=== PATIENT | female | born 1950 | race Caucasian/White ===

== ENCOUNTER 2021-11-21 11:27 | Outpatient (REF) | payer MEDICAID, SELFPAY ==
--- NOTE | ~2021-11-21 | MM_ITS ---
EXAMINATION: MM SCREENING DIGITAL BREAST TOMOSYNTHESIS, BILATERAL CLINICAL INFORMATION: Screening. Asymptomatic. Prior mammography from [place] currently unavailable. Age 71. The lifetime risk of breast cancer based on the Tyrer-Cuzick Model is 2%. COMPARISON: None. TECHNIQUE: Digital breast tomosynthesis is performed in both the craniocaudal and mediolateral oblique views along with computer-aided detection (CAD). Synthesized 2D images are generated from the tomosynthesis. FINDINGS: There are scattered areas of fibroglandular density (ACR BI-RADS breast composition Category b). There is no significant mass or architectural abnormality or abnormal calcifications. There are some scattered coarse predominantly vascular calcifications. The axilla and skin contours are unremarkable. If prior outside mammography is able to be retrieved, comparison will be made in an addendum report. MM/MM tomosynthesis screening BI IMPRESSION: No mammographic evidence of malignancy. ASSESSMENT: BI-RADS 1: Negative RECOMMENDATION: Routine annual mammography screening. This patient's information was entered into a reminder system with a target due date for their next mammogram.
== END 2021-11-21 11:28 | disposition home or self-care (01) ==
LOC: HO.MAMMO 11:27
PROVIDERS: PCP Family Medicine; Visit Provider Family Medicine
DX: Z12.31 Encounter for screening mammogram for malignant neoplasm of breast (principal)
CPT/HCPCS: 77063; 77067

== ENCOUNTER 2021-12-04 09:34 | Outpatient (REF) | payer MEDICAID, SELFPAY ==
[2021-12-04 10:53] LABS: MANUAL DIFF FLAG NO
[2021-12-04 11:10] LABS: Basophils Percent Auto 0.5 % (0-2); Eosinophils Absolute Auto 0.1 X10*3/uL (0.0-0.4); Eosinophils Percent Auto 1.1 % (0-4); Hematocrit 38.9 % (37.0-47.0); Hemoglobin 13.3 g/dl (12.0-16.0); Imm Gran Abs Auto 0.02 X10*3/uL (0.00-0.03); Imm Gran Pct Auto 0.3 % (0.0-0.4); Lymphocytes Absolute Auto 2.1 X10*3/uL (1.2-4.9); Lymphocytes Percent Auto 33.2 % (20-40); Mean Corpuscular HGB Conc 34.2 g/dl (31.0-35.0); Mean Corpuscular Hemoglobin 30.3 pg (27.0-33.0); Mean Corpuscular Volume 88.6 fL (80.0-98.0); Mean Platelet Volume 8.6 fL (9.4-12.3); Monocytes Absolute Auto 0.4 X10*3/uL (0.1-1.2); Monocytes Percent Auto 5.8 % (2-11); Neutrophils Absolute Auto 3.7 x10*3/uL (2.0-8.3); Neutrophils Percent Auto 59.1 % (45-73); Platelet Count 219 X10*3/uL (160-400); Red Blood Count 4.39 X10*6/uL (4.20-5.50); Red Cell Distribution Width 12.4 % (11.0-16.0); White Blood Count 6.2 X10*3/uL (4.8-10.8)
[2021-12-04 11:48] LABS: Erythrocyte Sedimentation Rate 7 MM/HR (0-20)
[2021-12-05 13:42] LABS: IgA 256 mg/dL (70-320); IgG 1296 mg/dL (600-1540); IgM 92 mg/dL (50-300)
== END 2021-12-04 09:35 | disposition home or self-care (01) ==
LOC: HO.LAB 09:34
PROVIDERS: PCP Family Medicine; Visit Provider Hospitalist
DX: Z23 Encounter for immunization (principal); R05.3 Chronic cough; J45.909 Unspecified asthma, uncomplicated
CPT/HCPCS: 36415; 82784; 82785; 85025; 85652; 86003; 90670; 99202

== ENCOUNTER 2022-01-03 08:23 | Outpatient (REF) | payer MEDICAID, SELFPAY ==
[2022-01-03 10:50] LABS: Alanine Aminotransferase 33 U/L (0-31); Albumin Level 4.3 g/dL (3.5-5.0); Alkaline Phosphatase 86 U/L (39-117); Anion Gap 10 (12-20); Aspartate Amino Transferase 32 U/L (5-31); Bilirubin Total 0.5 mg/dL (0.0-1.0); Blood Urea Nitrogen 13 mg/dL (9-16); Calcium 9.8 mg/dL (8.4-10.2); Carbon Dioxide 29 mmol/L (22-29); Chloride 101 mmol/L (96-108); Estimated Glomerular Filt Rate > 60; Glucose Random 86 mg/dL (60-115); Potassium 4.3 mmol/L (3.3-5.1); Sodium 136 mmol/L (135-145); Total Protein 7.4 g/dL (6.5-8.0)
== END 2022-01-03 08:24 | disposition home or self-care (01) ==
LOC: HO.LAB 08:23
PROVIDERS: PCP Family Medicine; Referring Provider Family Medicine; Visit Provider Nurse Practitioner Family
DX: Z12.11 Encounter for screening for malignant neoplasm of colon (principal)
CPT/HCPCS: 36415; 80053; 99202

== ENCOUNTER 2022-02-15 08:55 | Outpatient (REF) | payer MEDICAID, SELFPAY ==
--- NOTE | 2022-02-15 | PFT_ITS ---
INDICATION: COPD. SPIROMETRY: FEV1 to FVC of 66% with an FEV1 of 1.21 L, which is 70% predicted, FVC of 1.83 L, which is 80% predicted. No significant response to bronchodilators noted. [id number] 39% predicted. Maximum voluntary ventilation 67% predicted. LUNG VOLUMES: Total lung capacity 72% predicted with residual volume of 70% predicted. DIFFUSION CAPACITY: DLCO 89% predicted. COMPARISONS: None. INTERPRETATION: This is an obstructive ventilatory defect consistent with moderate COPD. Also has significant small airways disease, likely diagnosed with asthma, COPD overlap syndrome. Mild decrease in maximum voluntary ventilation secondary to likely deconditioning. In addition to that, there is a restrictive ventilatory defect consistent with mild restrictive lung disease of unclear etiology. The diffusion capacity is within normal limits. Clinical correlation warranted. Jose Lovelace MD MR/MODL / [id number]
== END 2022-02-15 08:56 | disposition home or self-care (01) ==
LOC: HO.RESP 08:55
PROVIDERS: PCP Family Medicine; Visit Provider Hospitalist
DX: J44.9 Chronic obstructive pulmonary disease, unspecified (principal); R05.3 Chronic cough; T78.40XA Allergy, unspecified, initial encounter
CPT/HCPCS: 94060; 94727; 94729; 99212

== ENCOUNTER 2022-04-20 08:20 | Day surgery (SDC) | payer MEDICAID, SELFPAY ==
[2022-04-16 10:20] VITALS: BMI 23.4
--- NOTE | 2022-04-19 11:43 | P.CONAN_ITS ---
Documented by User: Vicky Esparza NP 04/19/22 11:44 HPI - Anesthesia Eval Consult details Narrative: 71yo F for Colonoscopy PMFSH Active Problems Active Problems: All Active Problems (Updated 02/15/22 @ 19:46 by Jose Lovelace MD) Allergies (Acute) Asthma-COPD overlap syndrome (Acute) Chronic cough (Acute) Asthma (Acute) Past Medical History Medical History (Updated 02/15/22 @ 19:46 by Jose Lovelace MD) Allergies Asthma Asthma-COPD overlap syndrome Chronic cough Family History Family History (Updated 01/03/22 @ 08:36 by ZACHARY Shine) Daughter Stomach cancer Daughter HTN (hypertension) Daughter HTN (hypertension) Surgical History Surgical History (Updated 01/03/22 @ 08:35 by ZACHARY Shine) History of surgery on lower extremity Social History Social History Patient Tobacco Use Status: Never used Tobacco Second Hand Smoke Exposure: No Use of substances other than those prescribed or required for medical reasons: No Are you DNR?: No Advance Directives: No Advance Directives Information Provided: Yes Advance Directives on File: No Meds Allergies Allergy/AdvReac Type Severity Reaction Status Date / Time No Known Allergies Allergy Verified 02/15/22 10:28 Home Medications Medication Instructions Recorded Confirmed Last Taken Type beclomethasone dipropionate 40 2 inh inhalation Q12H 12/04/21 Unknown History mcg/actuation HFA breath activated aerosol rosuvastatin 20 mg tablet 20 mg PO DAILY 12/04/21 Unknown History atorvastatin 20 mg tablet 20 mg PO DAILY 01/03/22 Unknown History Exam Exam Date and Time: April 19, 2022 1143 Height,Weight and Vital Signs: Height 4 ft 11 in Weight 52.617 kg Pertinent Lab Results Pertinent Lab Results: Laboratory Tests 12/04/21 01/03/22 10:52 09:48 WBC 6.2 Hgb 13.3 Hct 38.9 Plt Count 219 Sodium 136 Potassium 4.3 Chloride 101 Carbon Dioxide 29 BUN 13 Creatinine 0.73 Narrative Narrative: PFT 01/2022 INTERPRETATION:? This is an obstructive ventilatory defect consistent with moderate COPD.? Also has significant small airways disease, likely diagnosed with asthma, COPD overlap syndrome.? Mild decrease in maximum voluntary ventilation secondary to likely deconditioning.? In addition to that, there is a restrictive ventilatory defect consistent with mild restrictive lung disease of unclear etiology.? The diffusion capacity is within normal limits.? Clinical correlation warranted. Assessment and Plan Assessment Anesthesia Assessment: Chart Reviewed Documented by User: Lady Kat MD 04/20/22 09:23 [facility] Past Medical History Medical History (Updated 02/15/22 @ 19:46 by Jose Lovelace MD) Allergies Asthma Asthma-COPD overlap syndrome Chronic cough Family History Family History (Updated 01/03/22 @ 08:36 by ZACHARY Shine) Daughter Stomach cancer Daughter HTN (hypertension) Daughter HTN (hypertension) Family history of problems with anesthesia: No Surgical History Surgical History (Updated 01/03/22 @ 08:35 by ZACHARY Shine) History of surgery on lower extremity History of Problems with Anesthesia: No Social History Social History Patient Tobacco Use Status: Never used Tobacco Second Hand Smoke Exposure: No Use of substances other than those prescribed or required for medical reasons: No Are you DNR?: No Advance Directives: No Advance Directives Information Provided: Yes Advance Directives on File: No Meds Allergies Allergy/AdvReac Type Severity Reaction Status Date / Time No Known Allergies Allergy Verified 02/15/22 10:28 Home Medications Medication Instructions Recorded Confirmed Last Taken Type beclomethasone dipropionate 40 2 inh inhalation Q12H 12/04/21 Unknown History mcg/actuation HFA breath activated aerosol rosuvastatin 20 mg tablet 20 mg PO DAILY 12/04/21 Unknown History atorvastatin 20 mg tablet 20 mg PO DAILY 01/03/22 Unknown History Exam Airway Mallampati Class: III TM Dist: >3cm Neck ROM: Full Denture: Lower Partial: Upper Loose/Missing/Broken Teeth: Yes, Upper and Lower Assessment and Plan Assessment Anesthesia Assessment: Anesthesia Plan Discussed Final Anesthetic Review Family History of Problems with Anesthesia: No History of Problems with Anesthesia: No NPO: Yes ASA Class: II Final Preanesthetic Review: No Changes in Pt Med Stat, Meds/Allgs Chart Reviewed, Consent Obtained/Reviewed and Anes Risks/Benef Reviewed Patient Risk: Low Procedure Risk: Low Anesthetic Plan Anesthetic Plan: MAC: Disposition: Standard PACU
[2022-04-20 08:40] VITALS: BP 140/68; PULSE 70; RESP 16; TEMP 36.2; O2SAT 97
[2022-04-20] MEDS: Lactated Ringers 1,000 ML 100 ML IVCONT (09:05)
--- NOTE | 2022-04-20 09:20 | MHC.SHP ---
Pre-Procedural Eval Section A Date of Service: 04/20/22 The patient is an INPATIENT: No The History & Physical has been completed within 30 days and I have reviewed it.: No Section B Chief Complaint: screening Details of Present Illness: Colon cancer screening Relevant Family History (Specify if Yes): Yes Relevant Social History: None Present Medications: see Short Stay Collaborative assessment Medical History: Significant History (Asthma, Chronic cough) History of Previous Operations: Relevant previous surgery/procedure and date(s) (History of surgery on lower extremity) Allergies: Allergies Allergy/AdvReac Type Severity Reaction Status Date / Time No Known Allergies Allergy Verified 02/15/22 10:28 Review of Systems Sugical H&P ROS: Negative: Constitution, Cardiovascular, Respiratory and Gastrointestinal Exam Surgical H&P Exam: Normal: Heart, Normal: Lungs, Normal: Extremities and Normal: Abdomen Plan Diagnosis/Plan: Unchanged I have reviewed the history and physical and performed a pertinent physical examination on my patient. No changes have occurred unless specified.
--- NOTE | 2022-04-20 09:24 | P.BOP_ITS ---
Brief Operative Note Date of Service: 04/20/22 Pre-op diagnosis: Colon cancer screening Post-op diagnosis: other (Colon polyp, diverticulosis, hemorrhoids) Procedure: COLONOSCOPY TILL CECUM WITH SNARE POLYPECTOMY AND SUBMUCOSAL INJECTION Consent: Indications for the procedure and potential complications of bleeding, perforation, reaction to medications and missed diagnosis were discussed with the patient and informed consent was obtained. Instrument: Olympus PCF H 190 L variable stiffness pediatric colonoscope Monitoring: Vital signs and clinical assessment, intermittent blood pressure monitoring, continuous EKG monitoring, Pulse oximetry and Carbon Dioxide monitoring were done throughout the procedure. Colon withdrawl time was 16 minutes. Procedure: The patient was placed in the left lateral decubitis position and pre-procedure medications were administered. After a digital rectal examination of the ano-rectum, the video colonoscope was inserted into the rectum and advanced through the colon to the cecum. The colonoscope was slowly withdrawn in a retrograde panoramic fashion and the colon mucosa was carefully examined including a retroflexed view of the rectum. Findings and interventions are described below. Procedure Difficulty: Without difficulty Findings: Terminal Ileum: Not evaluated Cecum: Normal Ascending Colon: A 1.5 to 2 cms flat polyp in the proximal ascending colon. Polyp was raised with 5 cc of Orise solution and removed with a hot snare. Transverse Colon: Normal Descending Colon: Moderate diverticulosis Sigmoid Colon: Moderate diverticulosis Rectum: Normal Ano-rectum: Moderate internal hemorrhoids Colon preparation: Excellent Impression and Post Procedure Diagnosis: Colonoscopy Findings: One medium sized polyp removed Moderate diverticulosis seen in the left colon Moderate hemorrhoids on retroflexed exam. Plan: Await pathology results Patient has an appointment on 05/04/22 in the GI Clinic with Doris Otoole FNP-BC . Repeat Colonoscopy interval based on path results - in 3 years if polyp is adenomatous and 10 years if polyps are hyperplastic. Above findings were reviewed with the patient and colon polyps and diverticulosis handouts were given in the discharge area Surgeon: Rose Wooten MD Anesthesia: MAC (Dr Kat) Was an Automatic Drill Operator used for this Procedure?: Yes Automatic Drill Operator: Landen Reed Estimated blood loss (mL): 0 Pathology: other (A:ASCENDING COLON POLYP-ORISE USED) Condition: stable Disposition: PACU
[2022-04-20 10:09] VITALS: BP 124/71; PULSE 61; RESP 16; TEMP 36.2; O2SAT 99
[2022-04-20 10:24] VITALS: BP 133/64; PULSE 66; RESP 16; TEMP 36.2; O2SAT 99
--- NOTE | 2022-04-20 14:58 | W.PM.OPN ---
Operative Note Operative Note Date of Service: 04/21/22 Narrative: Pre-op diagnosis: Colon cancer screening Post-op diagnosis:?other (Colon polyp, diverticulosis, hemorrhoids) Procedure: COLONOSCOPY TILL CECUM WITH SNARE POLYPECTOMY AND SUBMUCOSAL INJECTION Consent: Indications for the procedure and potential complications of bleeding, perforation, reaction to medications and missed diagnosis were discussed with the patient and informed consent was obtained. Instrument: Olympus PCF H 190 L variable stiffness pediatric colonoscope Monitoring: Vital signs and clinical assessment, intermittent blood pressure monitoring, continuous EKG monitoring, Pulse oximetry and Carbon Dioxide monitoring were done throughout the procedure. Colon withdrawl time was 16 minutes. Procedure: The patient was placed in the left lateral decubitis position and pre-procedure medications were administered. After a digital rectal examination of the ano-rectum, the video colonoscope was inserted into the rectum and advanced through the colon to the cecum. The colonoscope was slowly withdrawn in a retrograde panoramic fashion and the colon mucosa was carefully examined including a retroflexed view of the rectum. Findings and interventions are described below. Procedure Difficulty: Without difficulty Findings: Terminal Ileum: Not evaluated Cecum:? Normal Ascending Colon:? A 1.5 to 2 cms flat polyp in the proximal ascending colon.? Polyp was raised with 5 cc of Orise solution and removed with a hot snare. Transverse Colon:? Normal Descending Colon:? Moderate diverticulosis Sigmoid Colon:? Moderate diverticulosis Rectum:? Normal Ano-rectum:? Moderate internal hemorrhoids Colon preparation: Excellent ? Impression and Post Procedure Diagnosis: Colonoscopy Findings: One medium sized polyp removed Moderate diverticulosis seen in the left colon Moderate hemorrhoids on retroflexed exam. Plan: Await pathology results Patient has an appointment on 05/04/22 in the GI Clinic with ? Doris Otoole FNP-MICHAEL . Repeat Colonoscopy interval based on path results - in 3 years if polyp is adenomatous and 10 years if polyps are hyperplastic. Above findings were reviewed with the patient and colon polyps and diverticulosis handouts were given in the discharge area Surgeon: Rose Wooten MD Anesthesia:?MAC (Dr Kat) Was an Hydraulic Modeling Engineer used for this Procedure?:?Yes Hydraulic Modeling Engineer:?Landen Reed Estimated blood loss (mL):?0 Pathology:?other (A:ASCENDING COLON POLYP-ORISE USED) Condition:?stable Disposition:?PACU
== END 2022-04-20 11:05 | disposition home or self-care (01) ==
PROVIDERS: PCP Family Medicine; Visit Provider Internal Medicine Gastroenterology
PROC: 0DJD8ZZ Inspection of Lower Intestinal Tract, Via Natural or Artificial Opening Endoscopic (ICD-10-PCS; CPT 45378; principal; 2022-04-20 09:30)
DX: Z12.11 Encounter for screening for malignant neoplasm of colon (principal); D12.2 Benign neoplasm of ascending colon; K57.30 Diverticulosis of large intestine without perforation or abscess without bleeding; K64.8 Other hemorrhoids; Z80.0 Family history of malignant neoplasm of digestive organs; J45.909 Unspecified asthma, uncomplicated; R05.3 Chronic cough
CPT/HCPCS: 45385; 45381; 88305

== ENCOUNTER → 2022-05-04 08:21 | Outpatient (BNVA) | payer MEDICAID, SELFPAY | PROVIDERS: PCP Family Medicine; Visit Provider Nurse Practitioner Family | DX: D36.9 Benign neoplasm, unspecified site (principal); Z98.890 Other specified postprocedural states | CPT/HCPCS: 99212 ==

== ENCOUNTER 2022-06-25 07:16 | Outpatient (REF) | payer MEDICAID, SELFPAY ==
[2022-06-25 09:09] LABS: Alanine Aminotransferase 36 U/L (0-31); Albumin Level 4.5 g/dL (3.5-5.0); Alkaline Phosphatase 93 U/L (39-117); Aspartate Amino Transferase 33 U/L (5-31); Bilirubin Direct 0.2 mg/dL (0.0-0.5); Bilirubin Total 0.4 mg/dL (0.0-1.0); Cholesterol 270 mg/dL; HDL Cholesterol 54 mg/dL; LDL Cholesterol Calculated 192 mg/dl; Total Protein 7.5 g/dL (6.5-8.0); Triglycerides 124 mg/dL
== END 2022-06-25 07:17 | disposition home or self-care (01) ==
LOC: HO.LAB 07:16
PROVIDERS: PCP Family Medicine; Visit Provider Family Medicine
DX: E78.5 Hyperlipidemia, unspecified (principal)
CPT/HCPCS: 36415; 80061; 80076

== ENCOUNTER 2022-06-27 07:10 | Outpatient (REF) | payer MEDICAID, SELFPAY ==
[2022-06-27 07:29] LABS: MANUAL DIFF FLAG NO
[2022-06-27 08:03] LABS: Appearance Urine Clear; Color Urine Yellow; Glucose Urine UA Negative (Negative); Leukocyte Esterase Urine Trace (Negative); Nitrite Urine Negative (Negative); PH 7.5 (5.0-9.0); Specific Gravity - Urine 1.015 (1.005-1.025); UMIC TRIGGER UA YES; Urine Blood Negative (Negative); Urine Ketones Negative (Negative); Urine Protein Negative (Neg-Trace)
[2022-06-27 08:04] LABS: Basophils Percent Auto 0.6 % (0-2); Eosinophils Absolute Auto 0.1 X10*3/uL (0.0-0.4); Eosinophils Percent Auto 2.7 % (0-4); Hematocrit 41.3 % (37.0-47.0); Imm Gran Abs Auto 0.02 X10*3/uL (0.00-0.03); Imm Gran Pct Auto 0.4 % (0.0-0.4); Lymphocytes Percent Auto 38.8 % (20-40); Mean Corpuscular HGB Conc 33.9 g/dl (31.0-35.0); Mean Corpuscular Hemoglobin 29.5 pg (27.0-33.0); Mean Corpuscular Volume 87.1 fL (80.0-98.0); Mean Platelet Volume 8.9 fL (9.4-12.3); Monocytes Absolute Auto 0.4 X10*3/uL (0.1-1.2); Monocytes Percent Auto 7.3 % (2-11); Neutrophils Absolute Auto 2.6 x10*3/uL (2.0-8.3); Neutrophils Percent Auto 50.2 % (45-73); Platelet Count 230 X10*3/uL (160-400); Red Blood Count 4.74 X10*6/uL (4.20-5.50); Red Cell Distribution Width 12.6 % (11.0-16.0); White Blood Count 5.2 X10*3/uL (4.8-10.8)
[2022-06-27 08:08] LABS: Bacteria Urine None Seen (None Seen); Hyaline Casts Urine 0-2 /LPF (0-2); RBC Urine 0-2 /HPF (0-2); Squamous Epithelial Cell Urine 0-2 /HPF (0-2); WBC Urine 0-5 /HPF (0-5)
[2022-06-27 08:27] LABS: Alanine Aminotransferase 33 U/L (0-31); Albumin Level 4.5 g/dL (3.5-5.0); Alkaline Phosphatase 90 U/L (39-117); Anion Gap 14 (12-20); Aspartate Amino Transferase 31 U/L (5-31); Bilirubin Direct 0.2 mg/dL (0.0-0.5); Bilirubin Total 0.6 mg/dL (0.0-1.0); Blood Urea Nitrogen 12 mg/dL (9-16); C Reactive Protein 0.39 mg/dL (< or = 0.50); Calcium 9.7 mg/dL (8.4-10.2); Carbon Dioxide 28 mmol/L (22-29); Chloride 101 mmol/L (96-108); Cholesterol 268 mg/dL; Estimated Glomerular Filt Rate > 60; Glucose Random 79 mg/dL (60-115); HDL Cholesterol 53 mg/dL; LDL Cholesterol Calculated 188 mg/dl; Potassium 4.3 mmol/L (3.3-5.1); Sodium 139 mmol/L (135-145); Total Protein 7.5 g/dL (6.5-8.0); Triglycerides 138 mg/dL
[2022-06-27 10:02] LABS: Erythrocyte Sedimentation Rate 9 MM/HR (0-20)
[2022-06-29 08:47] LABS: Rubella IgG Antibody 1.39 Index
== END 2022-06-27 07:11 | disposition home or self-care (01) ==
LOC: HO.LAB 07:10
PROVIDERS: Absent Provider Family Medicine; PCP Family Medicine; Visit Provider Internal Medicine
DX: R21 Rash and other nonspecific skin eruption (principal); E78.5 Hyperlipidemia, unspecified; Z01.84 Encounter for antibody response examination
CPT/HCPCS: 36415; 80053; 80061; 81001; 81003; 82248; 85025; 85652; 86140; 86735; 86762; 86765

== ENCOUNTER 2022-07-18 05:05 | Outpatient (REF) | payer MEDICAID, SELFPAY ==
--- NOTE | ~2022-07-18 | XR_ITS ---
EXAMINATION: KNEE X-RAY CLINICAL INFORMATION: Pain COMPARISON: None TECHNIQUE: AP standing view of both knees and lateral and sunrise view of the right knee FINDINGS: Right: Bone alignment is normal. No fracture or dislocation. Arthritis at the medial femoral tibial and patellofemoral joints. Small joint effusion. Standing AP view of the left knee demonstrates medial femoral tibial joint space narrowing. XR/XR knee RT 2V IMPRESSION: Degenerative changes.
--- NOTE | ~2022-07-18 | XR_ITS ---
EXAMINATION: KNEE X-RAY CLINICAL INFORMATION: Pain COMPARISON: None TECHNIQUE: AP standing view of both knees and lateral and sunrise view of the right knee FINDINGS: Right: Bone alignment is normal. No fracture or dislocation. Arthritis at the medial femoral tibial and patellofemoral joints. Small joint effusion. Standing AP view of the left knee demonstrates medial femoral tibial joint space narrowing. XR/XR knee standing BI IMPRESSION: Degenerative changes.
== END 2022-07-18 05:06 | disposition home or self-care (01) ==
LOC: HO.HOSX 05:05
PROVIDERS: Visit Provider Physician Assistant
DX: M25.561 Pain in right knee (principal); M25.562 Pain in left knee; M17.0 Bilateral primary osteoarthritis of knee
CPT/HCPCS: 20610; 73560; 73565; 99202; J1040

== ENCOUNTER 2022-07-30 08:51 | Outpatient (REF) | payer MEDICAID, SELFPAY ==
--- NOTE | ~2022-07-30 | US_ITS ---
EXAMINATION: US ABDOMEN COMPLETE CLINICAL INFORMATION: Elevated liver enzymes. COMPARISON: None TECHNIQUE: Real-time imaging of the abdominal viscera. FINDINGS: PANCREAS: Not well visualized due to bowel gas ABDOMINAL AORTA: The proximal, mid, and distal segments are normal in caliber. INFERIOR VENA CAVA: Visualized portions are normal. LIVER: The liver is normal in size. The liver contour is normal. Liver echotexture is increased. No focal hepatic lesion. There is no intrahepatic biliary duct dilatation seen. GALLBLADDER: The gallbladder is physiologically distended. Multiple mobile gallstones are present. No evidence of gallbladder wall thickening or pericholecystic fluid. COMMON BILE DUCT: Normal in caliber measuring 0.6 cm in diameter. RIGHT KIDNEY: Normal. No hydronephrosis. No renal calculi or focal parenchymal lesions. The kidney measures 10.2 cm in maximum dimension. LEFT KIDNEY: Normal. No hydronephrosis. No renal calculi or focal parenchymal lesions. The kidney measures 10.5 cm in maximum dimension. SPLEEN: Normal. The spleen measures 9.1 cm in maximum dimension. FREE FLUID: None. US/US abdomen complete IMPRESSION: Echogenic liver probably representing fatty infiltration. Gallstones.
== END 2022-07-30 08:52 | disposition home or self-care (01) ==
LOC: HO.HMGCX 08:51
PROVIDERS: Visit Provider Family Medicine
DX: R74.01 Elevation of levels of liver transaminase levels (principal)
CPT/HCPCS: 76700

== ENCOUNTER 2022-08-17 | Outpatient (REF) | payer MEDICAID, SELFPAY | END 2022-08-17 00:01 | disposition home or self-care (01) | LOC: CF | PROVIDERS: Visit Provider Hospitalist | DX: J44.9 Chronic obstructive pulmonary disease, unspecified (principal); R05.3 Chronic cough; R06.00 Dyspnea, unspecified | CPT/HCPCS: 99212 ==

== ENCOUNTER 2022-12-18 07:52 | Outpatient (REF) | payer MEDICAID, SELFPAY ==
--- NOTE | ~2022-12-18 | MM_ITS ---
EXAMINATION: MM SCREENING DIGITAL BREAST TOMOSYNTHESIS, BILATERAL CLINICAL INFORMATION: Screening. Asymptomatic. The lifetime risk of breast cancer based on the Tyrer-Cuzick Model is 2%. COMPARISON: Mammography: 07/21/2022 (new baseline) TECHNIQUE: Digital breast tomosynthesis is performed in both the craniocaudal and mediolateral oblique views along with computer-aided detection (CAD). Synthesized 2D images are generated from the tomosynthesis. FINDINGS: There are scattered areas of fibroglandular density (ACR BI-RADS breast composition Category b). There are no significant masses, abnormal calcifications, or other abnormalities. No architectural abnormality or developing density or significant changes from prior new baseline exam. The axilla and skin contours are unremarkable. MM/MM tomosynthesis screening BI IMPRESSION: No mammographic evidence of malignancy. ASSESSMENT: BI-RADS 1: Negative RECOMMENDATION: Routine annual mammography screening. This patient's information was entered into a reminder system with a target due date for their next mammogram.
--- NOTE | ~2022-12-18 | MM_ITS ---
EXAMINATION: BONE DENSITOMETRY CLINICAL INDICATION: Menopause. COMPARISON: None (current study represents initial baseline exam). TECHNIQUE: Using a [employer] DXA System (software version: 13.1) manufactured by [employer], dual-energy x-ray absorptiometry was performed of the lumbar spine and left hip. The images are of good technical quality. Summary results are attached. FINDINGS: AP SPINE L1-L3 (excluding L4): The data of L1-L4 has been changed to exclude the L4 vertebral body, because degenerative changes at this level may cause overestimation of lumbar spine density. BMD 0.753 g/cm2, Z-score -1.4, T-score -3.5, osteoporosis. LEFT FEMUR, NECK: BMD 0.773 g/cm2, Z-score 0.1, T-score -1.9, osteopenia. LEFT FEMUR, TOTAL: BMD 0.792 g/cm2, Z-score 0.1, T-score -1.7, osteopenia. IDENTIFIED RISK FACTORS: Early menopause, glucocorticoids (chronic), secondary osteoporosis. HISTORY OF FRACTURE: None listed. MEDICATIONS: None listed. MM/XR DEXA axial skeleton IMPRESSION: 1. DIAGNOSIS: Osteoporosis based on the lowest T-score value of -3.5 in the lumbar spine applying World Health Organization criteria. 2. 10-YEAR FRACTURE RISK PREDICTION, FRAX: According to the guidelines, FRAX calculation should only be performed on patients in the osteopenia bone density category. Therefore, FRAX was not performed on this patient. 3. Treatment Recommendations: NOF guidelines recommend consideration for treatment in postmenopausal women and men age 50 and older presenting with the following: -A hip or vertebral (clinical or morphometric) fracture. -T-score less than or equal to -2.5 at the femoral neck or spine after appropriate evaluation to exclude secondary causes. -Low bone mass at the hip or spine and a 10-year fracture probability by FRAX of greater than or equal to 3% for hip fracture or greater than or equal to 20% for major osteoporotic fracture based on the [place] adapted WHO algorithm. 4. Other Recommendations: All treatment decisions require clinical judgment and consideration of individual patient factors, including patient preferences, comorbidities, previous drug use, risk factors not captured in the FRAX model (e.g. frailty, falls, vitamin D deficiency, increased bone turnover, interval significant decline in bone density) and possible under or overestimation of fracture risk by FRAX. Additional medical evaluation for secondary cause of low bone mineral density may be appropriate. FUTURE SCAN RECOMMENDATION: People with diagnosed cases of osteoporosis or at high risk for fracture should have regular bone mineral density tests. For patients eligible for Medicare, routine testing is allowed once every 2 years. The testing frequency can be increased to one year for patients who have rapidly progressing disease, those who are receiving or discontinuing medical therapy to restore bone mass, or have additional risk factors.
== END 2022-12-18 07:53 | disposition home or self-care (01) ==
LOC: HO.MAMMO 07:52
PROVIDERS: Visit Provider Family Medicine
DX: Z12.31 Encounter for screening mammogram for malignant neoplasm of breast (principal); Z13.820 Encounter for screening for osteoporosis; Z78.0 Asymptomatic menopausal state
CPT/HCPCS: 77063; 77067; 77080

== ENCOUNTER → 2023-01-29 14:11 | Outpatient (BNVA) | payer MEDICAID, SELFPAY | PROVIDERS: PCP Family Medicine; Visit Provider Nurse Practitioner Family | DX: M25.551 Pain in right hip (principal); M47.816 Spondylosis without myelopathy or radiculopathy, lumbar region; M25.561 Pain in right knee; M25.562 Pain in left knee | CPT/HCPCS: 99202 ==

== ENCOUNTER → 2023-02-21 09:16 | Outpatient (BNVA) | payer MEDICAID, SELFPAY | PROVIDERS: PCP Family Medicine; Visit Provider Surgery Vascular Surgery | DX: I83.11 Varicose veins of right lower extremity with inflammation (principal); M25.561 Pain in right knee; M25.562 Pain in left knee | CPT/HCPCS: 99202 ==

== ENCOUNTER 2023-03-06 08:22 | Outpatient (REF) | payer MEDICAID, SELFPAY ==
--- NOTE | ~2023-03-06 | XR_ITS ---
EXAMINATION: XR LUMBOSACRAL SPINE CLINICAL INFORMATION: Spondylosis without myelopathy or radiculopathy, lumbar region COMPARISON: None available. TECHNIQUE: Three views of the lumbosacral spine. FINDINGS: The bones are mildly demineralized. There are 4 nonrib-bearing lumbar-type vertebral bodies and a transitional lumbosacral vertebral body with large transverse processes which for the purposes study will be called L5. The height of the vertebral bodies is well-maintained. There is mild disc space narrowing at L3-L4 and L4-L5. There is marked degenerative facet joint disease at L4-L5 and L5-S1. There is mild retrolisthesis of L2 with respect to L3 and mild anterolisthesis of L4 with respect to L5. There is a grade 1 anterolisthesis of L5 with respect to S1. XR/XR lumbar spine 2-3V IMPRESSION: 1. Degenerative disc disease at L3-L4 and L4-L5. 2. Marked degenerative facet joint disease at L4-L5 and L5-S1. 3. Multilevel spondylolisthesis.
--- NOTE | ~2023-03-06 | US_ITS ---
EXAMINATION: US LOWER EXTREMITY VENOUS (REFLUX EXAM), BILATERAL CLINICAL INDICATION: Chronic venous insufficiency with lower extremity varicose veins with pain and inflammation. History of prior right lower extremity vein stripping/phlebectomy COMPARISON: None. TECHNIQUE: Color flow triplex imaging and compression Doppler was performed to evaluate both the deep and the superficial systems bilaterally. To evaluate the superficial system, the examination was performed in the upright position. Color-flow Doppler ultrasound and compression ultrasound were utilized. In addition, maneuvers were utilized to demonstrate reflux. FINDINGS: 1. DEEP VENOUS ULTRASOUND OF THE RIGHT LOWER EXTREMITY: Common Femoral Vein: Compressible, normal respiratory variation and augmented flow. Femoral Vein: Compressible, normal color flow and augmentation. Popliteal Vein: Compressible, normal augmentation. Deep Reflux: There is reflux in the superficial femoral vein and popliteal vein measuring greater than 2 seconds There is no evidence of a Leo's cyst. 2. SUPERFICIAL ULTRASOUND WITH DOPPLER OF RIGHT LOWER EXTREMITY: GREAT SAPHENOUS VEIN: Saphenofemoral Junction: 0.4 cm; Reflux: 0 ms Proximal Thigh: Not visualized Mid Thigh: 0.2 cm; Reflux: 0 ms Above Knee: 0.1 cm; Reflux: 0 ms At Knee: 0.2 cm; Reflux: 0 ms Below Knee: Not visualized Mid Calf: Not visualized Ankle: Not visualized DUPLICATED MEDIAL GREAT SAPHENOUS VEIN: Diameter: None imaged Reflux: NA DUPLICATED LATERAL GREAT SAPHENOUS VEIN: Diameter: None imaged Reflux: NA SMALL SAPHENOUS VEIN: Proximal: 0.2 cm; Reflux: 0 ms Mid: 0.3 cm; reflux: 2136 ms Distal: 0.1 cm; Reflux: 0 ms VEIN OF GIACOMINI: Size: NA Reflux: NA PERFORATORS: Location: None significant Size: NA Reflux: NA VARICOSITIES: Location: Proximal and mid calf off the small saphenous vein Size: 0.3 to 0.4 cm Reflux: Ranging from 2644 ms to 2700 ms VARICOSITIES: Location: Proximal calf arising from commercial insulator vein Size: 0.4 cm Reflux: 704 ms 3. DEEP VENOUS ULTRASOUND OF THE LEFT LOWER EXTREMITY: Common Femoral Vein: Compressible, normal respiratory variation and augmented flow. Femoral Vein: Compressible, normal color flow and augmentation. Popliteal Vein: Compressible, normal augmentation. Deep Reflux: There is reflux in the popliteal vein measuring 2004 ms There is no evidence of a Leo's cyst. 4. SUPERFICIAL ULTRASOUND WITH DOPPLER OF LEFT LOWER EXTREMITY: GREAT SAPHENOUS VEIN: Saphenofemoral Junction: 0.7 cm; Reflux: 2528 ms Proximal Thigh: 0.3 cm; Reflux: 0 ms Mid Thigh: 0.2 cm; Reflux: 2456 ms Above Knee: 0.2 cm; Reflux: 0 ms At Knee: 0.4 cm; Reflux: 0 ms Below Knee: 0.2 cm; Reflux: 1820 ms Mid Calf: 0.2 cm; Reflux: 2020 ms Ankle: 0.2 cm; Reflux: 0 ms DUPLICATED MEDIAL GREAT SAPHENOUS VEIN: Diameter: 0.2 cm Reflux: None DUPLICATED LATERAL GREAT SAPHENOUS VEIN: Diameter: None imaged Reflux: NA SMALL SAPHENOUS VEIN: Proximal: 0.3 cm; Reflux: 0 ms Distal: 0.2 cm; Reflux: 0 ms VEIN OF GIACOMINI: Size: NA Reflux: NA PERFORATORS: Location: None significant Size: NA Reflux: NA VARICOSITIES: Location: None Imaged Size: NA Reflux: NA US/US venous duplex LE BI IMPRESSION: Right: Severe reflux in the right small saphenous vein with branching varicosities as described above. Additional varicosities seen in the medial calf arising from a commercial insulator vein. Segmental areas of the right great saphenous vein not visualized consistent with prior vein stripping. Deep venous reflux as described above Left: Severe reflux in the left great saphenous vein as described above. Deep venous reflux as described above
--- NOTE | ~2023-03-06 | XR_ITS ---
EXAMINATION: XR BILATERAL HIPS WITH AP PELVIS CLINICAL INFORMATION: Pain in right hip Pain COMPARISON: None available. TECHNIQUE: AP view of the pelvis and single views of each hip were obtained. FINDINGS: The bones are intact. No fracture. Sacroiliac and hip joints are normal. Moderate degenerative change of the pubic symphysis. Degenerative changes are seen in the lower lumbar spine. Small calcifications in the left side of the pelvis likely represents phleboliths XR/XR hip BI w PEL1V IMPRESSION: 1. No significant abnormality of the hips. 2. Degenerative changes of the pubic symphysis.
== END 2023-03-06 08:23 | disposition home or self-care (01) ==
LOC: HO.US 08:22
PROVIDERS: Absent Provider Nurse Practitioner Family; PCP Family Medicine; Visit Provider Surgery Vascular Surgery
DX: I83.11 Varicose veins of right lower extremity with inflammation (principal); M25.551 Pain in right hip; M47.816 Spondylosis without myelopathy or radiculopathy, lumbar region
CPT/HCPCS: 72100; 73521; 93970

== ENCOUNTER → 2023-03-08 08:57 | Outpatient (BNVA) | payer MEDICAID, SELFPAY | PROVIDERS: PCP Family Medicine; Visit Provider Hospitalist | DX: J44.9 Chronic obstructive pulmonary disease, unspecified (principal) | CPT/HCPCS: 99212 ==

== ENCOUNTER → 2023-03-26 14:44 | Outpatient (BNVA) | payer MEDICAID, SELFPAY | PROVIDERS: PCP Family Medicine; Visit Provider Surgery Vascular Surgery | DX: I83.11 Varicose veins of right lower extremity with inflammation (principal) | CPT/HCPCS: 99212 ==

== ENCOUNTER 2023-04-08 06:06 | Day surgery (SDC) | payer MEDICAID, SELFPAY ==
[2023-04-04 10:05] VITALS: BMI 23.2
--- NOTE | 2023-04-04 11:55 | HO.ANESPROP2 ---
Documented by User: Vicky Esparza NP 04/04/23 11:55 HPI - Anesthesia Eval Consult details Narrative: 72yo F for Right Micro Phlebectomy Leg 02/2023 Pulmo visit - stable moderate COPD with current tx PMFSH Active Problems Active Problems: All Active Problems (Updated 02/21/23 @ 10:38 by Jose Ortiz MD) Osteoarthritis of left knee (Acute) Right hip pain (Acute) Lumbar spondylosis (Acute) Lumbar radiculopathy, right (Acute) Bilateral knee pain (Acute) Varicose veins of right lower extremity with inflammation (Acute) Asthma (Acute) Chronic cough (Acute) Asthma-COPD overlap syndrome (Acute) Allergies (Acute) Tubular adenoma (Acute) Past Medical History Medical History Allergies Asthma Asthma-COPD overlap syndrome Chronic cough Tubular adenoma Family History Family History Daughter Stomach cancer Daughter HTN (hypertension) Daughter HTN (hypertension) Family history of problems with anesthesia: No Surgical History Surgical History (Updated 04/04/23 @ 10:01 by Doris Rogers RN) History of surgery on lower extremity Hx of colonoscopy History of Problems with Anesthesia: No Social History Social History Patient Tobacco Use Status: Never used Tobacco Second Hand Smoke Exposure: No Use of substances other than those prescribed or required for medical reasons: No Are you DNR?: No Advance Directives: No Advance Directives Information Provided: Yes Current occupational status: retired and disabled Current occupation: rt hand Meds Allergies Allergy/AdvReac Type Severity Reaction Status Date / Time No Known Allergies Allergy Unknown UNKNOWN Verified 03/26/23 14:51 [NO KNOWN ALLERGIES] Home Medications Medication Instructions Recorded Confirmed Last Taken Type cetirizine 10 mg tablet 10 mg PO DAILY 07/18/22 04/04/23 Unknown History alendronate 70 mg tablet 70 mg PO QWEEK 01/29/23 04/04/23 Unknown History amlodipine 10 mg tablet 10 mg PO QAM 01/29/23 04/04/23 04/08/23 History calcium carbonate 500 mg-vitamin 1 tab PO BID 01/29/23 04/04/23 Unknown History D3 10 mcg (400 unit) tablet (Oyster Shell Calcium-Vitamin D3) meloxicam 15 mg tablet 15 mg PO QAM 01/29/23 04/04/23 Unknown History atorvastatin 80 mg tablet 80 mg PO BEDTIME 04/04/23 04/04/23 Unknown History Exam Exam Date and Time: April 04, 2023 1155 Height,Weight and Vital Signs: Height 4 ft 11 in Weight 52.163 kg Assessment and Plan Assessment Anesthesia Assessment: Chart Reviewed Final Anesthetic Review Family History of Problems with Anesthesia: No History of Problems with Anesthesia: No Documented by User: Clotilde Mari MD 04/08/23 07:28 [facility] Past Medical History Medical History Allergies Asthma Asthma-COPD overlap syndrome Chronic cough Tubular adenoma Family History Family History Daughter Stomach cancer Daughter HTN (hypertension) Daughter HTN (hypertension) Surgical History Surgical History (Updated 04/04/23 @ 10:01 by Doris Rogers RN) History of surgery on lower extremity Hx of colonoscopy Social History Social History Patient Tobacco Use Status: Never used Tobacco Second Hand Smoke Exposure: No Use of substances other than those prescribed or required for medical reasons: No Are you DNR?: No Advance Directives: No Advance Directives Information Provided: Yes Current occupational status: retired and disabled Current occupation: rt hand Meds Allergies Allergy/AdvReac Type Severity Reaction Status Date / Time No Known Allergies Allergy Unknown UNKNOWN Verified 03/26/23 14:51 [NO KNOWN ALLERGIES] Home Medications Medication Instructions Recorded Confirmed Last Taken Type cetirizine 10 mg tablet 10 mg PO DAILY 07/18/22 04/04/23 Unknown History alendronate 70 mg tablet 70 mg PO QWEEK 01/29/2304/04/23 Unknown History amlodipine 10 mg tablet 10 mg PO QAM 01/29/23 04/04/23 04/08/23 History calcium carbonate 500 mg-vitamin 1 tab PO BID 01/29/23 04/04/23 Unknown History D3 10 mcg (400 unit) tablet (Oyster Shell Calcium-Vitamin D3) meloxicam 15 mg tablet 15 mg PO QAM 01/29/23 04/04/23 Unknown History atorvastatin 80 mg tablet 80 mg PO BEDTIME 04/04/23 04/04/23 Unknown History Exam Airway Mallampati Class: II TM Dist: >3cm Neck ROM: Full Heart: rrr Lungs: cta Other: marihuana user thrice atleast daily did not use inhaler today Assessment and Plan Assessment Anesthesia Assessment: Anesthesia Plan Discussed and Smoking Cess. Discussed Final Anesthetic Review NPO: Yes ASA Class: III Final Preanesthetic Review: No Changes in Pt Med Stat, Meds/Allgs Chart Reviewed, Consent Obtained/Reviewed and Anes Risks/Benef Reviewed Patient Risk: Intermediate Procedure Risk: Intermediate Anesthetic Plan Anesthetic Plan: GA Disposition: Standard PACU
[2023-04-08 06:28] VITALS: BMI 23.2
[2023-04-08] MEDS: Lactated Ringers 1,000 ML 100 ML IVCONT (06:39)
[2023-04-08 06:42] VITALS: BP 132/63; PULSE 73; RESP 18; TEMP 36.4; O2SAT 96
[2023-04-08 06:44] LABS: Anion Gap 13 (12-20); Blood Urea Nitrogen 12 mg/dL (9-16); Calcium 9.7 mg/dL (8.4-10.2); Carbon Dioxide 27 mmol/L (22-29); Chloride 103 mmol/L (96-108); Creatinine Clr Calc Pharmacy 58.6; Estimated Glomerular Filt Rate > 60; Glucose Random 88 mg/dL (60-115); Potassium 4.1 mmol/L (3.3-5.1); Sodium 139 mmol/L (135-145)
--- NOTE | 2023-04-08 08:49 | MHC.SHP ---
Pre-Procedural Eval Section A Date of Service: 04/08/23 The patient is an INPATIENT: No Changes since office visit: Yes Patient answered all questions The History & Physical has been completed within 30 days and I have reviewed it.: Yes Section B Chief Complaint: Varicose veins of right lower extremity with infla Allergies: Allergies Allergy/AdvReac Type Severity Reaction Status Date / Time No Known Allergies Allergy Unknown UNKNOWN Verified 03/26/23 14:51 [NO KNOWN ALLERGIES] Plan I have reviewed the history and physical and performed a pertinent physical examination on my patient. No changes have occurred unless specified. Time Spent With Patient Time: Total time managing care of this patient today ____ minutes.
--- NOTE | 2023-04-08 08:49 | W.PM.OPN ---
Operative Note Operative Note Date of Service: 04/08/23 Narrative: Operative note by [facility] Preoperative diagnosis: right leg varicose veins with inflammation Postoperative diagnosis: same Procedure: right leg microphlebectomy Surgeon:Jose Ortiz M.D. Banking Center Manager: none Anesthesia: general Specimens: 1 Drains: non Estimated blood loss: minimal Indications: very pleasant 72-year-old female presents for right leg venous treatment. She has large varicosities which have been a source of pain and discomfort. She now presents for microphlebectomy. The patient has signed the informed consent after reviewing risks, complications, benefits, and alternatives previously discussed with the patient. The patient was given the opportunity to ask any additional questions or voice any concerns. All questions were answered to the patient's satisfaction. Procedure in detail: Varicose veins were marked in the standing position on the Right leg and the patient was then placed in the supine position. The right lower extremity was prepared and draped to allow knee flexion in the sterile field. The patient had large superficial varicose veins with significant symptoms of pain. It was therefore determined to perform microphlebectomies of the clusters of varicose veins. The patient had bulging varicose veins which were previously marked in the standing position. A small stab incision was made longitudinally directly overlying the varicose vein in the calf and the varicose vein was grasped with a hemostat aided by a vein hook. It was then dissected as far proximally and distally as possible and avulsed. A total of 25 stab incisions were made and the procedure of stab phlebectomies was repeated 25 times. Hemostasis was checked and stab incision sites were closed with steri-strips and sterile dressing was given with gauze and krilex wrap followed by an maycol bandage. There were no complications and blood loss was minimal. Post-Op instructions were given and a follow-up appointment was recommended. This note is constructed using voice recognition software. While every effort has been made to ensure accuracy, gaming cage cashier errors may have been included. Thank you for allowing me to participate in the care of your patient. Yours sincerely, Jose Ortiz MD, FACS, R.P.V.I.
[2023-04-08 08:55] VITALS: BP 114/55; PULSE 97; RESP 16; TEMP 36.5; O2SAT 94
[2023-04-08 09:00] VITALS: BP 119/64; PULSE 88; RESP 17; O2SAT 94
[2023-04-08 09:05] VITALS: BP 114/62; PULSE 81; RESP 18; O2SAT 97
[2023-04-08 09:10] VITALS: BP 112/64; PULSE 80; RESP 17; O2SAT 95
== END 2023-04-08 10:40 | disposition home or self-care (01) ==
PROVIDERS: PCP Family Medicine; Visit Provider Surgery Vascular Surgery
PROC: (CPT 37766; principal; 2023-04-08 07:30)
DX: I83.11 Varicose veins of right lower extremity with inflammation (principal); J44.9 Chronic obstructive pulmonary disease, unspecified; R05.3 Chronic cough
CPT/HCPCS: 37766; 36415; 80048; 85027; 88304; J0131; J0690; J1100; J2370; J2371; J2405; J2795; J3010

== ENCOUNTER 2023-04-23 14:56 | Outpatient (AMB) | payer MEDICAID, SELFPAY ==
--- NOTE | 2023-04-23 15:00 | MHC.OFFVIS ---
Intake Intake Visit Reasons: 2wk post Right leg micro 04/08/23 Intake Note: Patient is here for a 2 week post right leg micro 04/08/23, patient has no complaints about incisions, she still has the steri strip on Cigarette And Filter Chief Inspector Required: Yes Cigarette And Filter Chief Inspector Name: Elvia CORADO Allergies No Known Allergies [NO KNOWN ALLERGIES] Allergy (Unknown, Verified 04/23/23 15:07) UNKNOWN HPI 2wk post Right leg micro 04/08/23 HPI Details Very pleasant 72-year-old female presents for follow-up status post operative right leg microphlebectomy. She reports an excellent result after that. No significant issues postop. She does have some mild bruising. Overall pain and discomfort have decreased from the varicosities. She is now for routine postprocedure follow-up. [facility] Medical History Allergies Asthma Asthma-COPD overlap syndrome Chronic cough Tubular adenoma Surgical History History of surgery on lower extremity Hx of colonoscopy Family History Daughter Stomach cancer Daughter HTN (hypertension) Daughter HTN (hypertension) Social History Patient Tobacco Use Status: Never used Tobacco Second Hand Smoke Exposure: No Current occupational status: retired and disabled Current occupation: rt hand Review of Systems Const Reports as per HPI ENT Reports no additional complaints Card Denies chest pain, Denies chest pain at rest and Denies chest pain with activity Resp Denies chest congestion and Denies cough GI Reports no additional complaints Musc Details: pain over varicosities, aching of lower extremities, swelling, cramping, heaviness and tiredness, itching Denies abnormal gait Skin/Breast Reports pruritus and Denies wounds Neuro Reports no additional complaints and Denies abnormal gait Psych Denies no additional complaints Physical Exam Const General: cooperative, healthy appearing and comfortable Orientation/consciousness: oriented to person, oriented to place and oriented to time Neck Carotids: no bruits Chest Chest palpation & inspection: normal inspection of the chest and normal palpation of entire chest wall Resp Effort & Inspection: normal respiratory effort and able to speak in complete sentences Cardio Rate: regular rate Heart sounds: S1 normal heart sound present and S2 normal heart sound present Peripheral pulses: Peripheral pulses 2+ throughout GI Inspection: Yes normal to inspection Skin Other: +2 edema, Microphlebectomy incisions healing well. Mild bruising. General skin exam: dry skin Neuro General: oriented to person, oriented to place and oriented to time Extrem Right lower extremity: full ROM, normal capillary refill and edema Left lower extremity: full ROM, normal capillary refill and edema Psych Mental Status: mental status grossly normal Assessment & Plan Assessment & Plan (1) Varicose veins of right lower extremity with inflammation: Comment: 04/08/2023 - operative right leg microphlebectomy Code(s): I83.11 - Varicose veins of right lower extremity with inflammation Plan: In short patient is doing well status post microphlebectomy. She has done well with all venous procedures. We did discuss risk some routine conservative measures including warm compresses and use of nonsteroidal anti-inflammatories should bruising or phlebitis persist. In addition we did discuss routine conservative measures regarding venous disease inclusive of compression elevation and exercise. The patient will follow up with us on an as needed basis. Thank you for allowing us to assist in this patient's care. If there are any questions or concerns please do not hesitate to contact us. Coding Level of Care Code Est Pt Level 3 (44852) Diagnoses Varicose veins of right lower extremity with inflammation I83.11
== END 2023-04-23 15:29 | disposition home or self-care (01) ==
PROVIDERS: PCP Family Medicine; Visit Provider Surgery Vascular Surgery
DX: I83.11 Varicose veins of right lower extremity with inflammation (principal)
CPT/HCPCS: 99024; 99213

== ENCOUNTER → 2023-04-23 14:56 | Outpatient (BNVA) | payer MEDICAID, SELFPAY | PROVIDERS: PCP Family Medicine; Visit Provider Surgery Vascular Surgery | DX: I83.11 Varicose veins of right lower extremity with inflammation (principal) | CPT/HCPCS: 99212 ==

== ENCOUNTER 2023-05-17 08:19 | Outpatient (REF) | payer MEDICAID, SELFPAY ==
--- NOTE | ~2023-05-17 | US_ITS ---
EXAMINATION: US ABDOMEN LIMITED CLINICAL INFORMATION: Elevation of levels of liver transaminase levels. Mild persistent transaminitis. COMPARISON: Ultrasound abdomen 07/30/2022. TECHNIQUE: Real-time imaging of the right upper quadrant abdominal viscera. FINDINGS: PANCREAS: Pancreatic tail not well visualized due to shadowing from overlying bowel gas. The well-visualized portions of the proximal pancreas are within normal limits. LIVER: The liver is normal in size. The liver contour is normal. Increased parenchymal echogenicity sparing regions adjacent to the gallbladder fossa. No focal hepatic lesion. There is no intrahepatic biliary duct dilatation seen. GALLBLADDER: The gallbladder is physiologically distended. Multiple mobile gallstones are present. No evidence of gallbladder wall thickening or pericholecystic fluid. Negative Yip's sign. COMMON BILE DUCT: Normal in caliber measuring 0.6 cm in diameter. RIGHT KIDNEY: Normal. No hydronephrosis. No renal calculi or focal parenchymal lesions. The kidney measures 10.2 cm in maximum dimension. FREE FLUID: None. US/US abdomen limited IMPRESSION: 1. Cholelithiasis but no sonographic evidence of acute cholecystitis. 2. Increased parenchymal echogenicity of the liver suggestive of hepatic steatosis or hepatocellular disease.
== END 2023-05-17 08:20 | disposition home or self-care (01) ==
LOC: HO.US 08:19
PROVIDERS: PCP Family Medicine; Visit Provider Family Medicine
DX: R74.01 Elevation of levels of liver transaminase levels (principal)
CPT/HCPCS: 76705

== ENCOUNTER 2023-06-18 07:00 | Outpatient (RCR) | payer MEDICAID, SELFPAY | END 2023-07-22 14:31 | disposition home or self-care (01) | LOC: HO.PT 07:00 | PROVIDERS: PCP Family Medicine; Visit Provider Family Medicine | DX: M54.16 Radiculopathy, lumbar region (principal) | CPT/HCPCS: 97110; 97161 ==

== ENCOUNTER 2023-08-29 15:15 | Outpatient (REF) | payer MEDICAID, SELFPAY ==
--- NOTE | ~2023-08-29 | XR_ITS ---
EXAMINATION: XR CHEST 2 VIEWS CLINICAL INFORMATION: COPD; remote history of tuberculosis. COMPARISON: Prior chest radiographs as remote as 10/26/2018. TECHNIQUE: Frontal and lateral views of the chest were obtained. FINDINGS: The heart, great vessels, pulmonary vasculature and mediastinum are normal. The lungs show no focal infiltrate, effusion or pneumothorax. Multiple benign, calcified granulomas are again seen distributed throughout the bilateral lung waldron. There is no acute osseous abnormality. There is a mild thoracolumbar dextroscoliosis. XR/XR chest 2V IMPRESSION: No active cardiopulmonary disease. Benign, calcified granulomas are redemonstrated within the lungs, consistent with the history of prior tuberculosis.
== END 2023-08-29 15:16 | disposition home or self-care (01) ==
LOC: HO.XRAY 15:15
PROVIDERS: Visit Provider Family Medicine
DX: J44.9 Chronic obstructive pulmonary disease, unspecified (principal)
CPT/HCPCS: 71046

== ENCOUNTER 2023-10-18 18:36 | Outpatient (REF) | payer MEDICAID, SELFPAY | END 2023-10-18 18:37 | disposition home or self-care (01) | LOC: HO.HHCLNP 18:36 | PROVIDERS: Visit Provider Registered Nurse | DX: R29.898 Other symptoms and signs involving the musculoskeletal system (principal) | CPT/HCPCS: 87086 ==

== ENCOUNTER 2023-10-21 05:58 | Emergency (ER) | payer MEDICAID, SELFPAY ==
--- NOTE | ~2023-10-21 | XR_ITS ---
EXAMINATION: XR LUMBOSACRAL SPINE CLINICAL INFORMATION: Low back pain COMPARISON: Lumbar spine radiographs 03/06/2023 TECHNIQUE: Three views of the lumbosacral spine. FINDINGS: Again seen is a mild scoliosis convex to the right. Mild degenerative changes are present from L2 through S1 with disc space narrowing and some endplate changes. No fractures or bony destructive lesions. Compared to the prior study from 03/06/2023, there's been no interval change. XR/XR lumbar spine 2-3V IMPRESSION: Mild degenerative changes in the lumbar spine without interval change.
[2023-10-21 06:08] VITALS: BP 146/62; PULSE 86; RESP 18; TEMP 36.6; O2SAT 98; BMI 26.1
--- NOTE | 2023-10-21 07:06 | ED.BACK ---
HPI - Back Pain/Injury General Chief Complaint: Back Pain/Injury Stated Complaint: L sided pain Time Seen by Provider: 10/21/23 06:32 Source: patient, RN notes reviewed and old records reviewed Mode of arrival: ambulatory History of Present Illness HPI Narrative: 73-year-old female with a past medical history of asthma/COPD overlap syndrome, sciatica, presenting to the ED complaining of acute on chronic left-sided low back pain radiating down left lower extremity x last night. Admits pain is similar to prior sciatica however worse preventing her from sleeping. Admits to taking anti-inflammatories and lidocaine patches without relief. Denies known fever, chills, numbness/tingling, incontinence/retention, abdominal pain, vomiting, hematuria/dysuria. MD elicited complaint: back pain Related Data Home Medications Medication Instructions Recorded Confirmed cetirizine 10 mg tablet 10 mg PO DAILY 07/18/22 10/21/23 alendronate 70 mg tablet 70 mg PO QWEEK 01/29/23 10/21/23 calcium carbonate 500 mg-vitamin 1 tab PO BID 01/29/23 10/21/23 D3 10 mcg (400 unit) tablet (Oyster Shell Calcium-Vitamin D3) meloxicam 15 mg tablet 15 mg PO QAM 01/29/23 10/21/23 atorvastatin 80 mg tablet 80 mg PO BEDTIME 04/04/23 10/21/23 fluticasone propionate 110 2 puff inhalation BID 10/21/23 10/21/23 mcg/actuation HFA aerosol inhaler (Flovent HFA) ketotifen fumarate 0.025 % (0.035 1 drp ophthalmic (eye) BID 10/21/23 10/21/23 %) eye drops (Eye Itch Relief) lidocaine 5 % topical ointment 1 appl topical DIRECTED mild 10/21/23 10/21/23 pain losartan 50 mg tablet 50 mg PO QAM 10/21/23 10/21/23 peg 350-[id number]-ldohvrmi 1 1 drp ophthalmic (eye) Q4-6H PRN 10/21/23 10/21/23 %-0.2 %-0.2 % eye drops dry eyes (Artificial Tears ([id number])) terbinafine HCl 250 mg tablet 250 mg PO QAM 10/21/23 10/21/23 Previous Rx's Medication Instructions Recorded polyethylene glycol 3350 17 17 g PO DAILY #510 grams 05/04/22 gram/dose oral powder (Miralax) albuterol sulfate 90 mcg/actuation 2 inh inhalation Q6H PRN shortness 03/08/23 aerosol inhaler of breath or wheezing 30 days #18 grams umeclidinium 62.5 mcg/actuation 1 inh inhalation DAILY 30 days #30 03/08/23 blister powder for inhalation ea (Incruse Ellipta) Allergies Allergy/AdvReac Type Severity Reaction Status Date / Time No Known Allergies Allergy Unknown UNKNOWN Verified 10/21/23 06:19 [NO KNOWN ALLERGIES] Review of Systems Review of Systems: Constitutional: No Fever, No Chills ENT/Mouth: No Ear Pain, No Nasal Congestion, No sore throat Cardiovascular: No Chest Pain, No SOB Respiratory: No Cough Gastrointestinal: No Nausea, No Vomiting, No Diarrhea, No Constipation, No Abdominal pain Genitourinary: No Dysuria, No Urinary Frequency, No Hematuria, No Urinary Incontinence/retention, No Flank Pain Musculoskeletal: + joint pain, No Myalgias, No Joint Swelling Skin: No Skin Lesions, No rash Neuro: No Weakness, No Numbness, No Paresthesias Yes all other systems are reviewed and are negative Constitutional: Constitutional: Reports as per [facility] Past Medical History Attestation statement: The following information was validated with the patient. Source: old records reviewed Onset Date is defined in the Problem List Problems that require an onset date and time if occurred within 24 hrs of arrival to the ED Aortic Dissection and Rupture; Neurologic impairment; Cardiopulmonary Arrest; Endotracheal Intubation; Insertion or Replacement of Mechanical Circulatory Assist Device Medical History Tubular adenoma Allergies Asthma-COPD overlap syndrome Chronic cough Asthma Surgical History Hx of colonoscopy History of surgery on lower extremity Family History Family History Daughter Stomach cancer Daughter HTN (hypertension) Daughter HTN (hypertension) Social History Social History Patient Tobacco Use Status: Never used Tobacco Smoked in Last 30 Days: No Second Hand Smoke Exposure: No Use of substances other than those prescribed or required for medical reasons: No Advance Directives: Yes Advance Directives Information Provided: Yes Advance Directives on File: No Current occupational status: retired and disabled Current occupation: rt hand Physical Exam Vital Signs: Vital Signs: Last Vital Signs Temp 98.5 F 10/21/23 15:00 Pulse 67 10/21/23 15:00 Resp 18 10/21/23 15:00 BP 117/49 L 10/21/23 15:00 Pulse Ox 96 10/21/23 15:00 O2 Del Method Room Air 10/21/23 15:00 BMI result Body Mass Index 26.1 Const: General: cooperative, healthy appearing and no acute distress Orientation/consciousness: patient oriented x3 Limitations: no limitations HEENT: Head: Yes normal to inspection and Yes atraumatic Ears: hearing grossly normal bilaterally General nose exam: Normal external nose present Face and sinus: Yes normal facial exam Eyes: General: appearance normal, both eyes and all related structures EOM: EOMs intact bilaterally Neck: Neck: Yes normal visual inspection and Yes no meningeal signs Resp: Effort & Inspection: normal respiratory effort and no respiratory distress Auscultation: clear to auscultation bilaterally Cardio: Rate: regular rate Heart sounds: S1 normal heart sound present and S2 normal heart sound present GI: Inspection: Yes normal to inspection Palpation (GI): Soft to palpation, nontender, no guarding and not rigid : General: Yes no CVA tenderness Back/Spine/Pelvis: Other: No midline cervical/thoracic/lumbar spinous tenderness/step-off or deformity. + left-sided lower lumbar MSK reproducible tenderness palpation, no rash/erythema or ecchymosis. Back: no CVA tenderness Skin: Rashes: no rashes Wounds: no wounds Neuro: Other: Strength intact throughout. No saddle anesthesia. Sensation intact to light touch. Neurovascular intact distally General: patient oriented x3, tone normal, moves all extremities and no meningeal signs Cranial nerves: Yes CN's II-XII intact bilaterally Gait exam (Neuro): Antalgic gait present Motor exam (neuro): 5/5 motor strength present throughout Extrem: General: Yes normal to inspection Course Course Course Narrative: -patient with minimal symptomatic improvement after Toradol, cyclobenzaprine, and Lidoderm patch > although patient was able to ambulate/transfer from commode to bed without assistance -will try p.o. tramadol and obtain x-ray. Plan will likely be PT/case management. Patient lives with daughter however daughter works all day, is mostly home alone XR lumbar spine 2-3V IMPRESSION: Mild degenerative changes in the lumbar spine without interval change. > PT evaluated patient recommended short-term rehab. Pending case management eval. Physician observation initiated at 12:32 -physical therapy is recommending rehab, however, patient is not an [place] citizen & only has [employer] family assistance insurance who does not cover rehab. Patient and daughter are aware and agreeable to going home with VNA Results discussed with patient including worrisome signs and symptoms and strict return precautions, and when to return to the emergency department. They verbalized understanding and feel safe for discharge at this time. Medications Administered Discontinued Medications Generic Name Dose Route Start Last Admin Trade Name Freq PRN Reason Stop Dose Admin Acetaminophen 975 mg 10/21/23 12:32 10/21/23 13:03 Acetaminophen 325 Mg Tablet PO 10/21/23 12:33 975 mg ONCE ONE Administration Cyclobenzaprine HCl 10 mg 10/21/23 07:01 10/21/23 07:23 Cyclobenzaprine Hcl 10 Mg Tablet PO 10/21/23 07:02 10 mg ONCE ONE Administration Ketorolac Tromethamine 30 mg 10/21/23 07:01 10/21/23 07:23 Ketorolac Tromethamine 30 Mg/Ml Vial IM 10/21/23 07:02 30 mg ONCE ONE Administration Lidocaine 1 patch 10/21/23 07:01 10/21/23 07:22 Lidocaine 4 % Patch Adh..Patch TRANSDERMA 10/21/23 07:02 1 patch ONCE ONE Administration Protocol Oxycodone HCl 5 mg 10/21/23 14:36 10/21/23 14:58 Oxycodone Hcl Immed Release 5 Mg Tablet PO 10/21/23 14:37 5 mg ONCE ONE Administration Tramadol HCl 50 mg 10/21/23 08:49 10/21/23 09:16 Tramadol Hcl 50 Mg Tablet PO 10/21/23 08:50 50 mg ONCE ONE Administration Medical Decision Making Medical Decision Making MDM Narrative: 73-year-old female with a past medical history of asthma/COPD overlap syndrome, sciatica, presenting to the ED complaining of acute on chronic left-sided low back pain radiating down left lower extremity x last night. On exam vital signs stable, NAD, nontoxic appearing, no midline spinous tenderness throughout. Reproducible left-sided MSK tenderness, no red flag symptoms, ambulating with antalgic gait. Concern for sciatica vs muscle spasm/strain vs herniated disc. Low suspicion for cauda equina/cord compression, epidural abscess, renal stones/pyelo, UTI or diverticulitis Plan: Pain control, re-evaluate Please refer to course for remaining clinical decision making, interpretation of labs/imaging results, and discussions with consultants and/or family members. Differential Diagnosis Differential Diagnoses: The differential diagnosis associated with the presentation includes As above Lab Data Labs: Lab Results 10/21/23 Range/Units 10:10 COVID-19 (DARLEEN) Negative (Negative) COVID-19 Clin Com See Note Radiology Impression Discussion of test interpretation with radiology: I have reviewed the radiologist's reading. Independent Historian Clinical information obtained from an independent historian. History obtained from or confirmed by: Other (daughter) External Record Review External record reviewed: Inpatient record, Office record, Outpatient record, Prior outpatient labs, Prior outpatient radiology, Primary care record and Outside ED record Tests considered The following testing was considered but not selected: As above Prescription Management I considered prescription management with: Pain Medication Chronic Conditions Patient?s care impacted by: Other (asthma/COPD) Discharge Plan Discharge Clinical Impression: Lumbar radiculopathy Patient Disposition: Still a Patient Prescriptions: No Action atorvastatin 80 mg tablet 80 mg PO BEDTIME losartan 50 mg tablet 50 mg PO QAM terbinafine HCl 250 mg tablet 250 mg PO QAM fluticasone propionate [Flovent HFA] 110 mcg/actuation HFA aerosol inhaler 2 puff inhalation BID Artificial Tears(ba-oxhc-nows) 1-0.2-0.2 % drops 1 drp ophthalmic (eye) Q4-6H PRN (Reason: dry eyes) lidocaine 5 % ointment 1 appl topical DIRECTED ketotifen fumarate [Eye Itch Relief] 0.025 % (0.035 %) drops 1 drp ophthalmic (eye) BID polyethylene glycol 3350 [Miralax] 17 gram/dose powder 17 g PO DAILY Qty: 510 2RF cetirizine 10 mg tablet 10 mg PO DAILY albuterol sulfate 90 mcg/actuation HFA aerosol inhaler 2 inh inhalation Q6H PRN (Reason: shortness of breath or wheezing) 30 Days Qty: 18 12RF Incruse Ellipta 62.5 mcg/actuation blister with device 1 inh inhalation DAILY 30 Days Qty: 30 11RF calcium carbonate-vitamin D3 [Oyster Shell Calcium-Vit D3] 500 mg-10 mcg (400 unit) tablet 1 tab PO BID alendronate 70 mg tablet 70 mg PO QWEEK meloxicam 15 mg tablet 15 mg PO QAM
[2023-10-21] MEDS: Lidocaine 4 % Patch ADH..PATCH 1 PATCH TRANSDERMA (07:22)
[2023-10-21] MEDS: Ketorolac Tromethamine 30 MG/ML VIAL IM (07:23)
[2023-10-21] MEDS: Cyclobenzaprine HCl 10 MG TABLET PO (07:23)
--- NOTE | 2023-10-21 07:26 | PC.NURSE ---
Alert and oriented, reports left sided sciatica pain, medicated per mar, daughter at bedside
[2023-10-21] MEDS: traMADoL HCL 50 MG TABLET PO (09:16)
--- NOTE | 2023-10-21 09:17 | PC.NURSE ---
Able to stand pivot transfer to bedside commode, reports pain on left side lower back is 8/10, medicated per mar
[2023-10-21 09:33] VITALS: BP 160/61; PULSE 74; RESP 20; O2SAT 98
[2023-10-21 10:49] LABS: COVID-19 Test Negative (Negative); IDNOW Serial# 08D9AD1C
[2023-10-21 12:07] VITALS: BP 160/61; PULSE 74; O2SAT 98
--- NOTE | 2023-10-21 12:39 | PHA.MEDREC ---
Pharmacy Consult ? Medication Reconciliation Pharmacy has completed the medication reconciliation. Used patients list from [facility]. Encounter date on paperwork was 10/18/23
[2023-10-21] MEDS: Acetaminophen 325 MG TABLET 975 MG PO (13:03)
--- NOTE | 2023-10-21 14:49 | MHC.CM.ED ---
Received case management consult from Daniela FOX. Patient came to the ER due to back pain. Work up essentially negative. Physical therapy eval completed. Short term rehab is recommended. Met with patient, daughter Angeles and microchip specialist. Patient lives with daughter, ambulates with a cane and had no services prior to coming to the hospital. PCP verified. Patient is from [facility] and is not an [place] citizen. Patient has [employer]. This insurance does not cover snf facilities. Patient and daughter do not have the money to privately pay for snf facility. Agreeable to VNA at home if it is covered by patient's insurance. If not covered, [facility] will be asked to arrange outpatient physical therapy. Both are agreeable. Referral made to Marlena HERNANDEZ at this time. Waiting to hear back. Patient is still reporting pain. Patient and daughter have asked to speak to Daniela FOX. Daniela FOX aware. Continue to monitor for d/c needs.
[2023-10-21] MEDS: oxyCODONE HCl Immed Release 5 MG TABLET PO (14:58)
[2023-10-21 15:00] VITALS: BP 117/49; PULSE 67; RESP 18; TEMP 36.9; O2SAT 96
== END 2023-10-21 16:30 | disposition home or self-care (01) ==
PROVIDERS: Physician Assistant; Emergency Provider Emergency Medicine; PCP Family Medicine
DX: M54.16 Radiculopathy, lumbar region (principal); Z11.52 Encounter for screening for COVID-19; M54.50 Low back pain, unspecified
CPT/HCPCS: 72100; 87635; 96372; 97162; 99284; J1885

== ENCOUNTER 2023-12-18 09:21 | Outpatient (REF) | payer MEDICAID, SELFPAY ==
--- NOTE | ~2023-12-18 | XR_ITS ---
EXAMINATION: XR HIP, LEFT CLINICAL INFORMATION: Evaluate DJD, back pain lumbar spine radiographs of 10/21/2023. AP pelvis and bilateral hips of 03/06/2023. COMPARISON: None available. TECHNIQUE: Two views of the left hip. FINDINGS: Degenerative changes in the imaged lower lumbar spine and left sacroiliac joint. Mild degenerative changes in the left hip with joint space narrowing and hypertrophic change. Left hip alignment is preserved. The bones are diffusely demineralized. XR/XR hip LT min 2V IMPRESSION: 1. Mild degenerative changes in the left hip. 2. Degenerative changes in the imaged lower lumbar spine and left sacroiliac joint.
== END 2023-12-18 09:22 | disposition home or self-care (01) ==
LOC: HO.HOSX 09:21
PROVIDERS: PCP Family Medicine; Visit Provider Physical Medicine & Rehabilitation
DX: M54.42 Lumbago with sciatica, left side (principal); G89.29 Other chronic pain; M54.16 Radiculopathy, lumbar region; M25.552 Pain in left hip; M53.3 Sacrococcygeal disorders, not elsewhere classified
CPT/HCPCS: 73502; 99202

== ENCOUNTER 2023-12-18 09:21 | Outpatient (AMB) | payer MEDICAID, SELFPAY ==
--- NOTE | 2023-12-18 09:22 | MHC.OFFVIS ---
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 Patient reports ongoing pain for a couple months. She states that going to [facility] is giving her relief, however they stopped the services due to not being sure what they can do for her. Patient is taking Tylenol for her pain which is giving her relief. Vp Compliance Required: Yes Allergies No Known Allergies [NO KNOWN ALLERGIES] Allergy (Unknown, Verified 12/18/23 09:27) UNKNOWN Medication List - Last Reconciled 12/18/23 by Lorene Olsen MD acetaminophen (Tylenol Extra Strength) 500 mg PO Q6H PRN albuterol sulfate 90 mcg/actuation 2 inhalations inhalation Q6H PRN 30 days alendronate 70 mg PO QWEEK atorvastatin 80 mg PO BEDTIME calcium carbonate-vitamin D3 500 mg-10 mcg (400 unit) (Oyster Shell Calcium-Vitamin D3) 1 tab PO BID cetirizine 10 mg PO DAILY fluticasone propionate 110 mcg/actuation (Flovent HFA) 2 puffs inhalation BID ketotifen fumarate 0.025%(0.035%) (Eye Itch Relief) 1 drp ophthalmic (eye) BID lidocaine 5% 1 appl topical DIRECTED lidocaine 5% (Lidoderm) 1 patch topical DAILY PRN MDD remove after 12 hours losartan 50 mg PO QAM meloxicam 15 mg PO QAM peg 503-[id number]-kstcrwtu 1-0.2-0.2 % (Artificial Tears ([id number])) 1 drp ophthalmic (eye) Q4-6H PRN polyethylene glycol 3350 (Miralax) 17 grams PO DAILY terbinafine HCl 250 mg PO QAM tramadol 50 mg PO Q8H PRN umeclidinium 62.5 mcg/actuation (Incruse Ellipta) 1 inh inhalation DAILY 30 days HPI HPI Comments History of Present Illness Details Previously following with pain management. This was for knee pain, hip pain, back pain. Last seen January 2023, MRI lumbar spine ordered, several attempts to call patient without success. MRI order was canceled. Recent ER visit 10/21/2023 for acute on chronic left-sided back pain. Same back pain since last year. Pain continued despite PT. PT brought only minima relief. Brought to ER 10/21/23 because of increased pain on the hips. Lower back pain, going to left knee and ankle. Denies numbness on left leg and foot. Pain is worse on bone of hip when she sits down. Can't put a lot of weight on left when she stands up, thinks maybe a nerve because it can be on different places on left leg. Left groin pain especially with abduction/external rotation. Here with daughter. Seen with educational interpreter. Uses walker for ambulation. PT on hold until further/clearer diagnosis given. [facility] Medical History (Updated 12/18/23 @ 13:34 by Lorene Olsen MD) Left lumbar radiculitis Chronic back pain Tubular adenoma Allergies Asthma-COPD overlap syndrome Chronic cough Asthma Surgical History Hx of colonoscopy History of surgery on lower extremity Family History Daughter Stomach cancer Daughter HTN (hypertension) Daughter HTN (hypertension) Social History Patient Tobacco Use Status: Never used Tobacco Second Hand Smoke Exposure: No Current occupational status: retired and disabled Current occupation: rt hand Review of Systems Const All systems reviewed & are unremarkable except as noted in HPI and below Physical Exam Constitutional: Patient appears to be in no acute distress, well nourished and well developed. Patient was appropriately conversant and oriented. Good historian. MSK: No specific abnormalities found on inspection of the spine and all extremities. Left more than right SI joint tenderness. No tenderness in paraspinals. No trochanteric tenderness. Lumbar ROM was full. Bilateral hip, knee and ankle ROM WNL. No ligamentous laxity or crepitance. No increased effusion. Straight-leg raising test negative. FABERE test left positive. Strength is 5/5 in all muscle groups tested. No increased tone noted. Neurological: Neurologic examination of the upper and lower extremities was nonfocal with intact sensation, muscle stretch reflexes and without focal motor deficits . Siddiqui?s negative bilaterally. Babinski was down going bilaterally. Clonus was negative. Gait is non-antalgic without loss of balance, but slow. Results Reviewed Results Reviewed: Ordering Physician: Daniela Huggins Date of Service: 10/21/23 Procedure(s): XR lumbar spine 2-3V Accession Number(s): [id number] cc: Daniela Huggins; China Lemon MD~ EXAMINATION: XR LUMBOSACRAL SPINE CLINICAL INFORMATION: Low back pain COMPARISON: Lumbar spine radiographs 03/06/2023 TECHNIQUE: Three views of the lumbosacral spine. FINDINGS: Again seen is a mild scoliosis convex to the right. Mild degenerative changes are present from L2 through S1 with disc space narrowing and some endplate changes. No fractures or bony destructive lesions. Compared to the prior study from 03/06/2023, there's been no interval change. XR/XR lumbar spine 2-3V IMPRESSION: Mild degenerative changes in the lumbar spine without interval change. Ordering Physician: Rosa Reynolds Date of Service: 03/06/23 Procedure(s): XR hip BI w PEL1V Accession Number(s): [id number] cc: Rosa Reynolds~ EXAMINATION: XR BILATERAL HIPS WITH AP PELVIS CLINICAL INFORMATION: Pain in right hip Pain COMPARISON: None available. TECHNIQUE: AP view of the pelvis and single views of each hip were obtained. FINDINGS: The bones are intact. No fracture. Sacroiliac and hip joints are normal. Moderate degenerative change of the pubic symphysis. Degenerative changes are seen in the lower lumbar spine. Small calcifications in the left side of the pelvis likely represents phleboliths XR/XR hip BI w PEL1V IMPRESSION: 1. No significant abnormality of the hips. 2. Degenerative changes of the pubic symphysis. I reviewed records from the following: Pain management ER Assessment & Plan Assessment & Plan (1) Chronic back pain: Code(s): M54.9 - Dorsalgia, unspecified; G89.29 - Other chronic pain Qualifiers: Back pain location: low back pain Back pain laterality: left Sciatica presence: with sciatica Sciatica laterality: sciatica of left side Qualified Code(s): M54.42 - Lumbago with sciatica, left side; G89.29 - Other chronic pain (2) Left lumbar radiculitis: Code(s): M54.16 - Radiculopathy, lumbar region (3) Sacroiliac joint dysfunction of left side: Code(s): M53.3 - Sacrococcygeal disorders, not elsewhere classified (4) Left hip pain: Code(s): M25.552 - Pain in left hip Plan Chronic lower back pain, with left-sided radiculitis symptoms versus SI joint dysfunction. Patient had undergone adequate conservative management including [PT] without improvement of condition. It would be reasonable to obtain further imaging such as MRI. An MRI would help rule out any serious condition, guide treatment and assess prognosis for recovery. Specifically ruling out left L3/L4 nerve compression. Since patient complaining of left hip and groin pain, we will send her for left hip x-rays today. Consideration for injection, lumbar epidural versus SI joint, depending on MRI results. Assessment and plan discussed with patient, and patient was agreeable. All questions were answered thoroughly. Lorene Olsen MD, TETO Board Certified, [place] Board [employer] and Rehabilitation (ABPMR) Board Certified, [place] Board [employer] Electrodiagnostic [employer] (ABEM) Orders: Orders XR hip LT min 2V Today G89.29 - Other chronic pain, M25.552 - Pain in left hip, M54.16 - Radiculopathy, lumbar region, M54.9 - Dorsalgia, unspecified MR lumbar spine wo con Today G89.29 - Other chronic pain, M25.552 - Pain in left hip, M54.16 - Radiculopathy, lumbar region, M54.9 - Dorsalgia, unspecified Coding Level of Care Code New Pt Level 4 (83126) Diagnoses Chronic left-sided low back pain with left-sided sciatica M54.42; G89.29 Back pain location: low back pain Back pain laterality: left Sciatica presence: with sciatica Sciatica laterality: sciatica of left side Left lumbar radiculitis M54.16 Sacroiliac joint dysfunction of left side M53.3 Left hip pain M25.552
== END 2023-12-18 10:24 | disposition home or self-care (01) ==
PROVIDERS: PCP Family Medicine; Visit Provider Physical Medicine & Rehabilitation
DX: M54.42 Lumbago with sciatica, left side (principal); G89.29 Other chronic pain; M54.16 Radiculopathy, lumbar region; M53.3 Sacrococcygeal disorders, not elsewhere classified; M25.552 Pain in left hip
CPT/HCPCS: 99204

== ENCOUNTER 2023-12-23 09:25 | Outpatient (REF) | payer MEDICAID, SELFPAY ==
--- NOTE | ~2023-12-23 | MM_ITS ---
EXAMINATION: MM DIAGNOSTIC DIGITAL BREAST TOMOSYNTHESIS, BILATERAL CLINICAL INFORMATION: 73-year-old female, initially presented for screening bilateral mammography, voiced no complaints, and then subsequently one day later at the [facility], the patient complained of bilateral breast pain and [facility] provider felt palpable masses in both breasts, of which the right breast at 6:00 was a 3 x 2 cm palpable mass, and the left breast at 3:00 was a 2.2 x 1.3 cm mass. The patient's daughter could not bring the patient back until February 03 (today) for a diagnostic ultrasound, and the screening mammogram was converted to a bilateral diagnostic mammogram. At this time, the patient now denies pain, and denies any palpable abnormalities. COMPARISON: Mammography: 12/18/2022, 11/21/2021 (new baseline). TECHNIQUE: Digital breast tomosynthesis is performed in both the craniocaudal and mediolateral oblique views along with computer-aided detection (CAD). Synthesized 2D images are generated from the tomosynthesis. FINDINGS: There are scattered areas of fibroglandular density (ACR BI-RADS breast composition Category b). There are bilateral vascular and secretory calcifications identified scattered in both breasts, benign. There are no masses, areas of architectural distortion, or suspicious grouped calcifications. The parenchymal pattern is unchanged from prior exams. There is no skin or axillary abnormality. There are no mammographic abnormalities in the right breast at 6:00, or the left breast at 3:00 to explain the transient palpable foci. We will evaluate these regions with ultrasound. MM/MM tomosynthesis diagnostic BI IMPRESSION: -There are no findings suspicious for malignancy in either breast. -There are stable benign findings. -There is no mammographic abnormality or correlate to the transient foci of palpable concern in both breasts. Recommend targeted bilateral breast ultrasound for further evaluation. ASSESSMENT: BI-RADS BI-RADS 0 - Incomplete: Needs additional Imaging. RECOMMENDATION: Additional Imaging required
== END 2023-12-23 09:26 | disposition home or self-care (01) ==
LOC: HO.MAMMO 09:25
PROVIDERS: PCP Family Medicine; Visit Provider Family Medicine
DX: N64.4 Mastodynia (principal)
CPT/HCPCS: 77062; 77063; 77066; 77067

== ENCOUNTER → 2023-12-23 10:00 | Outpatient (BNV) | payer MEDICAID, SELFPAY | PROVIDERS: PCP Family Medicine; Visit Provider Radiology Diagnostic Radiology | DX: N64.4 Mastodynia (principal) | CPT/HCPCS: 77062; 77066 ==

== ENCOUNTER 2024-01-14 17:01 | Outpatient (REF) | payer MEDICAID, SELFPAY ==
--- NOTE | ~2024-01-14 | MR_ITS ---
MR LUMBAR SPINE WITHOUT CONTRAST CLINICAL INFORMATION: Dorsalgia. Evaluate for left L5 or L4 disc herniation. COMPARISON: Lumbar spine radiographs 03/16/2023. TECHNIQUE: MRI of the lumbar spine was obtained using routine sequences without contrast. FINDINGS: There are 5 nonrib-bearing lumbar-type vertebral bodies. There is a rightward convex scoliotic curvature at the thoracolumbar junction. Lumbar alignment is otherwise maintained. The vertebral body heights are preserved. There is mild disc volume loss at L2-L3, L3-L4, and L4-L5. Disc desiccation at all lumbar levels the exception of L1-L2. There is no bone marrow edema. There are no acute fractures. There are multilevel endplate osteophytes. Conus terminates at the L1 level. There are no significant extraspinal soft tissue findings. L1-L2: There is a diffuse annular disc bulge. There is no central canal stenosis and there is no foraminal stenosis. L2-L3: There is grade 1 retrolisthesis. A left paracentral disc protrusion results in mass effect on the traversing left L3 nerve root within the left subarticular zone. No central canal stenosis. Mild left-sided foraminal encroachment. L3-L4: There is a diffuse annular disc bulge and there is moderate bilateral facet arthropathy and ligamentum flavum thickening. Findings in concert result in moderate central canal stenosis, left greater than right subarticular zone stenosis with compression of the traversing left greater then right L4 nerve roots, and mild bilateral foraminal encroachment. L4-L5: Diffuse annular disc bulge with a superimposed right paracentral disc protrusion and severe bilateral facet arthropathy and ligamentum flavum thickening. Findings in concert result in severe central canal stenosis, significant effacement of the subarticular zones with compression of the traversing nerve roots bilaterally, and moderate right-sided foraminal stenosis with right lateral disc osteophyte contacting the extraforaminal right L4 nerve root. L5-S1: Right greater than left lateral disc osteophyte protrusions resulting in mass effect on the extraforaminal right L5 nerve root and contacting the extraforaminal left L5 nerve root. Moderate bilateral facet arthropathy and bilateral facet joint effusions. Mild central canal stenosis. No foraminal stenosis. MR/MR lumbar spine wo con IMPRESSION: - At L5-S1, there are right greater than left lateral disc osteophyte protrusions resulting in mass effect on the extraforaminal right L5 nerve root and contacting the extraforaminal left L5 nerve root. - At L4-L5, advanced multifactorial degenerative changes including a right paracentral disc protrusion result in severe central canal stenosis, significant effacement of the subarticular zones with compression of the traversing nerve roots bilaterally, and moderate right-sided foraminal stenosis with right lateral disc osteophyte contacting the extraforaminal right L4 nerve root. - At L3-L4, multifactorial degenerative changes result in moderate central canal stenosis, left greater than right subarticular zone stenosis with compression of the traversing left greater then right L4 nerve roots, and mild bilateral foraminal encroachment. - At L2-L3, a left paracentral disc protrusion results in mass effect on the traversing left L3 nerve root within the left subarticular zone.
== END 2024-01-14 17:02 | disposition home or self-care (01) ==
LOC: HO.MRI 17:01
PROVIDERS: PCP Family Medicine; Visit Provider Physical Medicine & Rehabilitation
DX: M54.9 Dorsalgia, unspecified (principal); G89.29 Other chronic pain; M25.552 Pain in left hip; M54.16 Radiculopathy, lumbar region
CPT/HCPCS: 72148

== ENCOUNTER 2024-02-04 14:06 | Outpatient (REF) | payer MEDICAID, SELFPAY ==
--- NOTE | ~2024-02-04 | US_ITS ---
EXAMINATION: US DIAGNOSTIC ULTRASOUND BREAST, BILATERAL CLINICAL INFORMATION: 73-year-old female, initially presented for screening bilateral mammography, voiced no complaints, and then subsequently one day later at the [facility], the patient complained of bilateral breast pain and the patient's provider felt palpable masses in both breasts; in the right breast at 6:00 was a 3 x 2 cm palpable mass, and in the left breast at 3:00 was a 2.2 x 1.3 cm palpable mass. The patient's daughter could not bring the patient back until February 03 (today) for a diagnostic ultrasound. At this time, the patient now denies pain, and denies any palpable abnormalities. COMPARISON: Bilateral diagnostic mammography 12/23/2023, 12/18/2022, 11/21/2021 (new baseline). TECHNIQUE: Ultrasound of the both breasts was performed with real-time bustillos scale imaging and color Doppler. The right breast was scanned from the 4:00 to 8:00 axis to include the 6:00 axis, 3 x 2 cm palpable mass. The left breast was scanned from the 1:00 to 5:00 axis, to include the 3:00, 2.2 x 1.3 cm palpable mass. FINDINGS: There is no focal suspicious finding. There is no solid mass, architectural abnormality, duct ectasia, or edema in the soft tissue planes. There are no cystic abnormalities. There are no sonographic correlates to the bilateral foci of palpable concern. US/US breast BI limited mamm only IMPRESSION: -No findings suspicious for malignancy in either breast. -There are stable benign findings in both breasts on mammography. There are no abnormal findings on sonography. -No mammographic or ultrasonographic correlates to the bilateral palpable foci of concern or pain. Recommend clinical management. -Otherwise, recommend the patient return to routine annual mammographic screening. ASSESSMENT: BI-RADS 2: Benign RECOMMENDATION: 1. Patient should be managed based on the clinical impression. Decision to proceed with biopsy should be based on clinical grounds and degree of clinical concern. 2. Otherwise, routine annual screening mammography. This patient's information was entered into a reminder system with a target due date for their next mammogram.
== END 2024-02-04 14:07 | disposition home or self-care (01) ==
LOC: HO.MAMMO 14:06
PROVIDERS: PCP Family Medicine; Visit Provider Family Medicine
DX: N64.4 Mastodynia (principal)
CPT/HCPCS: 76642

== ENCOUNTER → 2024-02-04 14:30 | Outpatient (BNV) | payer MEDICAID, SELFPAY | PROVIDERS: PCP Family Medicine; Visit Provider Radiology Diagnostic Radiology | DX: N64.4 Mastodynia (principal) | CPT/HCPCS: 76642 ==

== ENCOUNTER 2024-02-27 11:42 | Outpatient (AMB) | payer MEDICAID, SELFPAY ==
--- NOTE | 2024-02-27 12:12 | A.OFFVIS_ITS ---
Intake Visit Reasons: ov- discuss MRI results lumbar Intake Note: Jennifer is a 73 year old Chinese speaking patient who presents today for a MRI review of her lumbar spine. Department [employer] Required: Yes Allergies No Known Allergies [NO KNOWN ALLERGIES] Allergy (Unknown, Verified 12/18/23 09:27) UNKNOWN HPI Comments Details: Previously following with pain management. This was for knee pain, hip pain, back pain. Last seen January 2023, MRI lumbar spine ordered, several attempts to call patient without success. MRI order was canceled. Recent ER visit 10/21/2023 for acute on chronic left-sided back pain. Same back pain since last year. Pain continued despite PT. PT brought only minima relief. Brought to ER 10/21/23 because of increased pain on the hips. Lower back pain, going to left knee and ankle. Denies numbness on left leg and foot. Pain is worse on bone of hip when she sits down. Can't put a lot of weight on left when she stands up, thinks maybe a nerve because it can be on different places on left leg. Left groin pain especially with abduction/external rotation. Here with daughter. Seen with embedded developer. Uses walker for ambulation. PT on hold until further/clearer diagnosis given. Here to discuss MRI results. Reports no change in her back pain. [facility] Medical History (Updated 02/27/24 @ 12:29 by Lorene Olsen MD) Lumbar disc herniation with radiculopathy Lumbar spinal stenosis Left lumbar radiculitis Chronic back pain Tubular adenoma Allergies Asthma-COPD overlap syndrome Chronic cough Asthma Surgical History Hx of colonoscopy History of surgery on lower extremity Family History Daughter Stomach cancer Daughter HTN (hypertension) Daughter HTN (hypertension) Social History Patient Tobacco Use Status: Never used Tobacco Second Hand Smoke Exposure: No Current occupational status: retired and disabled Current occupation: rt hand Physical Exam Constitutional: Patient appears to be in no acute distress, well nourished and well developed. Patient was appropriately conversant and oriented. Good historian. MSK: No specific abnormalities found on inspection of the spine and all extremities. Left more than right SI joint tenderness. No tenderness in paraspinals. No trochanteric tenderness. Lumbar ROM was full. Bilateral hip, knee and ankle ROM WNL. No ligamentous laxity or crepitance. No increased effusion. Straight-leg raising test negative. FABERE test left positive. Strength is 5/5 in all muscle groups tested. No increased tone noted. Neurological: Depressed left knee reflex as compared to right. 5/5 strength when seated. Needed assistance to get on the bed. Siddiqui?s negative bilaterally. Babinski was down going bilaterally. Clonus was negative. Gait is non-antalgic without loss of balance, but slow. Uses cane. Results Reviewed Results Reviewed: Ordering Physician: Lorene Cid Date of Service: 01/14/24 Procedure(s): MR lumbar spine wo con Accession Number(s): [id number] cc: Lorene Cid; China Lemon MD~ MR LUMBAR SPINE WITHOUT CONTRAST CLINICAL INFORMATION: Dorsalgia. Evaluate for left L5 or L4 disc herniation. COMPARISON: Lumbar spine radiographs 03/16/2023. TECHNIQUE: MRI of the lumbar spine was obtained using routine sequences without contrast. FINDINGS: There are 5 nonrib-bearing lumbar-type vertebral bodies. There is a rightward convex scoliotic curvature at the thoracolumbar junction. Lumbar alignment is otherwise maintained. The vertebral body heights are preserved. There is mild disc volume loss at L2-L3, L3-L4, and L4-L5. Disc desiccation at all lumbar levels the exception of L1-L2. There is no bone marrow edema. There are no acute fractures. There are multilevel endplate osteophytes. Conus terminates at the L1 level. There are no significant extraspinal soft tissue findings. L1-L2: There is a diffuse annular disc bulge. There is no central canal stenosis and there is no foraminal stenosis. L2-L3: There is grade 1 retrolisthesis. A left paracentral disc protrusion results in mass effect on the traversing left L3 nerve root within the left subarticular zone. No central canal stenosis. Mild left-sided foraminal encroachment. L3-L4: There is a diffuse annular disc bulge and there is moderate bilateral facet arthropathy and ligamentum flavum thickening. Findings in concert result in moderate central canal stenosis, left greater than right subarticular zone stenosis with compression of the traversing left greater then right L4 nerve roots, and mild bilateral foraminal encroachment. L4-L5: Diffuse annular disc bulge with a superimposed right paracentral disc protrusion and severe bilateral facet arthropathy and ligamentum flavum thickening. Findings in concert result in severe central canal stenosis, significant effacement of the subarticular zones with compression of the traversing nerve roots bilaterally, and moderate right-sided foraminal stenosis with right lateral disc osteophyte contacting the extraforaminal right L4 nerve root. L5-S1: Right greater than left lateral disc osteophyte protrusions resulting in mass effect on the extraforaminal right L5 nerve root and contacting the extraforaminal left L5 nerve root. Moderate bilateral facet arthropathy and bilateral facet joint effusions. Mild central canal stenosis. No foraminal stenosis. MR/MR lumbar spine wo con IMPRESSION: - At L5-S1, there are right greater than left lateral disc osteophyte protrusions resulting in mass effect on the extraforaminal right L5 nerve root and contacting the extraforaminal left L5 nerve root. - At L4-L5, advanced multifactorial degenerative changes including a right paracentral disc protrusion result in severe central canal stenosis, significant effacement of the subarticular zones with compression of the traversing nerve roots bilaterally, and moderate right-sided foraminal stenosis with right lateral disc osteophyte contacting the extraforaminal right L4 nerve root. - At L3-L4, multifactorial degenerative changes result in moderate central canal stenosis, left greater than right subarticular zone stenosis with compression of the traversing left greater then right L4 nerve roots, and mild bilateral foraminal encroachment. - At L2-L3, a left paracentral disc protrusion results in mass effect on the traversing left L3 nerve root within the left subarticular zone. Ordering Physician: Daniela Huggins Date of Service: 10/21/23 Procedure(s): XR lumbar spine 2-3V Accession Number(s): [id number] cc: Daniela Huggins; China Lemon MD~ EXAMINATION: XR LUMBOSACRAL SPINE CLINICAL INFORMATION: Low back pain COMPARISON: Lumbar spine radiographs 03/06/2023 TECHNIQUE: Three views of the lumbosacral spine. FINDINGS: Again seen is a mild scoliosis convex to the right. Mild degenerative changes are present from L2 through S1 with disc space narrowing and some endplate changes. No fractures or bony destructive lesions. Compared to the prior study from 03/06/2023, there's been no interval change. XR/XR lumbar spine 2-3V IMPRESSION: Mild degenerative changes in the lumbar spine without interval change. Ordering Physician: Rosa Reynolds Date of Service: 03/06/23 Procedure(s): XR hip BI w PEL1V Accession Number(s): [id number] cc: Rosa Reynolds~ EXAMINATION: XR BILATERAL HIPS WITH AP PELVIS CLINICAL INFORMATION: Pain in right hip Pain COMPARISON: None available. TECHNIQUE: AP view of the pelvis and single views of each hip were obtained. FINDINGS: The bones are intact. No fracture. Sacroiliac and hip joints are normal. Moderate degenerative change of the pubic symphysis. Degenerative changes are seen in the lower lumbar spine. Small calcifications in the left side of the pelvis likely represents phleboliths XR/XR hip BI w PEL1V IMPRESSION: 1. No significant abnormality of the hips. 2. Degenerative changes of the pubic symphysis. I reviewed records from the following: Pain management ER Assessment & Plan Assessment & Plan (1) Lumbar spinal stenosis: Code(s): M48.061 - Spinal stenosis, lumbar region without neurogenic claudication Category: Medical Qualifiers: Neurogenic claudication status: with neurogenic claudication Qualified Code(s): M48.062 - Spinal stenosis, lumbar region with neurogenic claudication (2) Lumbar disc herniation with radiculopathy: Code(s): M51.16 - Intervertebral disc disorders with radiculopathy, lumbar region Category: Medical Plan Chronic back pain. Exam shows left depressed patellar relfex. Her symptoms are more left sided though disc herniation L4-5 is more right sided. MRI also shows spinal stenosis. Discussed options for conservative management such as injection versus referral to Neurosurgery. She has already tried the pain management route without much relief, she would like to know her surgical options. Referral to Dr. Pereira placed. PT on hold until she sees Neurosurgery. Assessment and plan discussed with patient, and patient was agreeable. All questions were answered thoroughly. Lorene Olsen MD, ETTO Board Certified, [place] [employer] and Rehabilitation (ABPMR) Board Certified, [place] Board [employer] Electrodiagnostic [employer] (ABEM) Orders: Referrals Neurosurgery Referral M48.061 - Spinal stenosis, lumbar region without neurogenic claudication, M51.16 - Intervertebral disc disorders with radiculopathy, lumbar region Coding Level of Care Code Est Pt Level 4 (55786) Diagnoses Spinal stenosis of lumbar region with neurogenic claudication M48.062 Neurogenic claudication status: with neurogenic claudication Lumbar disc herniation with radiculopathy M51.16
== END 2024-02-27 12:47 | disposition home or self-care (01) ==
PROVIDERS: PCP Family Medicine; Visit Provider Physical Medicine & Rehabilitation
DX: M48.062 Spinal stenosis, lumbar region with neurogenic claudication (principal); M51.16 Intervertebral disc disorders with radiculopathy, lumbar region
CPT/HCPCS: 99214

== ENCOUNTER → 2024-02-27 11:42 | Outpatient (BNVA) | payer MEDICAID, SELFPAY | PROVIDERS: PCP Family Medicine; Visit Provider Physical Medicine & Rehabilitation | DX: M48.062 Spinal stenosis, lumbar region with neurogenic claudication (principal); M51.16 Intervertebral disc disorders with radiculopathy, lumbar region | CPT/HCPCS: 99212 ==

== ENCOUNTER 2024-02-28 09:43 | Outpatient (AMB) | payer MEDICAID, SELFPAY ==
--- NOTE | 2024-02-28 10:18 | HO.SPINEOV ---
Intake Visit Reasons: spinal stenosis Intake Note: Ms. Uribe is here today c/o back pain. Clerical Production Worker Required: Yes Clerical Production Worker Name: Tablet Allergies No Known Allergies [NO KNOWN ALLERGIES] Allergy (Unknown, Verified 12/18/23 09:27) UNKNOWN Assessment & Plan Assessment & Plan (1) Lumbar disc herniation with radiculopathy: Code(s): M51.16 - Intervertebral disc disorders with radiculopathy, lumbar region Category: Medical (2) Lumbar spinal stenosis: Code(s): M48.061 - Spinal stenosis, lumbar region without neurogenic claudication Category: Medical Qualifiers: Neurogenic claudication status: with neurogenic claudication Qualified Code(s): M48.062 - Spinal stenosis, lumbar region with neurogenic claudication Plan Dear DR Cid, Thank you for referring Mrs Yordan You to our office today. She is a very nice 73-year-old female who presents today to the office with a 2 year history of progressive back pain that radiates down both of her legs. The symptoms can be present when she is sitting for long time, but also when she is standing and walking. The pain will go down into her legs in behind her knees. She also reports knee pains as well. The symptoms have been getting steadily worse despite efforts at physical therapy, customer care voice consultant and cortisone injections. She takes Tylenol and Motrin when the pain gets very bad or oxycodone which has been prescribed to her. She comes in today to the office with an MRI showing severe stenosis at L4-5 with a degenerative disc amongst other degenerative changes. PMH: She is reasonably healthy, she has history of high blood pressure, she has mild COPD. 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 She has had a history of knee pain arthritis of her knees, varicose vein surgery. Denies any history of heart attacks, strokes, kidney disease, liver disease, major abdominal surgery, blood clotting disorders, bleeding disorders, diabetes etc. Social hx: She does not smoke, drink or use any recreational drugs Medications: Losartan, she has it an inhaler albuterol, Tylenol, Motrin, calcium, alendronate, cetirizine, meloxicam, oxycodone Allergies: None Physical exam: Very pleasant female no acute distress, video electric motor control assembler used for today's visit, she has full strength of bilateral lower extremities, diminished reflexes at the patella and the Achilles. Imaging review: There is a lumbar MRI done [facility] as well as x-rays and this shows normal alignment of the lumbar spine, she has a degenerative disc at L4-5 causing moderate to severe central canal stenosis. On the x-rays it shows that there is more angulation on the right-sided L4-5 suggesting that the collapsed is worse on that level. The foramen at this level are open. There are some other milder degenerative changes throughout the lumbar spine but none as significant as the L4-5 level. Impression: 73-year-old female presents with 2 years of progressive back pain and bilateral lower extremity pain which has not responded to conservative management. She has moderate to severe stenosis at L4-5 with a severely collapsed disc, more prominent on the right. Dr. Pereira and I met with the patient, her daughter and through the electric motor control assembler had a lengthy discussion about options for treatment. We went through a thorough discussion about how significant the back pain is in her quality of life and she is very clear that it is not just the leg pain but the back pain that makes her unable to do most activities, travel or leave the house. Therefore simple decompression will not be enough. The plan will be for an L4-5 trans Kambin fusion, with the option of a TLIF as a backup if the nerve does not cooperate in the foramen. Pt was given risk and benefits of surgery including but not limited to infection, hematoma , nerve injury,durotomy, weakness,bowel/bladder injury, persistent pain, as well as the option to continue with conservative treatment and patient wishes to proceed with surgery. Pt is aware they should stop their motrin, aspirin 7 days prior to surgery. All questions were answered to the best of our ability. If there is anything about this patients medical history that we have overlooked or concerns you have about us proceeding with surgery we would appreciate any input you can offer. Thank you for allowing us to care for your patient. The total time spent with this visit with this patient was 45 minutes reviewing history, physical exam, lumbar imaging review, and implementation of treatment plan or further diagnostic testing Anthony Pereira MD,PhD [facility] Coding Level of Care Code New Pt Level 4 (65843) Diagnoses Lumbar disc herniation with radiculopathy M51.16 Spinal stenosis of lumbar region with neurogenic claudication M48.062 Neurogenic claudication status: with neurogenic claudication
== END 2024-02-28 11:13 | disposition home or self-care (01) ==
PROVIDERS: PCP Family Medicine; Referring Provider Physical Medicine & Rehabilitation; Visit Provider Physician Assistant
DX: M51.16 Intervertebral disc disorders with radiculopathy, lumbar region (principal); M48.062 Spinal stenosis, lumbar region with neurogenic claudication
CPT/HCPCS: 99204

== ENCOUNTER → 2024-02-28 09:43 | Outpatient (BNVA) | payer MEDICAID, SELFPAY | PROVIDERS: PCP Family Medicine; Visit Provider Physician Assistant | DX: M51.16 Intervertebral disc disorders with radiculopathy, lumbar region (principal); M48.062 Spinal stenosis, lumbar region with neurogenic claudication | CPT/HCPCS: 99212 ==

== ENCOUNTER 2024-03-05 12:45 | Outpatient (AMB) | payer MEDICAID, SELFPAY ==
--- NOTE | 2024-03-05 12:58 | MHC.OFFVIS ---
Vital Signs 03/05/24 12:59 Height 4 ft 10 in Weight 124 lb BMI 25.9 Pulse 66 Pulse Source Pulse Oximeter Pulse Oximetry (%) 96 Oxygen Delivery Method Room Air Intake Visit Reasons: dyspnea Silviculturist Required: No Allergies No Known Allergies [NO KNOWN ALLERGIES] Allergy (Unknown, Verified 03/05/24 13:00) UNKNOWN HPI Comments Details: The patient is a 73-year-old woman originally from [facility] with a history of COPD. the patient has been a lifelong nonsmoker. However, she was exposed to significant bile fuels while cooking with wood stove With poor ventilation. While in [place] she was placed on respiratory therapy including Salmeterol and also beclomethasone. she also has a rescue inhaler. The patient has been overall doing well. Denies any hospitalizations. However, she does have some increased chest tightness and some shortness of breath. Denies any productive phlegm. She has never had allergy testing. Therefore will have her undergo pulmonary function studies in addition to blood work. However, this point she seems to be stable enough on her current regimen. 02/15/2022 The patient is here for a pulmonary follow up visit. The patient continues to have dyspnea on exertion, mild to moderate. The inhalers have been partially helpful. We did review her PFTs demonstrating moderate COPD. No significant allergies noted. We will adjust her respiratory inhalers. 08/17/2022 the patient is here for a pulmonary follow-up visit. She continues to do very well. The patient has responded well to the Incruse inhaler. She actually has not had to use her QVAR nor the Breo. She also has not required her short-acting beta agonist. However, now will going to the winter months. This is usually when her when her airway disease becomes more effective. Therefore, we will recommend that she restart her QVAR if her symptoms start worsening. Will hold off on the Breo this time. The patient has not had any recent x-rays. Will have her follow-up in 6 months with the chest x-ray the same day. If the patient has any issues prior to that she is to have her x-ray done earlier and give us a call. 03/08/2023 the patient is here for pulmonary follow-up visit. Overall she is doing well from a respiratory status. She has been using uterus and is been very affecting beneficial. She has not had to use her rescue inhaler. She has got back from [place] where she spent a good amount of time. She was limited mainly due to her physical issues as opposed to her respiratory symptoms. She has not had any exacerbations and has not required any prednisone or antibiotics. The patient also also a chest x-ray but she has not has not as of yet. We did review her PFTs from 2021 them straightening and obstructive ventilatory defect consistent with moderate COPD. 03/05/2024 the patient is here for a pulmonary follow-up visit. Overall the patient has been doing well. She continues on the Incruse. Has not had any exacerbations. Has not required her rescue inhaler. At this point she is doing very good with minimal medication. She does need to have surgery for her back. She is going to have that soon. I do not foresee any respiratory issues. Although she should continue the Incruse for now. The patient did have a chest x-ray back in 08/19/2023 which I personally reviewed. Has significant granulomas in her lungs bilaterally and unchanged. This is likely from a previous infection. Will go ahead and repeat the chest x-ray in the fall of 2023. If she has any worsening respiratory symptoms prior to that she will call the office and get the x-ray at an earlier time. [facility] Medical History (Updated 03/05/24 @ 13:54 by Jose Lovelace MD) Pulmonary nodules Lumbar disc herniation with radiculopathy Lumbar spinal stenosis Left lumbar radiculitis Chronic back pain Tubular adenoma Allergies Asthma-COPD overlap syndrome Chronic cough Asthma Surgical History Hx of colonoscopy History of surgery on lower extremity Family History Daughter Stomach cancer Daughter HTN (hypertension) Daughter HTN (hypertension) Social History Patient Tobacco Use Status: Never used Tobacco Second Hand Smoke Exposure: No Current occupational status: retired and disabled Current occupation: rt hand Review of Systems Const Denies fever(s) and Denies weight loss Eyes Denies change in vision ENT Denies change in voice and Reports nasal discharge Card Denies chest pain and Denies dyspnea on exertion Resp Reports cough, Denies dyspnea on exertion and Denies wheezing GI Reports no additional complaints and Denies heartburn Musc Reports no additional complaints Skin/Breast Denies rash Neuro Reports no additional complaints Aller/Immun Denies wheezing Physical Exam Vital Signs: Last Vital Signs Pulse 66 03/05/24 12:59 Pulse Ox 96 03/05/24 12:59 Oxygen Delivery Method Room Air 03/05/24 12:59 BMI result Body Mass Index 25.9 Const General: alert Neck Neck: Yes normal visual inspection, Yes full ROM and Yes no lymphadenopathy Chest Chest palpation & inspection: normal inspection of the chest Resp Auscultation: diminished lung sounds Cardio Rate: regular rate Rhythm: regular rhythm Heart sounds: S1 normal heart sound present and S2 normal heart sound present GI Palpation (GI): Soft to palpation and nontender Auscultation: normal bowel sounds Skin General skin exam: rashes and/or lesions noted Assessment & Plan Assessment & Plan (1) Asthma-COPD overlap syndrome: Code(s): J44.9 - Chronic obstructive pulmonary disease, unspecified Category: Medical (2) Pulmonary nodules: Code(s): R91.8 - Other nonspecific abnormal finding of lung field Category: Medical Plan continue Incruse DELMER as needed CXR Fall 2023 F/U 1 yr Orders: Orders XR chest 2V 06/01/24 R91.8 - Other nonspecific abnormal finding of lung field Coding Level of Care Code Est Pt Level 4 (63346) Diagnoses Asthma-COPD overlap syndrome J44.9 Pulmonary nodules R91.8 Time Spent (min) 16
[2024-03-05 12:59] VITALS: PULSE 66; O2SAT 96; BMI 25.9
== END 2024-03-05 13:12 | disposition home or self-care (01) ==
PROVIDERS: PCP Family Medicine; Visit Provider Hospitalist
DX: J44.9 Chronic obstructive pulmonary disease, unspecified (principal); R91.8 Other nonspecific abnormal finding of lung field
CPT/HCPCS: 99214

== ENCOUNTER → 2024-03-05 12:45 | Outpatient (BNVA) | payer MEDICAID, SELFPAY | PROVIDERS: PCP Family Medicine; Visit Provider Hospitalist | DX: J44.9 Chronic obstructive pulmonary disease, unspecified (principal); R91.8 Other nonspecific abnormal finding of lung field | CPT/HCPCS: 99212 ==

== ENCOUNTER → 2024-03-09 13:10 | Outpatient (BNV) | payer MEDICAID, SELFPAY | PROVIDERS: PCP Family Medicine; Visit Provider Internal Medicine | DX: R94.31 Abnormal electrocardiogram [ECG] [EKG] (principal) | CPT/HCPCS: 93010 ==

== ENCOUNTER 2024-03-10 10:06 | Inpatient (IN) | payer MEDICAID, SELFPAY ==
--- NOTE | 2024-03-09 | ECG_ITS ---
Test Reason : preop Blood Pressure : / mmHG Vent. Rate : 067 BPM Atrial Rate : 067 BPM P-R Int : 150 ms QRS Dur : 094 ms QT Int : 434 ms P-R-T Axes : 059 023 015 degrees QTc Int : 458 ms Normal sinus rhythm Nonspecific ST and T wave abnormality Abnormal ECG No significant changes when compared with the previous EKG of 26 oct 2018 Referred By: Vicky Esparza Electronically Signed By:EVELYN BUSCH
[2024-03-09 12:25] VITALS: BP 173/84; PULSE 69; RESP 18; O2SAT 98; BMI 28.5
[2024-03-09 13:50] LABS: Hematocrit 38.6 % (37.0-47.0); Hemoglobin 13.2 g/dl (12.0-16.0); Mean Corpuscular HGB Conc 34.2 g/dl (31.0-35.0); Mean Corpuscular Hemoglobin 28.4 pg (27.0-33.0); Mean Corpuscular Volume 83.2 fL (80.0-98.0); Platelet Count 207 X10*3/uL (160-400); Red Blood Count 4.64 X10*6/uL (4.20-5.50); Red Cell Distribution Width 12.6 % (11.0-16.0); White Blood Count 6.1 X10*3/uL (4.8-10.8)
[2024-03-09 15:00] LABS: Anion Gap 17 (12-20); Blood Urea Nitrogen 9 mg/dL (9-16); Calcium 9.5 mg/dL (8.4-10.2); Carbon Dioxide 26 mmol/L (22-29); Chloride 94 mmol/L (96-108); Creatinine Clr Calc Pharmacy 55.3; Estimated Glomerular Filt Rate > 60; Glucose Random 87 mg/dL (60-115); Potassium 4.2 mmol/L (3.3-5.1); Sodium 133 mmol/L (135-145)
[2024-03-10] VITALS (12 sets, daily range): BP systolic 99–132; BP diastolic 52–68; PULSE 73–89; RESP 14–18; TEMP 36–36.9; O2SAT 94–98; BMI 27.7; BMI 29.7
--- NOTE | ~2024-03-10 | FL_ITS ---
EXAMINATION: XR FLUOROSCOPY WITH IMAGES CLINICAL INFORMATION: L4-5 Trans-Kambin lumbar interbody fusion COMPARISON: MR lumbar spine 01/14/2024. TECHNIQUE: Fluoroscopy Supervised By: Dr. Rudy Pereira. Fluoroscopy Time: 1.62 minutes. Cumulative Dose: 59.002 mGy. DAP: 70.227 Gycm2. Images: 4. FINDINGS: Imaging provided to Dr. Pereira for placement of posterior spinal hardware and interbody device at L4-L5. Please see Dr. Pereira' report for full details. FL/FL guidance in OR IMPRESSION: Fluoroscopy and spot films provided for lumbar surgery.
[2024-03-10] MEDS: Gabapentin 300 MG CAPSULE PO ×2 (10:12→19:58)
[2024-03-10] MEDS: methocarbamoL 750 MG TABLET PO (10:12)
[2024-03-10] MEDS: Lactated Ringers 1,000 ML 100 ML IVCONT (10:49)
--- NOTE | 2024-03-10 12:52 | MHC.SHP ---
Pre-Procedural Eval Section A - 24 Hr Update-Section A only Date of Service: 03/10/24 The patient is an INPATIENT: No The patient has been examined within 24 hours of the surgical procedure. The History & Physical has been completed within 30 days and I have reviewed it.: Yes Section B - Complete if H&P > 30 days Chief Complaint: s/p L4-5 transkambin lumbar fusion Allergies: Allergies Allergy/AdvReac Type Severity Reaction Status Date / Time No Known Allergies Allergy Verified 03/10/24 09:51 Plan I have reviewed the history and physical and performed a pertinent physical examination on my patient. No changes have occurred unless specified. L4-5 oblique lateral lumbar interbody fusion, TransKambin approach. Possible conversion to an L4-5 TLIF. Time Spent With Patient Time: Total time managing care of this patient today _ 5 ___ minutes.
--- NOTE | 2024-03-10 13:45 | HO.ANESPROP2 ---
Documented by User: Vicky Esparza NP 03/09/24 12:55 HPI - Anesthesia Eval Consult details Narrative: 73yo F for L4-5 Transkambin Lumbar Interbody Fusion No recent illness No CP/SOB with limited activity related to back pain ~ 3months. No limitations prior Asthma stable: only required albuterol at beginning of diagnosis (about 3 years ago) Follows [facility] Pulmo: optimized for surgery per 02/2024 office visit note PMFSH Active Problems Active Problems: All Active Problems Pulmonary nodules (Acute) Lumbar disc herniation with radiculopathy (Acute) Lumbar spinal stenosis (Acute) Sacroiliac joint dysfunction of left side (Acute) Left lumbar radiculitis (Acute) Left hip pain (Acute) Chronic back pain (Acute) Osteoarthritis of left knee (Acute) Right hip pain (Acute) Lumbar spondylosis (Acute) Lumbar radiculopathy, right (Acute) Bilateral knee pain (Acute) Varicose veins of right lower extremity with inflammation (Acute) Asthma (Acute) Chronic cough (Acute) Asthma-COPD overlap syndrome (Acute) Allergies (Acute) Tubular adenoma (Acute) Past Medical History Medical History (Updated 03/09/24 @ 12:11 by Joan Ochoa RN) Arthritis Numbness Elevated cholesterol HTN (hypertension) Pulmonary nodules Lumbar disc herniation with radiculopathy Lumbar spinal stenosis Left lumbar radiculitis Chronic back pain Tubular adenoma Allergies Asthma-COPD overlap syndrome Chronic cough Asthma Family History Family History Daughter Stomach cancer Daughter HTN (hypertension) Daughter HTN (hypertension) Family history of problems with anesthesia: No Surgical History Surgical History Hx of colonoscopy History of surgery on lower extremity History of Problems with Anesthesia: No (Remote hx N/V. None after phlebectomy 03/2023 with GETA) Social History Social History Are you a primary home care liaison to a significant other at home: No Do you presently have visiting nurse or other home services: No Patient Tobacco Use Status: Never used Tobacco Second Hand Smoke Exposure: No Use of substances other than those prescribed or required for medical reasons: No Have you been hit, kicked, punched, or otherwise hurt by someone within the past year? If so, by whom?: No Are you DNR?: No Advance Directives: No Advance Directives Information Provided: Yes Advance Directives on File: No Recently lost weight without trying: No Eating poorly because of decreased appetite: No Nutrition Risks: No Nutritional Risk Patient : No : No Poor oral hygiene: Yes (full upper and lower dentures) Current occupational status: retired and disabled Current occupation: rt hand Meds Allergies Allergy/AdvReac Type Severity Reaction Status Date / Time No Known Allergies Allergy Verified 03/10/24 09:51 Home Medications ?Medication ?Instructions ?Recorded ?Confirmed ?Last Taken ?Type atorvastatin 80 mg tablet 80 mg PO BEDTIME 04/04/23 03/10/24 Unknown History losartan 50 mg tablet 100 mg PO BEDTIME 10/21/23 03/10/24 Unknown History peg [id number] 1 1 drp ophthalmic (eye) Q4-6H PRN 10/21/23 03/10/24 Unknown History %-0.2 %-0.2 % eye drops dry eyes (Artificial Tears ([id number])) albuterol sulfate 90 mcg/actuation 2 inh inhalation Q8-12H PRN 03/09/24 03/10/24 Unknown History aerosol inhaler shortness of breath or wheezing Exam Airway Mallampati Class: III TM Dist: >3cm Neck ROM: Full Denture: Upper and Lower Heart: RRR Lungs: CTAB Assessment and Plan Assessment Anesthesia Assessment: Anesthesia Plan Discussed and PAT Visit Final Anesthetic Review Family History of Problems with Anesthesia: No History of Problems with Anesthesia: No (Remote hx N/V. None after phlebectomy 03/2023 with GETA) Documented by User: Sahra Laird DO 03/10/24 14:52 PMFSH Past Medical History Medical History (Updated 03/09/24 @ 12:11 by Joan Ochoa RN) Arthritis Numbness Elevated cholesterol HTN (hypertension) Pulmonary nodules Lumbar disc herniation with radiculopathy Lumbar spinal stenosis Left lumbar radiculitis Chronic back pain Tubular adenoma Allergies Asthma-COPD overlap syndrome Chronic cough Asthma Family History Family History Daughter Stomach cancer Daughter HTN (hypertension) Daughter HTN (hypertension) Family history of problems with anesthesia: No Surgical History Surgical History Hx of colonoscopy History of surgery on lower extremity History of Problems with Anesthesia: Yes (PONV) Social History Social History Are you a primary home care liaison to a significant other at home: No Do you presently have visiting nurse or other home services: No Patient Tobacco Use Status: Never used Tobacco Second Hand Smoke Exposure: No Use of substances other than those prescribed or required for medical reasons: No Have you been hit, kicked, punched, or otherwise hurt by someone within the past year? If so, by whom?: No Are you DNR?: No Advance Directives: No Advance Directives Information Provided: Yes Advance Directives on File: No Recently lost weight without trying: No Eating poorly because of decreased appetite: No Nutrition Risks: No Nutritional Risk Patient : No : No Poor oral hygiene: Yes (full upper and lower dentures) Current occupational status: retired and disabled Current occupation: rt hand Meds Allergies Allergy/AdvReac Type Severity Reaction Status Date / Time No Known Allergies Allergy Verified 03/10/24 09:51 Home Medications ?Medication ?Instructions ?Recorded ?Confirmed ?Last Taken ?Type atorvastatin 80 mg tablet 80 mg PO BEDTIME 04/04/23 03/10/24 Unknown History losartan 50 mg tablet 100 mg PO BEDTIME 10/21/23 03/10/24 Unknown History peg [id number] 1 1 drp ophthalmic (eye) Q4-6H PRN 10/21/23 03/10/24 Unknown History %-0.2 %-0.2 % eye drops dry eyes (Artificial Tears ([id number])) albuterol sulfate 90 mcg/actuation 2 inh inhalation Q8-12H PRN 03/09/24 03/10/24 Unknown History aerosol inhaler shortness of breath or wheezing Exam Exam Date and Time: March 10, 2024 1346 Height,Weight and Vital Signs: Height 4 ft 8 in Weight 55.973 kg Vital Signs Pulse Rate 69 03/09/24 12:25 Respiratory Rate 18 03/09/24 12:25 Blood Pressure 173/84 H 03/09/24 12:25 Pulse Oximetry 98 03/09/24 12:25 Oxygen Delivery Method Room Air 03/09/24 12:25 Temperature 98.4 F 03/10/24 10:06 Pulse Rate 73 03/10/24 10:06 Respiratory Rate 16 03/10/24 10:06 Blood Pressure 129/52 L 03/10/24 10:06 Pulse Oximetry 97 03/10/24 10:06 Oxygen Delivery Method Room Air 03/10/24 10:06 Airway Mallampati Class: II TM Dist: >3cm Neck ROM: Full Denture: Upper Partial: Lower Heart: S1S2 Assessment and Plan Assessment Anesthesia Assessment: Anesthesia Plan Discussed and Chart Reviewed Final Anesthetic Review Family History of Problems with Anesthesia: No History of Problems with Anesthesia: Yes (PONV) NPO: Yes ASA Class: II Final Preanesthetic Review: No Changes in Pt Med Stat, Meds/Allgs Chart Reviewed, Consent Obtained/Reviewed (cloth baler at bedside for translation) and Anes Risks/Benef Reviewed Patient Risk: Low Procedure Risk: Intermediate Anesthetic Plan Anesthetic Plan: GA and Agree w/ Assess. and Plan Disposition: Standard PACU
--- NOTE | 2024-03-10 15:10 | W.PM.OPN ---
Operative Note Operative Note Date of Service: 03/10/24 Narrative: Preoperative diagnosis: 1) lumbar spinal stenosis with neurogenic claudication 2) chronic back pain Postprocedure diagnosis: 1) same as above Procedure: 1) L4-5 oblique lateral lumbar interbody fusion with discectomy, preparation of the endplates and placement of a titanium bullet cage packed with allograft, anterior to the transverse process in modified prone position, with intraoperative biplanar fluoroscopy imaging and electrophysiological monitoring 2) L4-5 posterior minimally invasive pedicle screw placement and posterior lateral instrumentation and fusion with intraoperative biplanar fluoroscopic imaging and electrophysiological monitoring 3 injection of 10 cc of Exparel at the bilateral L4 transverse process for a muscular erector spinae block and additional Exparel in paravertebral tissue for postop management Consent Informed Consent was obtained for this operation. I have explained the nature, purpose and benefits of the operation. I have discussed the risks and benefit of the operation including possible complications or adverse events with patient/family. Alternative(s) were discussed with the patient with their relative benefits and risks as well as the consequences of not accepting the operation were included in obtaining consent. Surgeon: RUSS JENNINGS MD, PHD Procedure Assisted By: milly Armenta Description of Procedure: This is a complex surgery on the lumbar spine and an personnel assistant as needed for safety of the surgery for setup of instrumentation, retraction and closing. History: This 73-year-old female suffering from chronic low back pain and neurogenic claudication. MRI showing lumbar degenerative disc disease with moderate to severe spinal stenosis L4-5. The patient was offered an oblique lumbar lateral interbody fusion followed by a posterior lateral instrumented fusion L4-5. The procedure and complications were explained and the patient was consented. Procedure: The patient was brought to the operating room and endotracheally intubated. The patient was positioned on the Palomo spine table in a modified prone position for ease of access from the left side.. 2C arms were installed for fluoroscopy. Prepping and draping was done followed by timeout. The landmarks, including spinal processes, transverse processes, disc space, endplates and pedicles are identified and marked. The following steps are taken for each specified level: L4-5 level: Cage size 11 mm high and 33 mm long titanium . The patient was turned using the rotation of the surgical table so a near direct anterior lateral approach to the lumbar spine could be achieved. A small incision was then made superior to the mid iliac crest and then using biplanar fluoroscopy visualization, under electrophysiological monitoring and stimulation, we introduced an electrophysiological probe through the retroperitoneal space into the desired disc anterior to the transverse process and then passed it into the disc space after finding a silent window. The sleeve was retained and the probe was removed, then the K wire was passed sequentially into the disc space. A dilating tube was then passed along the same route. Following this, a working channel, a working channel was then passed sequentially into the disc space. The working channel was manually held in position while a series of disc cleaning tools were passed through the channel to remove the affected disc under clear and direct biplanar fluoroscopic visualization, decompress the nerve roots and equal corticated vertebral endplates at this segment. Arthrodesis of the intervertebral space via an anterior retroperitoneal exposure was achieved through Kambin's [place] and lateral extraforaminal space. Allograft was added into the anterior disc space. The working channel was then removed. A titanium interbody cage tightly packed with allograft was then inserted into the midportion of the intervertebral disc space over a K-wire under biplanar fluoroscopic visualization and intraoperative neuro monitoring. The inter pedicular and intradiscal space was significantly enlarged and disc height was restored to worked normal anatomy there for releasing pressure on the nerve roots visual largely the spinal canal and lateral recess as well as foramen were bilateral decompressed and all bones were confined to the borders of the disc space . The following steps are then taken for each specified level: L4-5 level: Bilateral L4 and L5 screws with a diameter of 6.5 x 45 mm. The posterolateral fusion is initiated after the patient is rotated to a true prone position. The entry point to the pedicle is identified in the AP and lateral views and then the skin incision is injected with local anesthetic. We entered the pedicle with the pediguard tap after which a K-wire was introduced into the vertebral body. Additionally, I used a small periosteal decorticator along the screws to refresh the surface of the bone and facet and I put some amount of allograft for additional stability for the posterolateral fusion. Over the K-wire we insert pedicle screws bilaterally. After the screws were placed, we put the tej in place and under fluoroscopic imaging, we locked the tej in place and removed the screw tops and then each incision has been closed with 0 Vicryl for the fascia and a 3-0 Vicryl for the subdermal layer. Steri-Strips were used to approximate the incisions. An OpSite with Tegaderm was used to cover the incision. Final x-rays and AP and lateral projection showed good position of the interbody device and instrumentation. All sponge and needle counts were correct. The patient was extubated and transported in a stable condition to the recovery room. 2-0 Vicryl This procedure was done with the aid of a physician personnel assistant as a qualified resident was not available. Anesthesia: General Estimated Blood Loss (ml): 70 mL Specimen: None Duration of Surgery: 60 minutes Postoperative Plan: Admit to inpatient
[2024-03-10] MEDS: 0.9 % Sodium Chloride 1,000 ML 75 ML IVCONT (17:55)
--- NOTE | 2024-03-10 19:15 | PHA.MEDREC ---
Pharmacy Consult ? Medication Reconciliation Pharmacy has completed the medication reconciliation. spoke to patient via custom feed mill operator named Roopa to confirm med list.
[2024-03-10] MEDS: ceFAZolin Sodium/Dextrose,Iso 2 GM/50 ML PIGGYBACK IV (19:57)
[2024-03-10] MEDS: Docusate Sodium 100 MG CAPSULE PO (19:58)
[2024-03-10] MEDS: Atorvastatin Calcium 80 MG TABLET PO (19:58)
[2024-03-10] MEDS: hydrOXYzine HCL 25 MG TABLET PO (19:58)
[2024-03-10] MEDS: Losartan Potassium 50 MG TABLET 100 MG PO (19:58)
[2024-03-10] MEDS: Ketorolac Tromethamine 15 MG/ML VIAL IVPUSH (21:04)
[2024-03-10] MEDS: Acetaminophen 1,000 MG/100 ML PIGGYBACK 400 MG IV (21:04)
[2024-03-10] MEDS: ondansetron HCL 4 MG/2 ML VIAL IVPUSH (23:51)
[2024-03-11 00:11] VITALS: BP 94/52; PULSE 74; RESP 18; TEMP 36.1; O2SAT 94
[2024-03-11] MEDS: ceFAZolin Sodium/Dextrose,Iso 2 GM/50 ML PIGGYBACK IV ×2 (02:08→07:14)
[2024-03-11] MEDS: Ketorolac Tromethamine 15 MG/ML VIAL IVPUSH ×2 (02:59→07:58)
[2024-03-11] MEDS: Acetaminophen 1,000 MG/100 ML PIGGYBACK 400 MG IV ×2 (03:00→07:56)
[2024-03-11 03:15] VITALS: BP 115/57; PULSE 74; RESP 18; TEMP 36.2; O2SAT 93
[2024-03-11 03:31] VITALS: O2SAT 98
--- NOTE | 2024-03-11 06:59 | P.DS_ITS ---
DS: Providers Provider Date of Service: 03/11/24 Date of admission: 03/10/24 10:06 Primary care physician: China Lemon MD DS: Summary Time Attestation Discharge Coordination Time (in mins): 30 Quality: Safe Use of Opioids Does Pt have an Active Cancer Diagnosis on the Problem List?: No Quality: Stroke Does the patient have a stroke diagnosis?: No Physical Exam Vital Signs: Vital Signs: Last Vital Signs Temp 97.1 F 03/11/24 03:15 Pulse 74 03/11/24 03:15 Resp 18 03/11/24 03:15 BP 115/57 L 03/11/24 03:15 Pulse Ox 98 03/11/24 03:31 O2 Del Method Nasal Cannula 03/11/24 03:31 O2 Flow Rate 2 03/11/24 03:31 BMI result Body Mass Index 29.7 Discharge Plan Discharge Anticipated Discharge Date/Time: 03/11/24 06:59 Patient Disposition: Home, Self-Care Discharge Diagnosis: S/P L4-5 Transkambin Fusion Referrals: China Lemon MD [Primary Care Provider] - 1 Week Discharge Medications: New oxycodone 5 mg tablet 5 mg PO Q6H PRN (Reason: severe pain (scale score 7-10)) Qty: 30 0RF Rx Instructions: Partial Fill upon patient request. Continued atorvastatin 80 mg tablet 80 mg PO BEDTIME losartan 50 mg tablet 100 mg PO BEDTIME albuterol sulfate 90 mcg/actuation HFA aerosol inhaler 2 inh inhalation Q8-12H PRN (Reason: shortness of breath or wheezing) alendronate 70 mg tablet 70 mg PO SA@0900 amlodipine 10 mg tablet 10 mg PO QAM Incruse Ellipta 62.5 mcg/actuation blister with device 1 inh INHALATION DAILY ketotifen fumarate [Eye Itch Relief] 0.025 % (0.035 %) drops 1 drp ophthalmic (eye) BID Rx Instructions: Both eyes calcium carbonate-vitamin D3 [Calcium 500 + D (D3)] 500 mg-3.125 mcg (125 unit) Tablet 1 tab PO DAILY Discharge Orders: Discharge Order (Routine); Ordered 03/11/24 Ordered By: Reggie Morris Diet: Advance to usual diet Activity on Discharge: As tolerated Stand Alone Forms: Patient Portal Discharge page Print Language: Monegasque Care Plan Goals: Returned to normal activity as tolerated Health Concerns: None Plan of Treatment: Returned to normal activity as tolerated Assessment: POD: 1 Procedure: L4-5 Katiana Rodriguez was seen this morning sitting upright in bed on 3-S. Patient reports she is up walking around is otherwise doing well. She feels her shooting leg pain has significantly improved, but she still has quite a bit of back pain. She does report good relief with pain medication. She is OOB voiding well, to lerating diet. Afebrile, vital signs stable. Full strength 5/5 LEs. Back dressings have some staining without signs of hematoma. No active sanguineous drainage. Area is dry. Plan: Patient meets criteria to be medically discharged home. She was seen at bedside with Dr. Pereira.
--- NOTE | 2024-03-11 07:03 | HO.NEURO.PN ---
Neurosurgery Operative Note Date of Service: 03/11/24 Narrative: POD: 1 Procedure: L4-5 Transkambin Jennifer was seen this morning sitting upright in bed on 3-S. Patient reports she is up walking around is otherwise doing well. She feels her shooting leg pain has improved, but still has quite a bit of back pain. She does report good relief with pain medication. She is OOB voiding well, tolerating diet. Afebrile, vital signs stable. Full strength 5/5 LEs. Still has diminished patella / achilles reflexes. Back dressings have some staining without signs of hematoma. No active sanguineous drainage. Area is dry. Plan: Jennifer is POD:1 S/P L4-5 Transkambin. She is voiding well and tolerating her current diet. I would like her to be evalauted by PT this AM and if they agree we can have her D/C'd home. Patient meets criteria to be medically discharged home. She was seen at bedside with Dr. Pereira.
[2024-03-11] MEDS: oxyCODONE HCl Immed Release 5 MG TABLET 10 MG PO ×2 (07:13→12:58)
[2024-03-11 07:47] VITALS: BP 118/56; PULSE 81; RESP 12; TEMP 36.4; O2SAT 96
[2024-03-11] MEDS: Gabapentin 300 MG CAPSULE PO (07:59)
[2024-03-11] MEDS: hydrOXYzine HCL 25 MG TABLET PO (07:59)
[2024-03-11] MEDS: Docusate Sodium 100 MG CAPSULE PO (08:00)
--- NOTE | 2024-03-11 10:07 | HO.POSTANES ---
Post Anesthesia Evaluation Post Anesthesia Evaluation Date of Service: 03/11/24 Vital Signs: Vital Signs Temp Pulse Resp BP Pulse Ox O2 Del Method O2 Flow Rate 03/11/24 07:47 97.5 F 81 12 118/56 L 96 Room Air 03/11/24 03:31 98 Nasal Cannula 2 03/11/24 03:15 97.1 F 74 18 115/57 L 93 Nasal Cannula 2 03/11/24 00:11 96.9 F 74 18 94/52 L 94 Nasal Cannula 2 Anesthesia: General Endotracheal-GETA Mental Status: Awake Pain Control: Satisfactory Nausea/Vomiting: None Hydration: Adequate Anesthesia-Related Issues: No Anes. Related Issues
--- NOTE | 2024-03-11 10:54 | MHC.CM.PN ---
S/P L4-5 lumbar fusion. She lives with er dtr. She uses a cane. She is independent with adls. DP home self care. Patients dtr will provide transportation home. Discharge is planned for today. Patients dtr coming to pick her up this afternoon.
== END 2024-03-11 13:30 | disposition home or self-care (01) | DRG 304 ==
LOC: HO.SSSA 10:09 → HO.S3 16:45
PROVIDERS: Neurological Surgery; Nurse Practitioner; Admitting Provider Physician Assistant; PCP Family Medicine; Visit Provider Physician Assistant
PROC: 0SG00A0 Fusion of Lumbar Vertebral Joint with Interbody Fusion Device, Anterior Approach, Anterior Column, Open Approach (ICD-10-PCS; CPT 22612; principal; 2024-03-10 12:30)
DX: M48.062 Spinal stenosis, lumbar region with neurogenic claudication (principal); I10 Essential (primary) hypertension; M51.06 Intervertebral disc disorders with myelopathy, lumbar region; J44.9 Chronic obstructive pulmonary disease, unspecified; Z79.899 Other long term (current) drug therapy
CPT/HCPCS: 22612; 20930; 22558; 63056; 22840; 22853; 36415; 80048; 85027; 86850; 86900; 86901; 93005; 97162; C1713; C1889; C9290; J0131; J0665; J0690; J1100; J1170; J1200; J1885; J2250; J2405; J2704; J3010; L8699

== ENCOUNTER → 2024-03-10 10:06 | Outpatient (BNV) | payer MEDICAID, SELFPAY | PROVIDERS: Admitting Provider Physician Assistant; PCP Family Medicine; Visit Provider Neurological Surgery | DX: Z48.89 Encounter for other specified surgical aftercare (principal) | CPT/HCPCS: 20930; 22558; 22612; 22840; 22853; 63056; 99024 ==

== ENCOUNTER 2024-03-30 09:20 | Outpatient (REF) | payer MEDICAID, SELFPAY | END 2024-03-30 09:21 | disposition home or self-care (01) | LOC: HO.HOSX 09:20 | PROVIDERS: PCP Family Medicine; Visit Provider Physician Assistant | DX: Z98.1 Arthrodesis status (principal) | CPT/HCPCS: 99212 ==

== ENCOUNTER 2024-03-30 09:20 | Outpatient (AMB) | payer MEDICAID, SELFPAY ==
--- NOTE | 2024-03-30 10:02 | HO.SPINEOV ---
Intake Visit Reasons: 1st post op Intake Note: Ms. Jojo You is here today for her 1st post-op visit. Lamp Shades Supervisor Required: Yes Allergies No Known Allergies Allergy (Verified 03/10/24 09:51) Assessment & Plan Assessment & Plan (1) S/P lumbar fusion: Code(s): Z98.1 - Arthrodesis status Category: Surgical Plan Procedure: L4-5 Tranksambin Lumabr Fusion Jennifer comes in today for her 1st postoperative visit. She reports she has been doing very well since the surgery although still has quite a bit of back pain. She only feels complete relief of pain when she is lying flat. She is still able to ambulate around her home and complete stairs although does find it somewhat difficult. She reports a burning sensation over her anterior thighs, and some continued low back pain. We discussed how this is likely a result of the surgery, and is expected to resolve by her next appointment. She did not request refills any medications and states she has not taken them any further. She did request something for the burning sensation, so I offered a prescription of gabapentin, which she would like to have. No new neurological deficits. Patient is able to ambulate well, rises from a seated position without difficulty. Posterior incision sites are closed, well healing, with no signs of drainage. We will follow-up with the patient in 6 weeks for their 2nd postoperative visit. At that time we will get x-rays to review with the patient. Reggie Pereira MD,PhD [facility] Coding Level of Care Code Global (58757) Diagnoses S/P lumbar fusion Z98.1
== END 2024-03-30 10:13 | disposition home or self-care (01) ==
PROVIDERS: PCP Family Medicine; Visit Provider Physician Assistant
DX: Z98.1 Arthrodesis status (principal)
CPT/HCPCS: 99024

== ENCOUNTER 2024-05-14 11:09 | Outpatient (AMB) | payer MEDICAID, SELFPAY ==
--- NOTE | 2024-05-14 11:24 | A.SPINEOV_ITS ---
Intake Visit Reasons: 2nd post op with Xrays Intake Note: Ms. Uribe is here today for her 2nd post op visit with X-rays. Transcribing Operators Supervisor Required: Yes Transcribing Operators Supervisor Name: Tablet Allergies No Known Allergies Allergy (Verified 05/14/24 11:39) Assessment & Plan Assessment & Plan (1) S/P lumbar fusion: Code(s): Z98.1 - Arthrodesis status Category: Surgical Plan Procedure: L4-5 oblique lateral lumbar interbody fusion Jennifer comes in today for her 2nd postoperative visit. She has been doing very well since her surgery, however still has some low back pain and some pains in her anterior thigh. We reviewed her x-ray imaging that was taken during this visit today which shows stable placement of her surgical construct / instrumentation. I answered all of her and her daughter's questions to the best of my ability. No new neurological deficits. Patient is able to ambulate well, rises from a seated position without difficulty. Incision sites are closed, well healing, with no signs of drainage. Due to marked read his continued pain, I would like to send her for a course of physical therapy. I would like to follow up with her in the office after physical therapy to ensure that she continues to make progress. Reggie Pereira MD,PhD [facility] Orders: Orders PT Evaluation and Treatment 05/14/24 Z98.1 - Arthrodesis status Coding Level of Care Code Global (46674) Diagnoses S/P lumbar fusion Z98.1
== END 2024-05-14 11:58 | disposition home or self-care (01) ==
PROVIDERS: PCP Family Medicine; Visit Provider Physician Assistant
DX: Z98.1 Arthrodesis status (principal)
CPT/HCPCS: 99024

== ENCOUNTER 2024-05-14 11:09 | Outpatient (REF) | payer MEDICAID, SELFPAY ==
--- NOTE | ~2024-05-14 | XR_ITS ---
EXAMINATION: XR LUMBOSACRAL SPINE CLINICAL INFORMATION: Status-post arthrodesis. COMPARISON: Lumbar spine radiographs dated 10/21/2023. TECHNIQUE: AP and lateral views of the lumbar spine were obtained. Lateral views were obtained in flexion, extension, and neutral positions. FINDINGS: There is bony demineralization. There is a mild lumbar rotatory dextroscoliosis. The lower thoracic and lumbar disc spaces are well-maintained. Intact posterior fixator rods, pedicular screws and disc spacer are seen status-post L4-5 posterior fusion. No hardware failure or loosening is seen. There is no significant instability with flexion or extension. The posterior elements are intact. There is aortoiliac atherosclerotic calcification. XR/XR lumbar spine 4V min IMPRESSION: 1. There is well-maintained alignment status-post L4-5 posterior fusion and discectomy. No hardware failure or loosening is seen. There is no instability with flexion or extension. 2 there is a mild lumbar rotatory dextroscoliosis. Electronically signed by: Vasiliy Austin MD 06/10/2024 07:59 PM EDT
== END 2024-05-14 11:10 | disposition home or self-care (01) ==
LOC: HO.HOSX 11:09
PROVIDERS: PCP Family Medicine; Visit Provider Physician Assistant
DX: Z98.1 Arthrodesis status (principal)
CPT/HCPCS: 72110; 99212

== ENCOUNTER 2024-08-11 14:35 | Emergency (ER) | payer MEDICAID, SELFPAY | END 2024-08-11 16:20 | disposition left against medical advice (07) | PROVIDERS: Emergency Provider Emergency Medicine; PCP Family Medicine | DX: Z53.21 Procedure and treatment not carried out due to patient leaving prior to being seen by health care provider (principal) ==

== ENCOUNTER 2024-08-13 14:48 | Outpatient (RCR) | payer MEDICAID, SELFPAY ==
--- NOTE | 2024-07-01 17:19 | MHC.PT.EP ---
[facility] [place] [facility] [place] [facility] [place] Office [address] Pastora Cameron [address] [phone] F: [phone] F: [phone] F: [phone] F: [phone] Physical Therapy Plan of Care Date of Evaluation: 07/01/24 Date of Surgery: 03/10/24 Diagnosis: Lumbar fusion Assessment: Pt is a 74yo female referred to PT s-p lumbar fusion on 03/10/24. Impairments include gross lower extremity weakness, pain with all lower extremity and lumbar active motion, postural and gait abnormalities, tissue restrictions, and difficulty with functional tasks such as bathing/dressing. Pt is a good candidate for skilled PT due to her motivation to improve, modifiable nature of her impairments, and typical prognosis of her condition. Pt would benefit from a progressive strengthening/stretching program, postural re-education, gait training, instruction regarding use of at home tools, functional task training for ADL's, manual therapy for tissue restrictions, and modalities for pain management. Frequency and Duration: The patient will be seen 2x/wk for 6 weeks Short Term Goals: Pt will be independent with HEP for self management of condition Pt will demonstrate proper sitting posture with lumbar roll to encourage neutral sitting posture Nursing Home Goals: Pt will increase all LE strength values by 1 MMT to promote ease in daily tasks Pt will ambulate 1000ft with AD <=3/10 pain for navigation of home Treatment Plan: Modalities to reduce pain, spasms and effusion. Manual therapy to restore motion and function. Therapeutic exercise to improve strength and flexibility. Neuromuscular re-education for posture and balance. Therapeutic activities to return to functional activities of daily living. Electronically signed by: Martha Oro PT, DPT Please sign and return to therapist. Thank you for your referral.
--- NOTE | 2024-08-13 15:47 | MHC.PT.DC ---
[facility] [place] [facility] [place] [facility] [place] [facility] [address] Pastora Cameron [address] [phone] F: [phone] F: [phone] F: [phone] F: [phone] Physical Therapy Discharge Report Diagnosis: Lumbar fusion Date of Surgery: 03/10/24 Date of Evaluation: 07/01/24 Date of Discharge: 08/13/24 Treatments to Date: 11 Cancellations to Date: 2 No Shows to Date: 0 Discharge Status: Improved Function Independent with HEP Discharge Summary: The patient overall was reporting less intense back pain. She had fluctuations in her back pain throughout this plan of care when she was feeling much better and also had some severe flare-ups. Overall, this made it difficult to progress her exercise program. She has a mostly bed level program for hip mobility and core strengthening. At this time, she has plateaued and will be discharged to her home exercise program. Electronically signed by: Martha Oro PT, DPT Please sign and return to therapist. Thank you for your referral.
== END 2024-08-13 15:47 | disposition home or self-care (01) ==
LOC: HO.PT 14:48
PROVIDERS: PCP Family Medicine; Visit Provider Physician Assistant
DX: Z98.1 Arthrodesis status (principal)
CPT/HCPCS: 97110; 97140; 97161

== ENCOUNTER 2024-11-26 11:32 | Outpatient (REF) | payer MEDICAID, SELFPAY ==
[2024-11-26 14:23] LABS: MANUAL DIFF FLAG NO
[2024-11-26 14:36] LABS: Basophils Percent Auto 0.3 % (0-2); Eosinophils Absolute Auto 0.1 X10*3/uL (0.0-0.4); Eosinophils Percent Auto 1.7 % (0-4); Hematocrit 37.6 % (37.0-47.0); Hemoglobin 12.4 g/dl (12.0-16.0); Imm Gran Abs Auto 0.02 X10*3/uL (0.00-0.03); Imm Gran Pct Auto 0.3 % (0.0-0.4); Lymphocytes Absolute Auto 2.2 X10*3/uL (1.2-4.9); Lymphocytes Percent Auto 34.7 % (20-40); Mean Corpuscular Hemoglobin 27.6 pg (27.0-33.0); Mean Corpuscular Volume 83.7 fL (80.0-98.0); Mean Platelet Volume 9.2 fL (9.4-12.3); Monocytes Absolute Auto 0.4 X10*3/uL (0.1-1.2); Monocytes Percent Auto 5.7 % (2-11); Neutrophils Absolute Auto 3.7 x10*3/uL (2.0-8.3); Neutrophils Percent Auto 57.3 % (45-73); Platelet Count 249 X10*3/uL (160-400); Red Blood Count 4.49 X10*6/uL (4.20-5.50); Red Cell Distribution Width 13.7 % (11.0-16.0); White Blood Count 6.5 X10*3/uL (4.8-10.8)
[2024-11-26 15:03] LABS: C Reactive Protein 0.17 mg/dL (< or = 0.50)
[2024-11-26 15:08] LABS: Rheumatoid Factor < 13.0 IU/mL (<15.0)
[2024-11-26 15:18] LABS: Erythrocyte Sedimentation Rate 9 MM/HR (0-20)
[2024-12-01 09:39] LABS: Anti Nuclear Antibody Screen NEGATIVE (NEGATIVE)
== END 2024-11-26 11:33 | disposition home or self-care (01) ==
LOC: HO.CHCLDS 11:32
PROVIDERS: Visit Provider Pediatrics
DX: M25.50 Pain in unspecified joint (principal)
CPT/HCPCS: 36415; 85025; 85652; 86038; 86140; 86431

== ENCOUNTER 2024-12-01 14:49 | Outpatient (REF) | payer MEDICAID, SELFPAY ==
--- NOTE | ~2024-12-01 | XR_ITS ---
CLINICAL HISTORY: chronic bilateral knee pain Right knee four views Comparison: 07/18/2022 Findings: No acute fracture or dislocation noted. No significant joint effusion identified. Degenerative change with joint space loss. This is most prominent in medial compartment. No soft tissue foreign body. Impression: No acute bony abnormality This document has been electronically signed by: Brendan Walter MD on 12/01/2024 21:27:54
--- OUTSIDE RECORDS SUMMARY | 2024-12-01 18:45 | XMS_ITS | Encounter Summary ---
Author Organization [employer] Address [address] [facility] [address] [place] [address] Care Team Providers Care Corrections Cadet Name Role Phone China Lemon MD Primary Care Provider [phone] Reason for Visit * Reason Comments Med Refill Encounter Details Date Type Department Care Team ([facility] st Contact Info) Description 07/23/2024 Refill [facility] [address] [place], [place] [phone] China Lemon MD [address] [place] [address] Muscle spasm Social History Tobacco Use Types Packs/Day Years Used Date Smoking Tobacco: Never Passive Smoke Exposure: Never Smokeless Tobacco: Never Depression Answer Date Recorded Patient Health Questionnaire-9 Score 3 12/30/2023 Patient Health Questionnaire-9 Score 3 12/30/2023 Last PHQ-9: Questionnaire Data Not on file 0 12/30/2023 Housing Stability Answer Date Recorded What is your housing situation today? I have geno vinson 07/29/[address] you li ve. Do you have problems with any of the following? None of the above 07/29/2023 Food Insecurity Answer Date Recorded Within the past 12 months, y ou worried that your food would run out before you got money to buy more: Never True 07/29/2023 Within the past 12 months,th e food you bought just didn't last and you didn't have enough money to get more: Never True Transportation Answer Date Recorded In the past 12 months, has l ack of transportation kept you from medical appts, meetings, work or from getting things needed for daily living? No 07/29/2023 Utilities Answer Date Recorded In the past 12 months, has t he electric, gas, oil or water company threatened to shut off services in your home? No 07/29/2023 Depression Answer Date Recorded Patient Health Questionnaire-2 Score 2 12/30/2023 Comments Unknown Sex and Gender Information Value Date Recorded Sex Assigned at Female 07/30/2022 10:39 AM EDT Legal Sex Female 10:39 AM EDT Gender Identity Female 07/30/2022 10:39 AM EDT Sexual Orientation Straight 07/30/2022 10 :39 AM EDT documented as of this encounter Plan of Treatment Not on file documented as of this encounter Visit Diagnoses Diagnosis Muscle spasm Spasm of muscle documented in this encounter Additional Health Concerns Assessment Noted Time PHQ-9 Depression Total Score: 3 12/30/19 24 9:17 AM EDT documented as of this encounter Care Teams Corrections Cadet Relationship Specialty Start Date End Date China Lemon MD [address] [place] [id number] PCP - General Family Medicine 10/30/21 documented as of this encounter
--- OUTSIDE RECORDS SUMMARY | 2024-12-01 18:45 | XMS_ITS | Encounter Summary ---
Author Organization [employer] Address [address] [facility] [address] [place] [address] Care Team Providers Care Audit Officer Name Role Phone China Lemon MD Primary Care Provider [phone] Reason for Visit * Reason Comments skin tags Encounter Details Date Type Department Care Team ([facility] st Contact Info) Description 11/17/2024 11:00 AM EST Office Visit [facility] [address] [place], [place] [phone] Greg Dubois MD [address] [place] [address] Skin tag (Primary Dx); Nevus Social History Tobacco Use Types Packs/Day Years [...] AM EDT documented as of this encounter Last Filed Vital Signs Vital Sign Reading Time Taken Comments Blood Pressure 140/78 11/17/2024 11:07 AM EST Pulse 78 11/17/2024 11:07 AM EST Temperature 36.8 ??C (98.2 ??F) 11/17/2024 11:[address] Respiratory Rate 20 11/17/2024 11:07 AM EST Oxygen Saturation 99% 11/17/2024 11:07 AM EST Inhaled Oxygen Concentration - - Weight 61 kg (134 lb 6.4 oz) 11/17/2024 11:07 AM EST Height 142.2 cm (4' 8 ) 11/17/2024 11:07 AM EST Body Mass Index 30.13 11/17/2024 11:07 AM EST documented in this encounter Progress Notes * Greg Dubois MD - 11/17/2024 11:00 AM ESTAssociated Order(s): Destruction of lesion Post-Procedure Diagnose(s): Skin tag Subjective Patient ID: Jennifer You is a 74 y.o. female who presents for skin tags. HPI Pt would like removal multiple skin tags of the neck line. Also complaining of a growth of the left posterior thigh present for several years. No increase in size of change in color reported. Patient Active Problem List Diagnosis Inactive tuberculosis Rash Varicose veins of both lower extremities with pain Primary hypertension Chronic pain of both knees Chronic pain of multiple joints Age-related osteoporosis without current pathological fracture Transaminitis Tubular adenoma Chronic right hip pain Osteoarthritis of left knee Lumbar spondylosis Lumbar radiculopathy, right Bilateral knee pain Asthma-COPD overlap syndrome (CMS/HCC) Chronic left shoulder pain Onychomycosis of toenail Decreased mobility and endurance Acute hip pain, left Functional urinary incontinence Pain of left middle finger Mass overlapping multiple quadrants of right breast Breast pain, left Current Outpatient Medications on File Prior to Visit Medication Sig Dispense Refill Acetaminophen Extra Strength 500 MG tablet Take 1 tablet by mouth every 6 (six) hours if needed (pain). 60 tablet 1 albuterol (Ventolin HFA) 108 (90 Base) MCG/ACT inhaler INHALE 2 PUFFS EVERY 4 HOURS NEEDED FOR WHEEZING 18 g 5 alendronate (Fosamax) 70 MG tablet take 1 tablet once a week with 6 to 8 oz of water 30 min before first food of day. do not lie down for 30 minutes 12 tablet 4 Artificial Tears 0.2-0.2-1 % solution Administer 1 drop into both eyes 2 times daily. 15 mL 3 atorvastatin (Lipitor) 80 MG tablet TAKE 1 TABLET BY MOUTH EVERY DAY AT BEDTIME 90 tablet 1 Calcium Carb-Cholecalciferol (Calcium 500 +D) 500-10 MG-MCG tablet Take 1 tablet by mouth 2 times daily. 180 tablet 4 celecoxib (CeleBREX) 100 MG capsule TAKE 1 CAPSULE BY MOUTH TWICE DAILY 60 capsule 5 cetirizine (ZyrTEC) 10 MG tablet Take 10 mg by mouth in the morning. clotrimazole-betamethasone (Lotrisone) cream APPLY TO AFFECTED AREA(S) AND SURROUNDING AREA(S) TWICE DAILY IN THE MORNING AND EVENING diclofenac (Cataflam) 50 MG tablet Take 1 tablet (50 mg) by mouth 3 times daily. 90 tablet 0 fluticasone (Flonase) 50 MCG/ACT nasal spray Administer 2 sprays into each nostril Once per day. Shake gently. Before first use, prime pump. After use, clean tip and replace cap. 16 g 1 GaviLAX 17 GM/SCOOP powder TAKE 17 GM MIXED IN 8 OUNCES OF WATER, COFFEE OR TEA ONCE DAILY Ketotifen Fumarate 0.035 % solution Apply 1 drop topically 2 times daily. 10 mL 11 lidocaine (Lidoderm) 5 % patch APPLY 1 PATCH TOPICALLY TO SKIN, LEAVE ON FOR 12 HOURS AND OFF FOR 12 HOURS DIRECTED 30 patch 1 losartan (Cozaar) 100 MG tablet TAKE 1 TABLET BY MOUTH EVERY DAY 90 tablet 1 ofloxacin (Ocuflox) 0.3 % ophthalmic solution Instill 10 drops each ear for 7 days. 10 mL 0 olopatadine (Pataday) 0.2 % ophthalmic solution Administer 1 drop into affected eye(s) in the morning. 2.5 mL 2 polyvinyl alcohol (Liquifilm Tears) 1.4 % ophthalmic solution ADMINISTER 1 DROP IN EACH EYE TWICE DAILY 15 mL 3 Umeclidinium [place] (Incruse Ellipta) 62.5 MCG/ACT aerosol powder INHALE 1 PUFF BY MOUTH EVERY DAYAT THE SAME TIME 30 each 5 No current facility-administered medications on file prior to visit. Allergies Allergen Reactions Amlodipine Swelling BLE swelling Review of Systems Constitutional: Negative for appetite change, chills and diaphoresis. Respiratory: Negative for cough, shortness of breath and stridor. Skin: Multiple skin lesions. Objective BP (!) 140/78 (BP Location: Right arm, Patient Position: Sitting, BP Cuff Size: Adult) Pulse 78 Temp 98.2 ??F (36.8 ??C) (Oral) Resp 20 Ht 4' 8 (1.422 m) Wt 134 lb 6.4 oz (61 kg) SpO2 99% BMI 30.13 kg/m?? Physical Exam Constitutional: General: She is not in acute distress. Appearance: Normal appearance. She is not ill-appearing, toxic-appearing or diaphoretic. Pulmonary: Effort: Pulmonary effort is normal. Skin: Comments: Multiple pedunculated 1-2 mm papillomas along the neck line. Neurological: Mental Status: She is alert. Patient ID: Jennifer You is a 74 y.o. female. Destruction of lesion Date/Time: 11/17/2024 12:56 PM Performed by: Greg Dubois MD Authorized by: Greg Dubois MD Consent: Consent obtained: Written Risks discussed: Infection, pain and poor cosmetic result Alternatives discussed: Observation Metaline protocol: Procedure explained and questions answered to patient or proxy's satisfaction: yes Relevant documents present and verified: no Test results available: no Imaging studies available: no Required blood products, implants, devices, and special equipment available: no Site/side marked: no Immediately prior to procedure, a time out was called: yes Patient identity confirmed: Verbally with patient Number of Lesions: 6 Comments: Multiple lesions of the neck line treated w/ electrodesiccation. Procedure was well tolerated. Assessment/Plan Diagnoses and all orders for this visit: Skin tag Nevus Comments: reassurance No acute intervention needed. Other orders - Destruction of lesion documented in this encounter Plan of Treatment Not on file documented as of this encounter Procedures Procedure Name Priority Date/Time Associated Diagnosis Comments DESTRUCTION OF LESION Routine 11/17/2024 12:56 PM EST Skin tag documented in this encounter Results * Destruction of lesion (11/17/2024 12:56 PM EST) Narrative Greg Dubois MD - 11/17/2024 12:56 PM EST Greg Dubois MD ? 11/17/2024 12:57 PM Destruction of lesion Date/Time: 11/17/2024 12:56 PM Performed by: Greg Dubois MD Authorized by: Greg Dubois MD ?? Consent: ??Consent obtained: ??Written ??Risks discussed: ??Infection, pain and poor cosmetic result ??Alternatives discussed: ??Observation Metaline protocol: ??Procedure explained and questions answered to patient or proxy's satisfaction: yes ?Relevant documents present and verified: no ?Test results available: no ?Imaging studies available: no ?Required blood products, implants, devices, and special equipment available: no ?Site/side marked: no ?Immediately prior to procedure, a time out was called: yes ?Patient identity confirmed: ??Verbally with patient Number of Lesions: 6 Comments: Multiple lesions of the neck line ??treated w/ electrodesiccation. Procedure was well tolerated. us Greg Dubois MD DERM PROCEDURE ORDERABLES F inal Result documented in this encounter Visit Diagnoses Diagnosis Skin tag- Primary Unspecified hypertrophic and atrophic condition of skin Nevus Benign neoplasm of skin, site unspecified documented in this encounter Additional Health Concerns Assessment Noted Time PHQ-9 Depression Total Score: 3 12/30/19 24 9:17 AM EDT documented as of this encounter Care Teams Audit Officer Relationship Specialty Start Date End Date China Lemon MD [address] [place] [address] PCP - General Family Medicine 10/30/21 documented as of this encounter
--- OUTSIDE RECORDS SUMMARY | 2024-12-01 18:45 | XMS_ITS | Encounter Summary ---
Author Organization [employer] Address [address] [place] [address] Care Team Providers Care Dehydrator Operator Name Role Phone China Lemon MD Primary Care Provider [phone] Encounter Details Date Type Department Care Team (Latest Contact Info) Description 11/17/2024 Travel Social History Tobacco Use Types Packs/Day Years [...] documented as of this encounter Visit Diagnoses Not on filedocumented in this encounter Additional Health Concerns Assessment Noted Time PHQ-9 Depression Total Score: 3 12/30/19 24 9:17 AM EDT documented as of this encounter Care Teams Dehydrator Operator Relationship Specialty Start Date End Date China Lemon MD [address] [place] [address] PCP - General Family Medicine 10/30/21 documented as of this encounter
--- OUTSIDE RECORDS SUMMARY | 2024-12-01 18:45 | XMS_ITS | Encounter Summary ---
Author Organization [employer] Address [address] [place] [address] Care Team Providers Care Associate Professor Of Pathology Name Role Phone China Lemon MD Primary Care Provider [phone] Encounter Details Date Type Department Care Team ([facility] st Contact Info) Description 11/01/2023 Telephone [facility] [address] [place] [address] China Lemon MD [address] [place], [place] [phone] Social History Tobacco Use Types Packs/Day Years Used Date Smoking Tobacco: Never Passive Smoke Exposure: Never Smokeless Tobacco: Never Depression Answer Date Recorded Patient Health Questionnaire-9 Score 4 12/26/2022 Housing Stability Answer Date Recorded What is your housing situation today? I have genonadege vinson 07/29/[address] you [...] Date Recorded Patient Health Questionnaire-2 Score 2 12/26/2022 Comments Unknown Sex and Gender Information Value [...] Assessment Noted Time PHQ-9 Depression Total Score: 4 12/27/19 23 3:31 PM EDT documented as of this encounter Care Teams Associate Professor Of Pathology Relationship Specialty Start Date End Date China Lemon MD [address] [place] [address] PCP - General Family Medicine 10/30/21 documented as of this encounter
--- OUTSIDE RECORDS SUMMARY | 2024-12-01 18:45 | XMS_ITS | Encounter Summary ---
Author Organization [employer] Address [address] [place] [address] Care Team Providers Care Debone Processing Supervisor Name Role Phone China Lemon MD Primary Care Provider Encounter Details Date Type Department Care Team ([facility] st Contact Info) Description 08/15/2023 Abstract [facility] [address] [place] [address] China Lemon MD [address] [place], [place] [phone] Social History Tobacco Use Types Packs/Day Years [...] documented as of this encounter Care Teams Debone Processing Supervisor Relationship Specialty Start Date End Date China Lemon MD [address] [place] [id number] PCP - General Family Medicine 10/30/21 documented as of this encounter
--- OUTSIDE RECORDS SUMMARY | 2024-12-01 18:46 | XMS_ITS | Clinical Summary ---
Author Organization [employer] Address [address] [facility] [address] [place] [address] Care Team Providers Care Metallurgical Analyst Name Role Phone China Lemon MD Primary Care Provider [phone] Allergies Active Allergy Reactions Criticality Noted Date Comments Amlodipine Swelling 02/28/2024 BLE swelling Medications GaviLAX 17 GM/SCOOP powder TAKE 17 GM MIXED IN 8 OUNCES OF WATER, COFFEE OR TEA ONCE DAILY 05/04/20 22 Active clotrimazole-be tamethasone (Lotrisone) cream APPLY TO AFFECTED AREA(S) AND SURROUNDING AREA(S) TWICE DAILY IN THE MORNING AND EVENING 08/15/20 22 Active cetirizine (ZyrTEC) 10 MG tablet Take 10 mg by mouth in the morning. 06/26/20 22 Active Calcium Carb-Cholecalci ferol (Calcium 500 +D) 500-10 MG-MCG tabletIndicatio ns:Age-related osteoporosis without current pathological fracture Take 1 tablet by mouth 2 times daily. 180 tablet 4 12/27/19 23 Active Umeclidinium [place] (Incruse Ellipta) 62.5 MCG/ACT aerosol powder INHALE 1 PUFF BY MOUTH EVERY DAY AT THE SAME TIME 30 each 5 01/19/20 23 Active albuterol (Ventolin HFA) 108 (90 Base) MCG/ACT inhaler INHALE 2 PUFFS EVERY 4 HOURS NEEDED FOR WHEEZING 18 g 5 02/22/20 23 Active olopatadine (Pataday) 0.2 % ophthalmic solution Administer 1 drop into affected eye(s) in the morning. 2.5 mL 2 08/08/20 23 Active diclofenac (Cataflam) 50 MG tablet Take 1 tablet (50 mg) by mouth 3 times daily. 90 tablet 11/13/19 24 Active Ketotifen Fumarate 0.035 % solution Apply 1 drop topically 2 times daily. 10 mL 11 02/28/20 24 Active Artificial Tears 0.2-0.2-1 % solution Administer 1 drop into both eyes 2 times daily. 15 mL 3 02/28/20 24 Active alendronate (Fosamax) 70 MG tabletIndicatio ns:Age-related osteoporosis without current pathological fracture take 1 tablet once a week with 6 to 8 oz of water 30 min before first food of day. do not lie down for 30 minutes 12 tablet 4 03/11/20 24 Active lidocaine (Lidoderm) 5 % patchIndication s:Muscle spasm APPLY 1 PATCH TOPICALLY TO SKIN, LEAVE ON FOR 12 HOURS AND OFF FOR 12 HOURS DIRECTED 30 patch 1 04/24/20 24 Active atorvastatin (Lipitor) 80 MG tablet TAKE 1 TABLET BY MOUTH EVERY DAY AT BEDTIME 90 tablet 1 06/22/20 24 Active fluticasone (Flonase) 50 MCG/ACT nasal sprayIndication s:Viral URI with cough Administer 2 sprays into each nostril Once per day. Shake gently. Before first use, prime pump. After use, clean tip and replace cap. 16 g 1 08/26/20 24 2024 Active ofloxacin (Ocuflox) 0.3 % ophthalmic solutionIndicat ions:Chronic non-infective otitis externa of both ears, unspecified type Instill 10 drops each ear for 7 days. 10 mL 08/26/20 24 Active polyvinyl alcohol (Liquifilm Tears) 1.4 % ophthalmic solution ADMINISTER 1 DROP IN EACH EYE TWICE DAILY 15 mL 3 09/07/20 24 Active losartan (Cozaar) 100 MG tablet TAKE 1 TABLET BY MOUTH EVERY DAY 90 tablet 1 09/21/20 24 Active celecoxib (CeleBREX) 100 MG capsule TAKE 1 CAPSULE BY MOUTH TWICE DAILY 60 capsule 5 10/05/19 25 Active Acetaminophen Extra Strength 500 MG tablet Take 1 tablet (500 mg) by mouth every 6 (six) hours if needed (pain). 60 tablet 1 11/26/19 25 Active Acetaminophen Extra Strength 500 MG tablet Take 1 tablet by mouth every 6 (six) hours if needed (pain). 60 tablet 1 10/29/19 24 2024 Discontinued(R eorder (will not trigger notification to Pharmacy)) Active Problems Problem Noted Date Diagnosed Date Pain of left middle finger 12/30/2023 Assessment & Plan (12/30/2023 5:20 PM EDT): -Ordered XR hand for further evaluation. Mass overlapping multiple quadrants of right laura ast 12/30/2023 Breast pain, left 12/30/2023 Assessment & Plan (12/30/2023 5:17 PM EDT): The patient's mammography revealed a mass suspected to be a fibroadenoma. The plan includes further evaluation to confirm the diagnosis and determine the appropriate management, which may involve surgical removal if symptomatic. Labs: BI mammogram diagnostic, BI US breast complete Decreased mobility and endurance 10/29/2023 Assessment & Plan (10/29/2023 5:22 PM EST): Per patient woke up on day with severe left hip pain and inability to ambulate, went to the ED where they evaluated her they didn't find any fractures or reasons for her immobility. DME for raised toilet seat and grab bars for bathroom Needs rolling walker and wheelchair Patient? s clinical findings support the need for a walker given the patient has a mobility limitation that significantly impairs her ability to participate in one or more mobility-related activities of daily living (MRADL). Patient has a minimal need for weight bearing and will benefit from a four-wheel walker (rollator) with a seat and a basket Medical condition: Severe arthritis left hip with immobility Weight: Wt Readings from Last 2 Encounters: 10/29/23 124 lb (56.2 kg) 10/18/23 126 lb (57.2 kg) Patient needs a walker to perform MRADL? s and the functional mobility deficit cannot be sufficiently resolved by use of a cane or crutches, given she will need assistance of both upper extremities for balance. The patient is willing to use a walker and the functional mobility deficit can be improved with the use of this device. . Patient? s clinical condition supports the need for a manual wheelchair because: The patient has a mobility limitation that significantly impairs her ability to participate in one or more mobility-related activities of daily living (MRADL). Medical condition: Severe left hip arthritis with immobility and inability to bear weight The patient? s mobility limitation cannot be sufficiently resolved by the use of a fitted cane or a walker. Use of a manual wheelchair will significantly improve the patient's ability to participate in MDRALs and patients will use it on a regular basis in the home. The patient has indicated that her home provides adequate access between rooms, maneuvering space, and surfaces for the use of the manual wheelchair. The patient has not expressed unwillingness to use the manual wheelchair. The patient has a caregiver who is available, willing and able to provide assistance with the wheelchair. Patient needs a lightweight wheelchair. (Patient cannot self-propel a standard wheelchair in the home, but can and does propel in a lightweight wheelchair). Acute hip pain, left 10/29/2023 Assessment & Plan (11/19/2023 3:55 PM EST): Patient still presents visit with complaints of acute L hip pain. She has an appointment with ortho on December 17. I have advised her to continue with physical therapy and at home exercises. I scheduled F/U with patient after she goes to her Ortho. appt. Future Appointments Date Time Provider Department Center 12/30/2023 9:15 AM China Lemon MD [facility] Assessment & Plan (10/29/2023 3:58 PM EST): Patient still presents visit with complaints of acute L hip pain, therefore, will be provided with medications to regulate pain. In addition, patient will be referred to Orthopaedics. Functional urinary incontinence 10/29/2023 Assessment & Plan (10/29/2023 5:17 PM EST): Jennifer You requires diapers given a history of functional incontinence, she has had appropriate referrals to evaluate for potential reversible factors contributing to her incontinence with partial/incomplete resolution of symptoms.The patient is able to use pull ups. The patient has the following risk factors for developing incontinence: high parity, hx of vaginal deliveries, menopause, impaired mobility, increasing age, obesity. Patient is currently wheelchair bound recently and has difficulties getting to the bathroom. Will also benefit of a commode Patient will benefit from commode use given she is confined to floor given she has severe hip pain and is not able to walk, suddenly wheelchair bound. Patient will benefit of commode use given she is confined to one level of the home that does not provide a toilet on that level Onychomycosis of toenail 09/05/2023 Assessment & Plan (09/05/2023 3:33 PM EST): Patient that presented visit with complaints of Onychomycosis of toenail will be sent for labs: Hepatic Function Panel. Chronic left shoulder pain 08/08/2023 Assessment & Plan (09/05/2023 3:33 PM EST): Patient that presented visit for a L Shoulder Injection due to Shoulder Pain was given the risks and possibilities that the injection might have during and after. However, patient stated NOT wanting to move forward with injection procedure, due to feeling uncomfortable. Assessment & Plan (08/08/2023 3:46 PM EST): Patient will be sent for L shoulder X-Rays. Recommended patient to get shoulder injections if pain still persist: patient accepted. Therefore, possible L Shoulder Injection procedure appointment will be scheduled. Tubular adenoma 04/24/2023 Chronic right hip pain 04/24/2023 Osteoarthritis of left knee 04/24/2023 Lumbar spondylosis 04/24/2023 Lumbar radiculopathy, right 04/24/2023 Assessment & Plan (04/25/2023 4:18 PM EDT): Patient with persistent right sided lumbar back pain. Will refer to physical therapy for further evaluation. Bilateral knee pain 04/24/2023 Asthma-COPD overlap syndrome 04/24/2023 Assessment & Plan (03/02/2024 2:02 AM EDT): While reviweing medications, pt stated she no longer uses Asmanex HFA 200 MCG/ACT aerosol. -Medication was discontinued Assessment & Plan (11/19/2023 3:54 PM EST): I noticed patient had a cough but reported it was due to the cold weather. Transaminitis 03/04/2023 Assessment & Plan (04/25/2023 4:19 PM EDT): Patient with transiminitis. Will send for abdominal ultrasound for further evaluation. Inactive tuberculosis 12/26/2022 Rash 12/26/2022 Primary hypertension 12/26/2022 Assessment & Plan (03/02/2024 1:58 AM EDT): Pt's BP at the time of visit was 145/80. Pt's Amlodipine was discontinued and was prescribed Losartan (Cozaar) 100 MG tablet. -Advised pt to take it at night. Assessment & Plan (10/29/2023 5:15 PM EST): Patient reports she is not using losartan but amlodipine for her BP, it was initially stopped given she reports lower extremity swelling but reports that this is not happening and will want to cont with amlodipine. Target < 140/90 mmHg Assessment & Plan (08/08/2023 3:38 PM EST): Controlled: patient will have a change of blood pressure medication: will stop Amlodipine, and start Losartan. Advised to keep monitoring blood pressure readings at home. Assessment & Plan (02/28/2023 9:59 AM EDT): Close to controlled. Continue with current regimen as prescribed. Will follow up to recheck Blood pressure. Will send labs to check levels. Assessment & Plan (12/26/2022 4:26 PM EDT): Elevated, will schedule for nursing followup, if not improved will incr amlodipine to 10 mg, consider adding thiazide diuretic. - If SBP < 140/DBP <90 mmHg in more than 75% of home self-monitoring, continue current medication regimen and make f/u with PCP in 3 month - If SBP >140-165/DBP >90-115 mmHg ,incr amlodipine to 10 mg and f/u with PCP in 1 month - If SBP > 165/ DBP> 115 mmHg, consult with covering provider - If SBP <90/DBP <50 mmHg, consult with covering provider. Chronic pain of both knees 12/26/2022 Assessment & Plan (12/26/2022 4:22 PM EDT): Patient? s clinical findings support the need for a walker given the patient has a mobility limitation that significantly impairs her ability to participate in one or more mobility-related activities of daily living (MRADL). Patient has a minimal need for weight bearing and will benefit from a four-wheel walker (rollator) with a seat and a basket Medical condition: Bilateral knee arthritis Weight: Wt Readings from Last 2 Encounters: 12/26/22 116 lb 9.6 oz (52.9 kg) 08/15/22 123 lb 9.6 oz (56.1 kg) Patient needs a walker to perform MRADL? s and the functional mobility deficit cannot be sufficiently resolved by use of a cane or crutches, given she will need assistance of both upper extremities for balance. The patient is willing to use a walker and the functional mobility deficit can be improved with the use of this device. Will also send analgesics and pain management Chronic pain of multiple joints 12/26/2022 Age-related osteoporosis wit hout current pathological fracture 12/26/2022 Assessment & Plan (12/26/2022 4:23 PM EDT): Will start patient on alendronate. Repeat DEXA in 1 yr Varicose veins of both lower extremities with pa in 10/12/2021 Assessment & Plan (08/08/2023 4:23 PM EST): Will resent compression stockings, per patient insurance only approves 15-20 mmHg, discussed with patient that she can buy 20-30 mmHg. Will request DME specialist to re-generate prescription for patient. Assessment & Plan (12/26/2022 4:23 PM EDT): Not responsive to compression stockings, will refer to vascular surgery Encounters Date Type Department Care Team Description 11/26/2024 11:00 AM EST Office Visit [facility] [address] [place] [address] Mckayla Martinez MD Polyarthralgia (Primary Dx); Encounter for immunization; Chronic pain of both knees; Primary hypertension 11/26/2024 Travel 11/17/2024 11:00 AM EST Office Visit [facility] [address] [place] [address] Greg Dubois MD Skin tag (Primary Dx); Nev 11/17/2024 Travel 10/29/2024 Travel 10/03/2024 Refill [facility] [address] [place] [address] China Lemon MD 09/21/2024 Refill [facility] [address] [place] [address] China Lemon MD 09/15/2024 Travel 09/06/2024 Refill [facility] [address] [place] [address] China Lemon MD from Last 3 Months Immunizations Name Administration Dates Next Due Influenza High-dose Quadrivalent Preservative Fr ee 08/08/2023,06/13/2022 Influenza, seasonal, injectable, preservative fr ee 11/26/2024 Stream[employer] SARS-CoV-2 Vaccination 12/27/2020 [employer] Covid-19 Vaccine 12+ Bivalent 08/01/2022 Pneumococcal Conjugate PCV 13 12/04/2021 Pneumococcal Conjugate PCV 20 08/08/2023 Tdap 08/08/2023 Zoster, Recombinant 03/01/2022,12/08/2021 Social History Tobacco Use Types Packs/Day Years Used Date Smoking Tobacco: Never Passive Smoke Exposure: Never Smokeless Tobacco: Never Tobacco Cessation:Counseling Given: Not Answered Depression Answer Date Recorded Patient Health Questionnaire-9 Score 3 12/30/2023 Patient Health Questionnaire-9 Score 3 12/30/2023 Last PHQ-9: Questionnaire Data Not on file 0 12/30/2023 Housing Stability Answer Date Recorded What is your housing situation today? I have geno vinson 11/26/[address] you li ve. Do you have problems with any of the following? None of the above 11/26/2024 Food Insecurity Answer Date Recorded Within the past 12 months, y ou worried that your food would run out before you got money to buy more: Never True 11/26/2024 Within the past 12 months,th e food you bought just didn't last and you didn't have enough money to get more: Never True Transportation Answer Date Recorded In the past 12 months, has l ack of transportation kept you from medical appts, meetings, work or from getting things needed for daily living? No 11/26/2024 Utilities Answer Date Recorded In the past 12 months, has t he electric, gas, oil or water company threatened to shut off services in your home? No 11/26/2024 Depression Answer Date Recorded Patient Health Questionnaire-2 Score 2 12/30/2023 Internet Access Answer Date Recorded Internet Access Q1 Yes 11/26/2024 Internet Access Q2 Not on file 11/26/2024 Comments Unknown Sex and Gender Information Value Date Recorded Sex Assigned at Female 07/30/2022 10:39 AM EDT Legal Sex Female 10:39 AM EDT Gender Identity Female 07/30/2022 10:39 AM EDT Sexual Orientation Straight 07/30/2022 10 :39 AM EDT Last Filed Vital Signs Vital Sign Reading Time Taken Comments Blood Pressure 156/85 11/26/2024 11:02 AM EST Pulse 82 11/26/2024 11:02 AM EST Temperature 36.6 ??C (97.9 ??F) 11/26/2024 11:[address] Respiratory Rate 20 11/26/2024 11:02 AM EST Oxygen Saturation 97% 11/26/2024 11:02 AM EST Inhaled Oxygen Concentration - - Weight 59.9 kg (132 lb) 11/26/2024 11:02 AM EST Height 142.2 cm (4' 8 ) 11/26/2024 11:02 AM EST Body Mass Index 29.59 11/26/2024 11:02 AM EST Plan of Treatment Health Maintenance Due Date Last Done Comments CT Colonography 1952 FIT DNA/Cologuard 1952 FIT 1952 FOBT 1950 Sigmoidoscopy 1952 RSV Patients and Patients Aged 60 years or older (1 - Risk 60-74 years 1-dose series) 2012 COVID-19 Vaccine ( season) 2024 08/01/2022, 12/27/2020 Depression Screening 12/29/2024 12/30/2023, 12/30/19 24 Colonoscopy 05/04/2025 05/04/2022 Colorectal Cancer Screening 05/04/2025 Alcohol/Substance Use Screening 11/26/2025 11/26/2024 SDOH Screening 11/26/2025 11/26/2024 Tobacco Screening 11/26/2025 11/26/2024 Mammogram 02/03/2026 02/04/2024, 11/29, 12/18/2022, Additional history exists Lipid Panel 03/01/2028 03/01/2023, 10/30/2021 DTaP/Tdap/Td Vaccines (2 - Td or Tdap) 08/08/2033 08/08/2023 Hepatitis C Screening Completed 10/30/2021 Zoster Vaccines Completed 03/01/2022, 12/08/2021 Pneumococcal Vaccine: 50+ Years Completed 08/08/2023, 12/04/2021 Influenza Vaccine Completed 11/26/2024, , 06/13/2022 HIB Vaccines Aged Out No longer eligi ble based on patient's age to complete this topic HPV Vaccines Aged Out No longer eligi ble based on patient's age to complete this topic Hepatitis A Vaccines Aged Out No long er eligible based on patient's age to complete this topic Hepatitis B Vaccines Aged Out No long er eligible based on patient's age to complete this topic IPV Vaccines Aged Out No longer eligi ble based on patient's age to complete this topic Meningococcal Vaccine Aged Out No lissy behzad eligible based on patient's age to complete this topic RSV under 20 months Aged Out No longe r eligible based on patient's age to complete this topic Rotavirus Vaccines Aged Out No longer eligible based on patient's age to complete this topic Procedures Procedure Name Priority Date/Time Associated Diagnosis Comments CBC WITH AUTO DIFFERENTIAL Routine 11/26/2024 11:54 AM EST Polyarthralgia VÍCTOR SCREEN, IFA, W/REFL TITER AND PATTERN Routine 11/26/2024 11:34 AM EST Polyarthralgia RHEUMATOID FACTOR Routine 11/26/2024 11: 34 AM EST Polyarthralgia SED RATE BY MODIFIED WESTERGREN Routine 11/26/2024 11:34 AM EST Polyarthralgia C-REACTIVE PROTEIN Routine 11/26/2024 11 :34 AM EST Polyarthralgia DESTRUCTION OF LESION Routine 11/17/2024 12:56 PM EST Skin tag BI US BREAST LIMITED BILATERAL Routine 02/04/2024 2:50 PM EDT LIPID PANEL, STANDARD Routine 03/01/2023 8:06 AM EDT Primary hypertension HM COLONOSCOPY Routine 05/04/2022 ZZZ HISTORICAL HEPATITIS C AB W/REFL TO HCV RNA, QN, PCR Routine 10/30/2021 10:15 AM EST from Last 3 Months or Most Recently Relevant to Health Maintenance Results * (ABNORMAL) CBC auto differential (11/26/2024 11:54 AM EST) White Blood Count 6.5 4.8 - 10.8 X10*3/uL [facility] Red Blood Count 4.49 4.20 - 5.50 X10*6/uL [facility] Hemoglobin 12.4 12.0 - 16.0 g/dl [facility] Hematocrit 37.6 37.0 - 47.0 % [facility] Mean Corpuscular Volume 83.7 80.0 - 98.0 fL [facility] Mean Corpuscular Hemoglobin 27.6 27.0 - 33.0 pg [facility] Mean Corpuscular HGB Conc 33.0 31.0 - 35.0 g/dl [facility] Red Cell Distribution Width 13.7 11.0 - 16.0 % [facility] Platelet Count 249 160 - 400 X10*3/uL [facility] Mean Platelet Volume 9.2(L) 9.4 - 12.3 fL [facility] Neutrophils Percent Auto 57.3 45 - 73 % [facility] Imm Gran Pct Auto 0.3 0.0 - 0.4 % [facility] Lymphocytes Percent Auto 34.7 20 - 40 % [facility] Monocytes Percent Auto 5.7 2 - 11 % [facility] Eosinophils Percent Auto 1.7 0 - 4 % [facility] Basophils Percent Auto 0.3 0 - 2 % [facility] NRBC Pct Auto 0.0 0.0 - 0.2 /100WBC [facility] Neutrophils Absolute Auto 3.7 2.0 - 8.3 x10*3/uL [facility] Imm Gran Abs Auto 0.02 0.00 - 0.03 X10*3/uL [facility] Lymphocytes Absolute Auto 2.2 1.2 - 4.9 X10*3/uL [facility] Monocytes Absolute Auto 0.4 0.1 - 1.2 X10*3/uL [facility] Eosinophils Absolute Auto 0.1 0.0 - 0.4 X10*3/uL [facility] Basophils Absolute Auto 0.0 0.0 - 0.2 X10*3/uL [facility] NRBC Abs Auto 0.000 0.0 - 0.012 X10*3/uL [facility] Blood Venous blood specimen / Unknown 11/26/2024 11:54 AM EST 11/26/2024 2:20 PM EST us Mckayla Martinez MD LAB BLOOD ORDERABLES Final Re sult [facility] [address] [place] [phone] * Sed Rate by Modified Rachna (11/26/2024 11:34 AM EST) Erythrocyte Sedimentation Rate 9 0 - 20 MM/HR [facility] Comment:Patients with polycy themia and many hemoglobin abnormalitiesmay have depressed sed rates whereas patients with anemiamay have elevated sed rates. Blood Venous blood specimen / Unknown 11/26/2024 11:34 AM EST 11/26/2024 2:20 PM EST Mckayla Martinez MD LAB BLOOD ORDERABLES Final Re sult Performing Organization Address [facility] Co de Phone Number [facility] [address] [place] [phone] * Rheumatoid Factor (11/26/2024 11:34 AM EST) Rheumatoid Factor <13.0 <15.0 IU/mL [facility] Blood Venous blood specimen / Unknown 11/26/2024 11:34 AM EST 11/26/2024 2:20 PM EST Mckayla Martinez MD LAB BLOOD ORDERABLES Final Re sult Performing Organization Address [facility] de Phone Number [facility] [address] [place] [phone] * C-reactive Protein (11/26/2024 11:34 AM EST) C Reactive Protein 0.17 < or = 0.50 mg/dL [facility] Blood Venous blood specimen / Unknown 11/26/2024 11:34 AM EST 11/26/2024 2:20 PM EST Mckayla Martinez MD LAB BLOOD ORDERABLES Final Re sult Performing Organization Address [facility] de Phone Number [facility] [address] [place] [phone] * VÍCTOR Screen,IFA, with Reflex to Titer and Pattern (11/26/2024 11:34 AM EST) Anti Nuclear Antibody Screen NEGATIVE NEGATIVE [facility] Comment:VÍCTOR IFA is a first l ine screen for detecting thepresence of up to approximately 150 autoantibodies invarious autoimmune diseases. A negative VÍCTOR IFA resultsuggests an VÍCTOR-associated autoimmune disease is notpresent at this time, but is not definitive. If thereis high clinical suspicion for Sjogren's syndrome,testing for anti-SS-A/Ro antibody should be considered.Anti-Elvie-1 antibody should be considered for clinicallysuspected inflammatory myopathies.AC-0: NegativeInternational Consensus on VÍCTOR Patterns(https://doi.org/10.1515/bioo-3193-2282)For additional information, please refer tohttp://education.[employer]/faq/QKW409(This link is being provided for informational/educational purposes only.)THIS TEST WAS PERFORMED AT:[facility] [place] [id number] SABA MD VÍCTOR Titer TNP [facility] VÍCTOR Pattern TNP [facility] VÍCTOR TITER 2 (REF LAB) TNP [facility] VÍCTOR Pattern 2 TNP [facility] VÍCTOR TITER 3 TNP [facility] VÍCTOR PATTERN 3 TNP [facility] Blood Venous blood specimen / Unknown 11/26/2024 11:34 AM EST 11/26/2024 2:20 PM EST us Mckayla Martinez MD LAB BLOOD ORDERABLES Final Re sult [facility] [address] [place] [phone] * Destruction of lesion (11/17/2024 12:56 PM EST) Narrative Greg Dubois MD - 11/17/2024 12:56 PM EST Greg Dubois MD ? 11/17/2024 12:57 PM Destruction of lesion Date/Time: 11/17/2024 12:56 PM Performed by: Greg Dubois MD Authorized by: Greg Dubois MD ?? Consent: ??Consent obtained: ??Written ??Risks discussed: ??Infection, pain and poor cosmetic result ??Alternatives discussed: ??Observation [facility] protocol: ??Procedure explained and questions answered to [...] MD DERM PROCEDURE ORDERABLES F inal Result * BI US Breast Limited Bilateral (02/04/2024 2:50 PM EDT) Anatomical Region Laterality Modality Breast Bilateral Ultrasound 02/04/2024 2:50 PM EDT Narrative 02/04/2024 3:23 PM EDT ? [facility] ? [address] ?[place] [address] ? Ultrasound Report ? Signed ? Patient: Uribe Dehincapie,Jennifer ? MR#: [id number] ? : 1950 ?Acct:[id number] ? Age/Sex: 73 / F ?ADM Date: 02/04/24 ? Loc: HO.MAMMO ? Attending Dr: China Lemon MD ? Ordering Physician: China Lemon MD ?? Date of Service: 02/04/24 ?? Procedure(s): US breast BI limited mamm only ?? Accession Number(s): [id number] ? cc: China Lemon MD ? EXAMINATION: ?? US DIAGNOSTIC ULTRASOUND BREAST, BILATERAL ? CLINICAL INFORMATION: ? 73-year-old female, initially presented for screening bilateral ?? mammography, voiced no complaints, and then subsequently one day later ?? at the [facility], the patient complained of bilateral breast pain ?? and the patient's provider felt palpable masses in both breasts; in the ?? right breast at 6:00 was a 3 x 2 cm palpable mass, and in the left ?? breast at 3:00 was a 2.2 x 1.3 cm palpable mass. The patient's daughter ?? could not bring the patient back until February 03 (today) for a diagnostic ?? ultrasound. At this time, the patient now denies pain, and denies any ?? palpable abnormalities. ? COMPARISON: ?? Bilateral diagnostic mammography 12/23/2023, 12/18/2022, 11/21/2021 ?? (new baseline). ? TECHNIQUE: ?? Ultrasound of the both breasts was performed with real-time bustillos scale ?? imaging and color Doppler. The right breast was scanned from the 4:00 ?? to 8:00 axis to include the 6:00 axis, 3 x 2 cm palpable mass. The left ?? breast was scanned from the 1:00 to 5:00 axis, to include the 3:00, 2.2 ?? x 1.3 cm palpable mass. ? FINDINGS: ?? There is no focal suspicious finding. ??There is no solid mass, ?? architectural abnormality, duct ectasia, or edema in the soft tissue ?? planes. There are no cystic abnormalities. ? There are no sonographic correlates to the bilateral foci of palpable ?? concern. ? US/US breast BI limited mamm only ?? IMPRESSION: ?? -No findings suspicious for malignancy in either breast. ? -There are stable benign findings in both breasts on mammography. There ?? are no abnormal findings on sonography. ? -No mammographic or ultrasonographic correlates to the bilateral ?? palpable foci of concern or pain. Recommend clinical management. ? -Otherwise, recommend the patient return to routine annual mammographic ?? screening. ? ASSESSMENT: ? BI-RADS 2: Benign ? RECOMMENDATION: ?? 1. Patient should be managed based on the clinical impression. ?? Decision to proceed with biopsy should be based on clinical grounds and ?? degree of clinical concern. ? 2. Otherwise, routine annual screening mammography. ? This patient's information was entered into a reminder system with a ?? target due date for their next mammogram. ? Dictated By: ?rBuce De Leon MD ? Signed By: ?<Electronically signed by Bruce De Leon MD in OV> ?02/04/24 1520 ? DD/ 1450 ? TD/TT: ? Manager Custom: ? Procedure Note Subhash, Nilam - 02/04/2024 [facility] [address] [place] [address] [place] [address] Ultrasound Report Signed Patient: Jennifer Brewster MR#: [id number] : 2Acct:[id number] Age/Sex: 73 / FADM Date: 02/04/24 Loc: HO.MAMMO Attending Dr: China Lemon MD Ordering Physician: China eLmon MD Date of Service: 02/04/24 Procedure(s): US breast BI limited mamm only Accession Number(s): [id number] cc: China Lemon MD EXAMINATION: US DIAGNOSTIC ULTRASOUND BREAST, BILATERAL CLINICAL INFORMATION: 73-year-old female, initially presented for screening bilateral mammography, voiced no complaints, and then subsequently one day later at the [facility], the patient complained of bilateral breast pain and the patient's provider felt palpable masses in both breasts; in the right breast at 6:00 was a 3 x 2 cm palpable mass, and in the left breast at 3:00 was a 2.2 x 1.3 cm palpable mass. The patient's daughter could not bring the patient back until February 03 (today) for a diagnostic ultrasound. At this time, the patient now denies pain, and denies any palpable abnormalities. COMPARISON: Bilateral diagnostic mammography 12/23/2023, 12/18/2022, 11/21/2021 (new baseline). TECHNIQUE: Ultrasound of the both breasts was performed with real-time bustillos scale imaging and color Doppler. The right breast was scanned from the 4:00 to 8:00 axis to include the 6:00 axis, 3 x 2 cm palpable mass. The left breast was scanned from the 1:00 to 5:00 axis, to include the 3:00, 2.2 x 1.3 cm palpable mass. FINDINGS: There is no focal suspicious finding. There is no solid mass, architectural abnormality, duct ectasia, or edema in the soft tissue planes. There are no cystic abnormalities. There are no sonographic correlates to the bilateral foci of palpable concern. US/US breast BI limited mamm only IMPRESSION: -No findings suspicious for malignancy in either breast. -There are stable benign findings in both breasts on mammography. There are no abnormal findings on sonography. -No mammographic or ultrasonographic correlates to the bilateral palpable foci of concern or pain. Recommend clinical management. -Otherwise, recommend the patient return to routine annual mammographic screening. ASSESSMENT: BI-RADS 2: Benign RECOMMENDATION: 1. Patient should be managed based on the clinical impression. Decision to proceed with biopsy should be based on clinical grounds and degree of clinical concern. 2. Otherwise, routine annual screening mammography. This patient's information was entered into a reminder system with a target due date for their next mammogram. Dictated By: Bruce De Leon MD Signed By: <Electronically signed by Bruce De Leon MD in OV> 02/04/24 1520 DD/ 1450 TD/TT: Manager Custom: us China Lemon MD IM US PROCEDURES Final Resul t * Lipid Panel, Standard (03/01/2023 8:06 AM EDT) Cholesterol, Total 189 <200 mg/dL [facility] HDL Cholesterol 67 > OR = 50 mg/dL [facility] Triglycerides 143 <150 mg/dL [facility] LDL Cholesterol 98 mg/dL (calc) [facility] Comment: Reference range: <100 Desirable range <100 mg/dL for primary prevention; ?? <70 mg/dL for patients with CHD or diabetic patients with > or = 2 CHD risk factors. LDL-C is now calculated using the Alexis-Evy calculation, which is a validated novel method providing better accuracy than the Friedewald equation in the estimation of LDL-C. Alexis SS et al. KHOA. 2013;310(19): 7192-3908 (http://education.Mojo Mobility/faq/ZNI005) Chol/HDLC Ratio 2.8 <5.0 (calc) [facility] Non-HDL Cholesterol 122 <130 mg/dL (calc) [facility] Comment: For patients with diabetes plus 1 major ASCVD risk factor, treating to a non-HDL-C goal of <100 mg/dL (LDL-C of <70 mg/dL) is considered a therapeutic option. Blood Venous blood specimen / Unknown 03/01/2023 8:06 AM EDT 03/01/2023 8:07 AM EDT Narrative [facility] - 03/01/2023 8:14 PM EDT FASTING:YES FASTING: YES China Lemon MD LAB BLOOD ORDERABLES Final Re sult [facility] [address], [place] [address] [facility] [address] [place] [phone] * (ABNORMAL) Colonoscopy (05/04/2022) Colonoscopy Abnormal(A ) Normal Narrative Shilpi Barrera - 05/04/2022 Tubular adenoma, f/up in 3 yrs, had colonoscopy in [facility] Historical Provider HEALTH MAINTENANCE Edited Result - Final * HEPATITIS C AB W/REFL TO HCV RNA, QN, PCR (10/30/2021 10:15 AM EST) HEPATITIS C ANTIBODY NON-REACT BETTE NON-REACT [facility]TE [facility] INDEX 0.10 <1.00 [facility] Comment: ?? HCV antibody was non-reactive. There is no laboratory ?? evidence of HCV infection. ?? In most cases, no further action is required. However, if recent HCV exposure is suspected, a test for HCV RNA (test code 85137) is suggested. ?? For additional information please refer to http://education.Tedcas.Credorax/faq/KDY10y8 (This link is being provided for informational/ educational purposes only.) ?? 10/30/2021 10:1 5 AM EST us China Lemon MD HISTORICAL/NON ORDERABLE LABS Final Result [facility] [address] from Last 3 Months or Most Recently Relevant to Health Maintenance Insurance [employer] Care Teams Metallurgical Analyst Relationship Specialty Start Date End Date China Lemon MD [address] [place] [phone] PCP - General Family Medicine 10/30/21
--- OUTSIDE RECORDS SUMMARY | 2024-12-01 18:46 | XMS_ITS | Encounter Summary ---
Author Organization [employer] Address [address] [place] [address] Care Team Providers Care Child Guidance Counselor Name Role Phone China Lemon MD Primary Care Provider [phone] Encounter Details Date Type Department Care Team (Latest Contact Info) Description 11/26/2024 Travel Social History Tobacco Use Types Packs/Day [...] documented as of this encounter Care Teams Child Guidance Counselor Relationship Specialty Start Date End Date China Lemon MD [address] [place] [address] PCP - General Family Medicine 10/30/21 documented as of this encounter
--- OUTSIDE RECORDS SUMMARY | 2024-12-01 18:46 | XMS_ITS | Encounter Summary ---
Author Organization [employer] Address [address] [facility] [address] [place] [address] Care Team Providers Care Ui Software Engineer Name Role Phone China Lemon MD Primary Care Provider [phone] Encounter Details Date Type Department Care Team (Latest Contact Info) Description 11/26/2024 11:00 AM EST Office Visit [facility] [address] [place], [place] [phone] Mckayla Martinez MD [address] [place], [place] [phone] Polyarthralgia (Primary Dx); Encounter for immunization; Chronic pain of both knees; Primary hypertension Social History Tobacco Use Types Packs/Day Years [...] Mass Index 29.59 11/26/2024 11:02 AM EST documented in this encounter Progress Notes * Mckayla Martinez MD - 11/26/2024 11:00 AM EST Subjective Patient ID: Jennifer Uribe Sydnialeena is a 74 y.o. female who presents for f/u chronic conditions. Jennifer is a 74 y/o female patient of with past medical history of hypertension, osteoporosis and osteoarthritis here for bilateral knee pain.Had back surgery last summer and was told could get knee knee treatments later on. C/O multiple arthralgias of knees, shoulders, elbows etc.. Patient has arthritis as well as Celebrex and her med list but per daughter she rarely takes either of those medications. Patient also states she received a knee injection in the past but feels like the knee pain got worse after the injection instead of better so she is afraid of getting another injection. Patient basically wants to know why she has so many arthralgias. Denies any recent falls. Her BP is elevated today but states it is always good when at home when she checks it. Review of Systems Constitutional: Negative for activity change, chills, fever and unexpected weight change. Respiratory: Negative for cough, shortness of breath and wheezing. Cardiovascular: Negative for chest pain, palpitations and leg swelling. Gastrointestinal: Negative for abdominal pain and blood in stool. Endocrine: Negative for polydipsia and polyuria. Genitourinary: Negative for decreased urine volume, difficulty urinating, dysuria and hematuria. Musculoskeletal: Positive for arthralgias. Negative for gait problem and joint swelling. Skin: Negative for color change and rash. Neurological: Negative for dizziness and headaches. Hematological: Negative for adenopathy. Psychiatric/Behavioral: Negative for dysphoric mood, hallucinations, sleep disturbance and suicidalideas. The patient is not nervous/anxious. Objective BP (!) 156/85 (BP Location: Left arm, Patient Position: Sitting, BP Cuff Size: Adult) Pulse 82 Temp 97.9 ??F (36.6 ??C) (Oral) Resp 20 Ht 4' 8 (1.422 m) Wt 132 lb (59.9 kg) SpO2 97% BMI 29.59 kg/m?? Physical Exam Vitals reviewed. Constitutional: General: She is not in acute distress. Appearance: Normal appearance. She is not ill-appearing. HENT: Head: Normocephalic. Right Ear: Tympanic membrane and ear canal normal. Left Ear: Tympanic membrane and ear canal normal. Nose: Nose normal. Mouth/Throat: Mouth: Mucous membranes are moist. Pharynx: No oropharyngeal exudate or posterior oropharyngeal erythema. Eyes: Extraocular Movements: Extraocular movements intact. Conjunctiva/sclera: Conjunctivae normal. Pupils: Pupils are equal, round, and reactive to light. Cardiovascular: Rate and Rhythm: Normal rate and regular rhythm. Pulses: Normal pulses. Heart sounds: Normal heart sounds. Pulmonary: Effort: Pulmonary effort is normal. No respiratory distress. Breath sounds: Normal breath sounds. Abdominal: Palpations: Abdomen is soft. Musculoskeletal: General: Normal range of motion. Cervical back: Normal range of motion. Right knee: Deformity present. No erythema. Tenderness present. Left knee: Deformity present. No erythema. Tenderness present. Right lower leg: No edema. Left lower leg: No edema. Skin: General: Skin is warm. Capillary Refill: Capillary refill takes less than 2 seconds. Findings: No rash. Neurological: General: No focal deficit present. Mental Status: She is alert and oriented to person, place, and time. Psychiatric: Mood and Affect: Mood normal. Behavior: Behavior normal. Thought Content: Thought content normal. Judgment: Judgment normal. Assessment/Plan Diagnoses and all orders for this visit: Polyarthralgia Comments: Most likely osteoarthritis but will do blood work to rule out other etiology. Call with results when available. Follow-up with PCP will be scheduled as well. Orders: - CBC auto differential; Future - C-reactive Protein; Future - Sed Rate by Modified Westergren; Future - Rheumatoid Factor; Future - VÍCTOR Screen,IFA, with Reflex to Titer and Pattern; Future - XR Knee 4+ Views Left; Future - XR Knee 4+ Views Right; Future Encounter for immunization Comments: Flu vaccine received today as she is due without complication. Orders: - FLU VACCINE TRIVALENT (Fluarix) 6 mo + Chronic pain of both knees Comments: Bilateral knee x-rays ordered as well as labs. Most likely she has severe DJD of the knees. Refilled Tylenol and advised that she can start taking Celebrex that she already has at home and was prescribed by her PCP for this. Patient changes her mind we can refer to Ortho again. Primary hypertension Comments: BP elevated during visit. Per patient as well as daughter her blood pressure is always normal at home. Advised to inform us if this changes so that her meds can be adjusted. Follow-up with PCP will be scheduled. Continue low-salt diet. Other orders - Acetaminophen Extra Strength 500 MG tablet; Take 1 tablet (500 mg) by mouth every 6 (six) hours if needed (pain). documented in this encounter Plan of Treatment Scheduled Orders Name Type Priority Associated Diagnoses Orde r Schedule XR Knee 4+ Views Left Imaging Routine Polyarthralgia Expected: 11/26/2024, Expires: 11/26/2025 XR Knee 4+ Views Right Imaging Routine Polyarthralgia Expected: 11/26/2024, Expires: 11/26/2025 documented as of this encounter Procedures Procedure Name Priority Date/Time Associated Diagnosis Comments CBC WITH AUTO DIFFERENTIAL Routine 11/26/2024 11:54 AM EST Polyarthralgia SED RATE BY MODIFIED WESTERGREN Routine 11/26/2024 11:34 AM EST Polyarthralgia RHEUMATOID FACTOR Routine 11/26/2024 11: 34 AM EST Polyarthralgia C-REACTIVE PROTEIN Routine 11/26/2024 11 :34 AM EST Polyarthralgia VÍCTOR SCREEN, IFA, W/REFL TITER AND PATTERN Routine 11/26/2024 11:34 AM EST Polyarthralgia documented in this encounter Results * (ABNORMAL) CBC auto differential (11/26/2024 11:54 AM EST) White Blood Count 6.5 4.8 - 10.8 X10*3/uL [facility] Red Blood Count 4.49 4.20 - 5.50 X10*6/uL [facility] Hemoglobin 12.4 12.0 - 16.0 g/dl [facility] Hematocrit 37.6 37.0 - 47.0 % [facility] Mean Corpuscular Volume 83.7 80.0 - 98.0 fL [facility] Mean Corpuscular Hemoglobin 27.6 27.0 - 33.0 pg [facility] Mean Corpuscular HGB Conc 33.0 31.0 - 35.0 g/dl [facility] Red Cell Distribution Width 13.7 11.0 - 16.0 % [facility] Platelet Count 249 160 - 400 X10*3/uL [facility] Mean Platelet Volume 9.2(L) 9.4 - 12.3 fL [facility] Neutrophils Percent Auto 57.3 45 - 73 % [facility] Imm Gran Pct Auto 0.3 0.0 - 0.4 % [facility] Lymphocytes Percent Auto 34.7 20 - 40 % [facility] Monocytes Percent Auto 5.7 2 - 11 % [facility] Eosinophils Percent Auto 1.7 0 - 4 % [facility] Basophils Percent Auto 0.3 0 - 2 % [facility] NRBC Pct Auto 0.0 0.0 - 0.2 /100WBC [facility] Neutrophils Absolute Auto 3.7 2.0 - 8.3 x10*3/uL [facility] Imm Gran Abs Auto 0.02 0.00 - 0.03 X10*3/uL [facility] Lymphocytes Absolute Auto 2.2 1.2 - 4.9 X10*3/uL [facility] Monocytes Absolute Auto 0.4 0.1 - 1.2 X10*3/uL [facility] Eosinophils Absolute Auto 0.1 0.0 - 0.4 X10*3/uL [facility] Basophils Absolute Auto 0.0 0.0 - 0.2 X10*3/uL [facility] NRBC Abs Auto 0.000 0.0 - 0.012 X10*3/uL [facility] Blood Venous blood specimen / Unknown 11/26/2024 11:54 AM EST 11/26/2024 2:20 PM EST us Mckayla Martinez MD LAB BLOOD ORDERABLES Final Re sult [facility] [address] [place] [phone] * VÍCTOR Screen,IFA, with Reflex to Titer and Pattern (11/26/2024 11:34 AM EST) Anti Nuclear Antibody Screen NEGATIVE NEGATIVE [facility] Comment:VÍCTOR IFA is a first l [...] clinicallysuspected inflammatory myopathies.AC-0: NegativeInternational Consensus on VÍCTOR Patterns(https://doi.org/10.1515/vzhb-0205-4766)For additional information, please refer tohttp://education.Refocus Imaging/faq/APV548(This link is being provided for informational/educational purposes only.)THIS TEST WAS PERFORMED AT:[facility] [place] [phone] SABA MD VÍCTOR Titer TNP [facility] VÍCTOR Pattern TNP [facility] VÍCTOR TITER 2 (REF LAB) [facility] VÍCTOR Pattern 2 [facility]ÍCTOR TITER 3 [facility] VÍCTOR PATTERN 3 [facility] Blood Venous blood specimen / Unknown 11/26/2024 11:34 AM EST 11/26/2024 2:20 PM EST us Mckayla Martinez MD LAB BLOOD ORDERABLES Final Re sult Performing Organization Address [facility]/ZIP Co de Phone Number [facility] [address] [place] [address] [phone] * Rheumatoid Factor (11/26/2024 11:34 AM EST) Rheumatoid Factor <13.0 <15.0 IU/mL [facility] Blood Venous blood specimen / Unknown 11/26/2024 11:34 AM EST 11/26/2024 2:20 PM EST us Mckayla Martinez MD LAB BLOOD ORDERABLES Final Re sult Performing Organization Address [facility] Co de Phone Number [facility] [address] [place] [address] [phone] * Sed Rate by Modified Rachna (11/26/2024 11:34 AM EST) Erythrocyte Sedimentation Rate 9 0 - 20 MM/HR [facility] Comment:Patients with polycy themia and many hemoglobin abnormalitiesmay have depressed sed rates whereas patients with anemiamay have elevated sed rates. Blood Venous blood specimen / Unknown 11/26/2024 11:34 AM EST 11/26/2024 2:20 PM EST us Mckayla Martinez MD LAB BLOOD ORDERABLES Final Re sult Performing Organization Address [facility] Co de Phone Number [facility] [address] [place] [phone] * C-reactive Protein (11/26/2024 11:34 AM EST) C Reactive Protein 0.17 < or = 0.50 mg/dL [facility] Blood Venous blood specimen / Unknown 11/26/2024 11:34 AM EST 11/26/2024 2:20 PM EST us Mckayla Martinez MD LAB BLOOD ORDERABLES Final Re sult Performing Organization Address [email or web address]] de Phone Number [facility] [address] [place] [phone] documented in this encounter Visit Diagnoses Diagnosis Polyarthralgia- Primary Pain in joint, multiple sites Encounter for immunization Chronic pain of both knees Primary hypertension Unspecified essential hypertension documented in this encounter Additional Health Concerns Assessment Noted Time PHQ-9 Depression Total Score: 3 12/30/19 24 9:17 AM EDT documented as of this encounter Care Teams Ui Software Engineer Relationship Specialty Start Date End Date China Lemon MD [address] [place] [address] PCP - General Family Medicine 10/30/21 documented as of this encounter
== END 2024-12-01 14:50 | disposition home or self-care (01) ==
LOC: HO.XRAY 14:49
PROVIDERS: PCP Family Medicine; Visit Provider Pediatrics
DX: M25.561 Pain in right knee (principal); M25.562 Pain in left knee
CPT/HCPCS: 73564

== ENCOUNTER → 2024-12-01 14:52 | Outpatient (BNV) | payer MEDICAID, SELFPAY | PROVIDERS: PCP Family Medicine; Visit Provider Radiology Diagnostic Radiology | DX: M25.561 Pain in right knee (principal); M25.562 Pain in left knee | CPT/HCPCS: 73564 ==

== ENCOUNTER 2025-02-05 09:32 | Outpatient (AMB) | payer MEDICAID, SELFPAY ==
--- NOTE | 2025-02-05 09:36 | MHC.OFFVIS ---
Vital Signs 02/05/25 09:37 Height 4 ft 8 in Weight 132 lb BMI 29.6 Intake Visit Reasons: ov- B/L knee pain, LT knee injection 07/18/22 Intake Note: Jennifer is a 72 yr old female who presents today for an evaluation for bilateral knee pain. 07/18/22 left knee injection. Patient reports the last injection left her in bed for some days. She is taking celebrex BID with some relief. She would like to discuss her options today, injection vs surgery. Conventions Reservationist Required: Yes Conventions Reservationist Language: Atomic Process Engineer Services: Conventions Reservationist Present Conventions Reservationist Name: TIERRA KuoJason/MELISSA Allergies No Known Allergies Allergy (Verified 02/05/25 09:39) Medication List - Last Reconciled 02/05/25 by Ramiro Aragon PA-C albuterol sulfate 90 mcg/actuation 2 inhalations inhalation Q8-12H PRN alendronate 70 mg PO SA@0900 amlodipine 10 mg PO QAM atorvastatin 80 mg PO BEDTIME calcium carbonate-vitamin D3 500 mg-3.125 mcg (125 unit) 1 tab PO DAILY celecoxib 100 mg PO BID gabapentin 100 mg PO BID PRN ketotifen fumarate 0.025%(0.035%) (Eye Itch Relief) 1 drp ophthalmic (eye) BID losartan 100 mg PO DAILY umeclidinium 62.5 mcg/actuation (Incruse Ellipta) 1 inh inhalation DAILY HPI HPI ov- B/L knee pain, LT knee injection 07/18/22: Details: 74-year-old female returns to the office today for bilateral knee pain. She states her left is worse than the right. She had her left knee injected in June of 2022 which was not quite helpful. She continues to have limitations with daily activities and uses a cane for ambulation. [facility] Medical History (Updated 02/05/25 @ 09:55 by Ramiro Aragon PA-C) Arthritis Numbness Elevated cholesterol HTN (hypertension) Pulmonary nodules Lumbar disc herniation with radiculopathy Lumbar spinal stenosis Left lumbar radiculitis Chronic back pain Tubular adenoma Allergies Asthma-COPD overlap syndrome Chronic cough Asthma Surgical History (Updated 03/30/24 @ 10:12 by RUDDY Flowers) Hx of colonoscopy History of surgery on lower extremity Family History Daughter Stomach cancer Daughter HTN (hypertension) Daughter HTN (hypertension) Social History Household Members: Children Housing: House Are you a primary critical care unit manager to a significant other at home: No Do you presently have visiting nurse or other home services: No Patient Tobacco Use Status: Never used Tobacco Second Hand Smoke Exposure: No service: No Current occupational status: retired and disabled Current occupation: rt hand Review of Systems Const All systems reviewed & are unremarkable except as noted in HPI and below Physical Exam Vital Signs: BMI result Body Mass Index 29.6 Const General: cooperative and no acute distress Orientation/consciousness: patient oriented x3 Resp Effort & Inspection: normal respiratory effort and able to speak in complete sentences Cardio Peripheral pulses: Peripheral pulses 2+ throughout Neuro General: patient oriented x3 Extrem Other: Bilateral knees are normal to inspection. She has medial-sided joint line tenderness with varus alignment. Full range of motion with crepitus. Neurovascularly intact. Office Procedures AMB Joint Injection/Aspiration Joint Injection/Aspiration Primary Site: right knee Prep: site was prepped using aseptic technique, ethochloride spray was applied and injection warnings given Injected: 80 mg of, DepoMedrol, with 8 mL of, 1% plain lidocaine and in the joint Approach Used: anterolateral Procedure: The patient tolerated the procedure well and there was some relief with the local anesthesia Coding - Glenohumeral/Tronchanteric Bursa/Intraarticular Procedure code (CPT) selection complete Results Reviewed Results Reviewed: xrays of bilat knee obtained in november 2024 show significant oa bilat knee Assessment & Plan Assessment & Plan (1) Arthritis of both knees: Code(s): M17.0 - Bilateral primary osteoarthritis of knee Category: Medical Plan We discussed options today which include ongoing conservative management with steroid injections versus surgical intervention. The patient would like to proceed with a right knee cortisone injection today which was performed and tolerated well. She would like to discuss left total knee arthroplasty as she continues to have limitations and difficulty with daily activities. I will have her make an appointment with Dr. Ignacio to discuss this further. She is content with this plan all questions answered today. Coding Level of Care Code Est Pt Level 3 (94267) Complex EM visit Add On G2211 Diagnoses Arthritis of both knees M17.0 CPT Codes Coding - Joint 7: 93579 - Glenohumeral/Tronchanteric Bursa/Intraarticular ([id number])
[2025-02-05 09:37] VITALS: BMI 29.6
--- OUTSIDE RECORDS SUMMARY | 2025-02-05 09:51 | XMS_ITS | Encounter Summary ---
Author Organization [employer] Address [address] [place] [address] Care Team Providers Care Microbiology Analyst Name Role Phone China Lemon MD Primary Care Provider [phone] Encounter Details Date Type Department Care Team ([facility] st Contact Info) Description 11/01/2023 Telephone [facility] MEDICINE [address] [place] [address] China Lemon MD [address] [place], [place] [id number] Social History Tobacco Use Types Packs/Day Years [...] as of this encounter Plan of Treatment Upcoming Encounters Date Type Department Care Team (Late st Contact Info) Description 02/24/2025 3:45 PM EDT Office Visit [facility] MED & PEDS [address] [place] [address] China Lemon MD [address] [place] [address] documented as of this encounter Visit Diagnoses Not on filedocumented in this encounter Additional Health Concerns Assessment Noted Time PHQ-9 Depression Total Score: 4 12/27/19 23 3:31 PM EDT documented as of this encounter Care Teams Microbiology Analyst Relationship Specialty Start Date End Date China Lemon MD [address] [place] [address] PCP - General Family Medicine 10/30/21 documented as of this encounter
--- OUTSIDE RECORDS SUMMARY | 2025-02-05 09:51 | XMS_ITS | Encounter Summary ---
Author Organization [employer] Address [address] [place] [address] Care Team Providers Care Stained Glass Glazier Helper Name Role Phone China Lemon MD Primary Care Provider [phone] Reason for Visit * Reason Comments Med Refill Encounter Details Date Type Department Care Team ([facility] st Contact Info) Description 07/23/2024 Refill [facility] MED & PEDS [address] [place], [place] [phone] China Lemon MD [address] [place] [address] Muscle spasm Social History Tobacco Use Types [...] Description 02/24/2025 3:45 PM EDT Office Visit [facility] MED & PEDS [address] [place] [address] China Lemon MD [address] [place] [address] documented as of this encounter Visit Diagnoses Diagnosis Muscle spasm Spasm of muscle documented in this encounter Additional Health Concerns Assessment Noted Time PHQ-9 Depression Total Score: 3 12/30/19 24 9:17 AM EDT documented as of this encounter Care Teams Stained Glass Glazier Helper Relationship Specialty Start Date End Date Chnia Lemon MD [address] [place] [address] PCP - General Family Medicine 10/30/21 documented as of this encounter
--- OUTSIDE RECORDS SUMMARY | 2025-02-05 09:51 | XMS_ITS | Encounter Summary ---
Author Organization [employer] Address [address] [place] [address] Care Team Providers Care Bench Lathe Operator Name Role Phone China Lemon MD Primary Care Provider [phone] Encounter Details Date Type Department Care Team ([facility] st Contact Info) Description 08/15/2023 Abstract [facility] MEDICINE [address] [place] [address] China Lemon MD [address] [place], [place] [phone] Social History Tobacco Use Types Packs/Day Years [...] 3:45 PM EDT Office Visit [facility] MED & PEDS [address] [place] [address] China Lemon MD [address] [place] [address] documented as of this encounter Visit Diagnoses Not on filedocumented in this encounter Additional Health Concerns Assessment Noted Time PHQ-9 Depression Total Score: 4 12/27/19 23 3:31 PM EDT documented as of this encounter Care Teams Bench Lathe Operator Relationship Specialty Start Date End Date China Lemon MD [address] [place] [address] PCP - General Family Medicine 10/30/21 documented as of this encounter
--- OUTSIDE RECORDS SUMMARY | 2025-02-05 09:52 | XMS_ITS | Clinical Summary ---
Author Organization [employer] Address [address] [facility] [address] [place] [address] Care Team Providers Care Educational Administration Teacher Name Role Phone China Lemon MD Primary Care Provider [phone] Allergies Active Allergy Reactions Criticality Noted Date [...] 180 tablet 4 12/27/19 23 Active Umeclidinium Sumner (Incruse Ellipta) 62.5 MCG/ACT aerosol powder INHALE [...] DIRECTED 30 patch 1 04/24/20 24 Active fluticasone (Flonase) 50 MCG/ACT nasal sprayIndication s:Viral URI with cough Administer 2 sprays into each nostril Once per day. Shake gently. Before first use, prime pump. After use, clean tip and replace cap. 16 g 1 08/26/20 24 025 Active ofloxacin (Ocuflox) 0.3 % ophthalmic solutionIndicat [...] Active Acetaminophen Extra Strength 500 MG tablet TAKE 1 TABLET BY MOUTH EVERY 6 HOURS NEEDED FOR PAIN 60 tablet 1 12/26/19 25 Active atorvastatin (Lipitor) 80 MG tablet TAKE 1 TABLET BY MOUTH EVERY DAY AT BEDTIME 90 tablet 1 01/15/20 25 Active atorvastatin (Lipitor) 80 MG tablet TAKE 1 TABLET BY MOUTH EVERY DAY AT BEDTIME 90 tablet 1 06/22/20 24 025 Discontinued Active Problems Problem Noted Date Diagnosed Date [...] Center 12/30/2023 9:[address] [facility] Assessment & Plan (10/29/2023 3:58 PM EST): [...] Encounters Date Type Department Care Team Description 01/14/[address] [facility] [address] [place] [address] China Lemon MD 12/25/[address] [facility] [address] [place] [address] Mckayla Martinez MD 12/02/[address] [facility] [address] [place] [address] Mckayla Martinez MD Primary osteoarthritis of both knees (Primary Dx) 12/02/2024 Telephone [facility] [address] [facility] [place] [address] Mckayla Martinez MD Referral 11/26/2024 11:00 AM EST Office Visit [facility] [address] [place] [address] Mckayla Martinez MD Polyarthralgia (Primary Dx); Encounter for immunization; Chronic pain of both knees; Primary hypertension 11/26/2024 Travel 11/17/2024 11:00 AM EST Office Visit [facility] [address] [place] [address] Greg Dubois MD Skin tag (Primary Dx); Nevus 11/17/2024 Travel from Last 3 Months Immunizations Name Administration Dates Next Due Influenza High-dose Quadrivalent Preservative Fr ee 08/08/2023,06/13/2022 Influenza, seasonal, injectable, preservative fr ee 11/26/2024 BigBad SARS-CoV-2 Vaccination 12/27/2020 Pfizer Covid-19 Vaccine 12+ Bivalent 08/01/2022 Pneumococcal Conjugate [...] 11/26/2024 11:02 AM EST Plan of Treatment Upcoming Encounters Date Type Department Care Team (Late st Contact Info) Description 02/24/2025 3:45 PM EDT Office Visit [facility] [address] [place] [address] China Lemon MD [address] [place] [address] Health Maintenance Due Date Last Done Comments [...] Procedure Name Priority Date/Time Associated Diagnosis Comments XR KNEE 4+ VIEWS RIGHT Routine 12/01/2024 9:27 PM EST Polyarthralgia XR KNEE 4+ VIEWS LEFT Routine 12/01/2024 9:19 PM EST Polyarthralgia CBC WITH AUTO DIFFERENTIAL Routine 11/26/2024 11:54 [...] Recently Relevant to Health Maintenance Results * XR Knee 4+ Views Right (12/01/2024 9:27 PM EST) Anatomical Region Laterality Modality Lower Extremities, Knee Right [facility] 12/01/2024 9:27 PM EST Narrative 12/01/2024 9:29 PM EST ? [facility] ?[address] ?[place] [address] ?XRay Report ? Signed ? Patient: Uribe Dehincapie,Jennifer ? MR#: [id number] ? : 1950 ?Acct:[id number] ? Age/Sex: 74 / F ?ADM Date: 12/01/24 ? Loc: HO.XRAY ? Attending Dr: Mckayla Martinez MD ? Ordering Physician: Mckayla Martinez MD ?? Date of Service: 12/01/24 ?? Procedure(s): XR knee RT 4V ?? Accession Number(s): [id number] ? cc: Mckayla Martinez MD; China Lemon MD ? CLINICAL HISTORY: chronic bilateral knee pain ? Right knee four views ? Comparison: 07/18/2022 ? Findings: ? No acute fracture or dislocation noted. ?? No significant joint effusion identified. ?? Degenerative change with joint space loss. ?? This is most prominent in medial compartment. ?? No soft tissue foreign body. ? Impression: ? No acute bony abnormality ? This document has been electronically signed by: Brendan Walter MD on ?? 12/01/2024 21:27:54 ? Dictated By: ?Brendan Walter MD ? Signed By: ?<Electronically signed by Brendan Walter MD in OV> ? 12/01/242128 ? DD/ 26 ? TD/TT: 12/01/242126 ? Automotive Electrical Helper: ? Procedure Note Nilam Cullen - 12/01/2024 [place] [address] XRay Report Signed Patient: Jennifer Brewster MR#: [id number] : 1950cct:[id number] Age/Sex: 74 / FADM Date: 12/01/24 Loc: HO.RAFFAELEAY Attending Dr: Mckayla Martinez MD Ordering Physician: Mckayla Martinez MD Date of Service: 12/01/24 Procedure(s): XR knee RT 4V Accession Number(s): [id number] cc: Mckayla Martinez MD; China Lemon MD CLINICAL HISTORY: chronic bilateral knee pain Right knee four views Comparison: 07/18/2022 Findings: No acute fracture or dislocation noted. No significant joint effusion identified. Degenerative change with joint space loss. This is most prominent in medial compartment. No soft tissue foreign body. Impression: No acute bony abnormality This document has been electronically signed by: Brendan Walter MD on 12/01/2024 21:27:54 Dictated By: Brendan Walter MD Signed By: <Electronically signed by Brendan Walter MD in OV> 12/01/242128 DD/ 26 TD/TT: 12/01/242126 Automotive Electrical Helper: us Mckayla Martinez MD IMG XR PROCEDURES Edited Resu lt - Final * XR Knee 4+ Views Left (12/01/2024 9:19 PM EST) Anatomical Region Laterality Modality Lower Extremities, Knee Left Radiogra phic Imaging 12/01/2024 9:19 PM EST Narrative 12/01/2024 9:20 PM EST ? [facility] ?[address] ?[place] [address] ?XRay Report ? Signed ? Patient: Jennifer Brewster ? MR#: [id number] ? : 1950 ?Acct:[id number] ? Age/Sex: 74 / F ?ADM Date: 12/01/24 ? Loc: HO.XRAY ? Attending Dr: Mckayla Martinez MD ? Ordering Physician: Mckayla Martinez MD ?? Date of Service: 12/01/24 ?? Procedure(s): XR knee LT 4V ?? Accession Number(s): [id number] ? cc: Mckayla Martinez MD; China Lemon MD ? CLINICAL HISTORY: chronic bilateral knee pain ? Left knee four views ? Comparison: 07/18/2022 ? Findings: ? No acute fracture or dislocation noted. ?? No significant joint effusion identified. ?? Degenerative change with joint space loss. ?? This is most prominent in medial compartment. ?? No soft tissue foreign body. ? Impression: ? No acute bony abnormality ? This document has been electronically signed by: Brendan Walter MD on ?? 12/01/2024 21:19:16 ? Dictated By: ?Brendan Walter MD ? Signed By: ?<Electronically signed by Brendan Walter MD in OV> ? 12/01/242119 ? DD/ 18 ? TD/TT: 12/01/242118 ? Automotive Electrical Helper: ? Procedure Note Channingjulius, Image - 12/01/[address] [address] XRay Report Signed Patient: Jennifer Brewster MR#: [id number] : 1950cct:[id number] Age/Sex: 74 / FADM Date: 12/01/24 Loc: ALE Attending Dr: Mckayla Martinez MD Ordering Physician: Mckayla Martinez MD Date of Service: 12/01/24 Procedure(s): XR knee LT 4V Accession Number(s): [id number] cc: Mckayla Martinez MD; China Lemon MD CLINICAL HISTORY: chronic bilateral knee pain Left knee four views Comparison: 07/18/2022 Findings: No acute fracture or dislocation noted. No significant joint effusion identified. Degenerative change with joint space loss. This is most prominent in medial compartment. No soft tissue foreign body. Impression: No acute bony abnormality This document has been electronically signed by: Brendan Walter MD on 12/01/2024 21:19:16 Dictated By: Brendan Walter MD Signed By: <Electronically signed by Brendan Walter MD in OV> 12/01/242119 DD/ 18 TD/TT: 12/01/242118 Automotive Electrical Helper: us Mckayla Martinez MD IMG XR PROCEDURES Edited Resu lt - Final * (ABNORMAL) CBC auto differential (11/26/2024 11:54 AM EST) White Blood Count 6.5 4.8 - 10.8 X10*3/uL [facility] Red Blood Count 4.49 4.20 - 5.50 X10*6/uL [facility] Hemoglobin 12.4 12.0 - 16.0 g/dl [facility] Hematocrit 37.6 37.0 - 47.0 % [facility] Mean Corpuscular Volume 83.7 80.0 - 98.0 fL [facility] Mean Corpuscular Hemoglobin 27.6 27.0 - 33.0 pg [facility] Mean Corpuscular HGB Conc 33.0 31.0 - 35.0 g/dl [facility] Red Cell Distribution Width 13.7 11.0 - 16.0 % [facility] Platelet Count 249 160 - 400 X10*3/uL [facility] Mean Platelet Volume 9.2(L) 9.4 - 12.3 fL [facility] Neutrophils Percent Auto 57.3 45 - 73 % [facility] Imm Gran Pct Auto 0.3 0.0 - 0.4 % [facility] Lymphocytes Percent Auto 34.7 20 - 40 % [facility] Monocytes Percent Auto 5.7 2 - 11 % [facility] Eosinophils Percent Auto 1.7 0 - 4 % [facility] Basophils Percent Auto 0.3 0 - 2 % [facility] NRBC Pct Auto 0.0 0.0 - 0.2 /100WBC [facility] Neutrophils Absolute Auto 3.7 2.0 - 8.3 x10*3/uL [facility] Imm Gran Abs Auto 0.02 0.00 - 0.03 X10*3/uL [facility] Lymphocytes Absolute Auto 2.2 1.2 - 4.9 X10*3/uL [facility] Monocytes Absolute Auto 0.4 0.1 - 1.2 X10*3/uL [facility] Eosinophils Absolute Auto 0.1 0.0 - 0.4 X10*3/uL [facility] Basophils Absolute Auto 0.0 0.0 - 0.2 X10*3/uL [facility] NRBC Abs Auto 0.000 0.0 - 0.012 X10*3/uL [facility] Blood Venous blood specimen / Unknown 11/26/2024 11:54 AM EST 11/26/2024 2:20 PM EST Mckayla Martinez MD LAB BLOOD ORDERABLES Final Re sult Performing Organization Address [facility] de Phone Number [facility] [address] [place] [phone] * Sed Rate by Modified Asuncionren (11/26/2024 11:34 AM EST) Erythrocyte Sedimentation Rate 9 0 - 20 MM/HR [facility] Comment:Patients with polycy themia and many hemoglobin abnormalitiesmay have depressed sed rates whereas patients with anemiamay have elevated sed rates. Blood Venous blood specimen / Unknown 11/26/2024 11:34 AM EST 11/26/2024 2:20 PM EST Mckayla Martinez MD LAB BLOOD ORDERABLES Final Re sult Performing Organization Address [facility] Phone Number [facility] [address] [place] [phone] * Rheumatoid Factor (11/26/2024 11:34 AM EST) Pathologist [facility] Rheumatoid Factor <13.0 <15.0 IU/mL [facility] Blood Venous blood specimen / Unknown 11/26/2024 11:34 AM EST 11/26/2024 2:20 PM EST Mckayla Martinez MD LAB BLOOD ORDERABLES Final Re sult Performing Organization Address [facility] Co de Phone Number [facility] [address] [place] [phone] * C-reactive Protein (11/26/2024 11:34 AM EST) C Reactive Protein 0.17 < or = 0.50 mg/dL [facility] Blood Venous blood specimen / Unknown 11/26/2024 11:34 AM EST 11/26/2024 2:20 PM EST Mckayla Martinez MD LAB BLOOD ORDERABLES Final Re sult Performing Organization Address [facility]/ZIP Co de Phone Number [facility] [address] [place] [phone] * VÍCTOR Screen,IFA, with Reflex to Titer and Pattern (11/26/2024 11:34 AM EST) Anti Nuclear Antibody Screen NEGATIVE NEGATIVE [facility] Comment:VÍCTOR IFA is a first l [...] clinicallysuspected inflammatory myopathies.AC-0: NegativeInternational Consensus on VÍCTOR Patterns(https://doi.org/10.1515/cadb-1039-7765)For additional information, please refer tohttp://education.Surfkitchen/faq/TQD256(This link is being provided for informational/educational purposes only.)THIS TEST WAS PERFORMED AT:[employer] [place] [phone] SABA MD VÍCTOR Titer [facility] VÍCTOR Pattern [facility] VÍCTOR TITER 2 (REF LAB) [facility] VÍCTOR Pattern 2 [facility] VÍCTOR TITER 3 [facility] VÍCTOR PATTERN 3 [facility] Blood Venous blood specimen / Unknown 11/26/2024 11:34 AM EST 11/26/2024 2:20 PM EST Mckayla Martinez MD LAB BLOOD ORDERABLES Final Re sult Performing Organization Address [facility]/ZIP Co de Phone Number [facility] [address] [place] [phone] * Destruction of lesion (11/17/2024 12:56 PM EST) Narrative Greg Dubois MD - 11/17/2024 12:56 PM EST Greg Dubois MD ? 11/17/2024 12:57 PM Destruction of lesion Date/Time: 11/17/2024 12:56 PM Performed by: Greg Dubois MD Authorized by: Greg Dubois MD ?? Consent: ??Consent obtained: ??Written ??Risks discussed: ??Infection, pain and poor cosmetic result ??Alternatives discussed: ??Observation Arthur protocol: ??Procedure explained and questions answered to [...] EDT Narrative 02/04/2024 3:23 PM EDT ? [facility] ? [address] ?[place] [address] ? Ultrasound Report ? Signed ? Patient: Uribe Kenyatta,Jennifer ? MR#: [id number] ? : 1950 ?Acct:[id number] ? Age/Sex: 73 / F ?ADM Date: 05/07/24 ? Loc: HO.MAMMO ? Attending Dr: China Lemon MD ? Ordering Physician: China Lemon MD ?? Date of Service: 02/04/24 ?? Procedure(s): US breast BI limited mamm only ?? Accession Number(s): [id number] ? cc: China Lemon MD ? EXAMINATION: ?? US DIAGNOSTIC ULTRASOUND BREAST, BILATERAL ? CLINICAL INFORMATION: ? 73-year-old female, initially presented for screening bilateral ?? mammography, voiced no complaints, and then subsequently one day later ?? at the [facility], the patient complained of bilateral breast pain [...] for their next mammogram. ? Dictated By: ?Bruce De Leon MD ? Signed By: ?<Electronically signed by Bruce De Leon MD in OV> ?02/04/24 1520 ? DD/ 1450 ? TD/TT: ? Automotive Electrical Helper: ? Procedure Note Donotkevininterpreter, Image - 02/04/2024 Marlena [facility] [address] [place] [address] Ultrasound Report Signed Patient: Jennifer Brewster MR#: [id number] : 2Acct:[id number] Age/Sex: 73 / FADM Date: 02/04/24 Loc: HO.MAMMO Attending Dr: China Lemon MD Ordering Physician: China Lemon MD Date of Service: 02/04/24 Procedure(s): US breast BI limited mamm only Accession Number(s): [id number] cc: China Lemon MD EXAMINATION: US DIAGNOSTIC ULTRASOUND BREAST, BILATERAL CLINICAL INFORMATION: 73-year-old female, initially presented for screening bilateral mammography, voiced no complaints, and then subsequently one day later at the [facility], the patient complained of bilateral breast pain [...] in OV> 02/04/24 1520 DD/ 1450 TD/TT: Automotive Electrical Helper: us China Lemon MD [facility] [place] PROCEDURES Final Resul t * Lipid Panel, Standard (03/01/2023 8:06 AM EDT) Cholesterol, Total 189 <200 mg/dL [facility] HDL Cholesterol 67 > OR = 50 mg/dL [facility] Triglycerides 143 <150 mg/dL [facility] LDL Cholesterol 98 mg/dL (calc) [employer] [facility] Comment: Reference range: <100 Desirable range <100 mg/dL for primary prevention; ?? <70 mg/dL for patients with CHD or diabetic patients with > or = 2 CHD risk factors. LDL-C is now calculated using the Alexis-Ratliff calculation, which is a validated novel method providing better accuracy than the Friedewald equation in the estimation of LDL-C. Alexis SS et al. KHOA. 2013;310(19): 7531-5468 (http://education.Surfkitchen/faq/DIQ752) Chol/HDLC Ratio 2.8 <5.0 (calc) [facility] Non-HDL Cholesterol 122 <130 mg/dL (calc) [facility] Comment: For patients with diabetes plus 1 major ASCVD risk factor, treating to a non-HDL-C goal of <100 mg/dL (LDL-C of <70 mg/dL) is considered a therapeutic option. Blood Venous blood specimen / Unknown 03/01/2023 8:06 AM EDT 03/01/2023 8:07 AM EDT Narrative [facility] - 03/01/2023 8:14 PM EDT FASTING:YES FASTING: YES China Lemon MD LAB BLOOD ORDERABLES Final Re sult [facility] [address], [place] [phone] [employer] [facility] [address] [place] [phone] * (ABNORMAL) Colonoscopy (05/04/2022) Pathologist [facility] Colonoscopy Abnormal(A ) Normal Narrative Shilpi Barrera - 05/04/2022 Tubular adenoma, f/up in 3 yrs, had colonoscopy in [facility] Historical Provider HEALTH MAINTENANCE Edited Result - Final * HEPATITIS C AB W/REFL TO HCV RNA, QN, PCR (10/30/2021 10:15 AM EST) HEPATITIS C ANTIBODY NON-REACT [facility] NON-REACT [facility] INDEX 0.10 <1.00 [facility] Comment: ?? HCV antibody was non-reactive. There is no laboratory ?? evidence of HCV infection. ?? In most cases, no further action is required. However, if recent HCV exposure is suspected, a test for HCV RNA (test code 22471) is suggested. ?? For additional information please refer to http://education.Digital Royalty.Pebbles Interfaces/faq/TLV44t8 (This link is being provided for informational/ educational purposes only.) ?? 10/30/2021 10:1 5 AM EST China Lemon MD HISTORICAL/NON ORDERABLE LABS Final Result Performing Organization Address City/State/[facility] Co de Phone Number [facility] Anywhere [address] from Last 3 Months or Most Recently Relevant to Health Maintenance Insurance [facility] STANDARD Care Teams Educational Administration Teacher Relationship Specialty Start Date End Date China Lemon MD [address] [place] [address] PCP - General Family Medicine 10/30/21
== END 2025-02-05 10:17 | disposition home or self-care (01) ==
LOC: HO.HOS 09:32
PROVIDERS: PCP Family Medicine; Visit Provider Physician Assistant
DX: M17.0 Bilateral primary osteoarthritis of knee (principal)
CPT/HCPCS: 20610; 99213

== ENCOUNTER → 2025-02-05 09:32 | Outpatient (BNVA) | payer MEDICAID, SELFPAY | PROVIDERS: PCP Family Medicine; Visit Provider Physician Assistant | DX: M17.0 Bilateral primary osteoarthritis of knee (principal) | CPT/HCPCS: 20610; 99212; J1010; J2003 ==

== ENCOUNTER 2025-02-19 11:45 | Outpatient (AMB) | payer MEDICAID, SELFPAY ==
--- NOTE | 2025-02-19 11:48 | A.OFFVIS_ITS ---
Intake Visit Reasons: discuss LT TKA Intake Note: Jennifer is a 74 year old female who presents today for a follow up of her bilateral knee OA. Left Knee injected 07/18/22 & Right Knee injected 02/05/22. She was last seen with Ramiro who referred her to discuss Left TKA. Allergies No Known Allergies Allergy (Verified 02/19/25 11:49) HPI HPI discuss LT TKA: Details: Jennifer is 74-year-old young woman who comes in with bilateral knee pain. She walks with a cane. She has pain with ambulation. She states she can walk about 10 minutes without having to stop and she had limps everywhere she goes. Her left knee is worse than her right. She recently had a right knee injection about 2 weeks ago and was very helpful. She had a left knee injection many years ago that actually made it worse so she has been hesitant to get a left knee injection but is not opposed to it given how good her right knee feels. She is going to [place] this winter and wants to consider potential surgery in the spring. [facility] Medical History (Updated 02/05/25 @ 09:55 by Ramiro Aragon PA-C) Arthritis Numbness Elevated cholesterol HTN (hypertension) Pulmonary nodules Lumbar disc herniation with radiculopathy Lumbar spinal stenosis Left lumbar radiculitis Chronic back pain Tubular adenoma Allergies Asthma-COPD overlap syndrome Chronic cough Asthma Surgical History (Updated 03/30/24 @ 10:12 by RUDDY Flowers) Hx of colonoscopy History of surgery on lower extremity Family History Daughter Stomach cancer Daughter HTN (hypertension) Daughter HTN (hypertension) Social History Household Members: Children Housing: House Are you a primary childcare administrator to a significant other at home: No Do you presently have visiting nurse or other home services: No Patient Tobacco Use Status: Never used Tobacco Second Hand Smoke Exposure: No service: No Current occupational status: retired and disabled Current occupation: rt hand Physical Exam Extrem Other: On exam she has 5-125 degrees motion bilaterally. Tenderness to palpation medial compartment bilateral knees. Retropatellar tenderness to palpation bilateral knees. Stable to varus and valgus stress. No effusion. Office Procedures Joint Inj/Aspir; Non-Pain Clin Joint Injection/Drain Details: Injected 1 mL of Decadron and 3 mL 1% lidocaine and 3 mL of 0.25% Marcaine. Site was prepped using aseptic technique. Patient tolerated the procedure well. Shoulders, Hips, Knees, Knee Large Joint Injection : Left Knee Coding Procedure code (CPT) selection complete Results Reviewed Results Reviewed: I personally reviewed relevant radiographs. Moderate to severe tricompartmental osteoarthritis bilateral knees. Assessment & Plan Assessment & Plan (1) Arthritis of both knees: Code(s): M17.0 - Bilateral primary osteoarthritis of knee Category: Medical Plan: Very pleasant 74-year-old woman with bilateral knee osteoarthritis. I injected her left knee today. Her right knee has been actually feeling better since she had an injection of 2 weeks ago. We discussed surgical intervention. I discussed the options regarding her knees such as continued injections, visco supplementation, physical therapy as well as surgical options including knee replacement. I think she is a good again it for knee replacement and this may help her tremendously as her ambulatory capacity is pretty limited. She is not really interested in knee replacements at the moment. She may be interested in the spring 2025. I reviewed the rationale for knee replacement some of the expectations and risks surrounding knee replacements. She can follow up in 3 months for continued discussion and possible repeat injections. Coding Level of Care Code Est Pt Level 4 (12801) Diagnoses Arthritis of both knees M17.0 CPT Codes Shoulders, Hips, Knees, - Knee Large Joint Injection : Left Knee ([id number])
== END 2025-02-19 12:38 | disposition home or self-care (01) ==
LOC: HO.HOS 11:45
PROVIDERS: PCP Family Medicine; Visit Provider Orthopaedic Surgery
DX: M17.0 Bilateral primary osteoarthritis of knee (principal)
CPT/HCPCS: 20610; 99214

== ENCOUNTER → 2025-02-19 11:45 | Outpatient (BNVA) | payer MEDICAID, SELFPAY | PROVIDERS: PCP Family Medicine; Visit Provider Orthopaedic Surgery | DX: M17.0 Bilateral primary osteoarthritis of knee (principal) | CPT/HCPCS: 20610; 99212 ==

== ENCOUNTER 2025-05-24 10:49 | Outpatient (AMB) | payer MEDICAID, SELFPAY ==
[2025-05-24 10:56] VITALS: BMI 29.6
--- NOTE | 2025-05-24 10:56 | MHC.OFFVIS ---
Vital Signs 05/24/25 10:56 Height 4 ft 8 in Weight 132 lb BMI 29.6 Intake Visit Reasons: OV- Left Knee arthritis, last inj 02/19/25 Intake Note: Jennifer is a 75 year old female who presents today for a follow up of her bilateral knee OA. Last injection administered to the left knee on 02/19/25 and the right knee on 02/05/25. Patient reports continued pain in bilateral knees, right worse than left. She had mild relief from the injection but it has since worn off. She is interested in repeating the Right knee Cortisone. We have previously discussed TKA, but she is not interested at this time. Allergies No Known Allergies Allergy (Verified 02/19/25 11:49) HPI HPI OV- Left Knee arthritis, last inj 02/19/25: Details: Jennifer is a 75 year old female who presents today for a follow up of her bilateral knee OA. Last injection administered to the left knee on 02/19/25 and the right knee on 02/05/25. Patient reports continued pain in bilateral knees, right worse than left. She had mild relief from the injection but it has since worn off. She is interested in repeating the Right knee Cortisone. We have previously discussed TKA, but she is not interested at this time as she is feeling pretty well. I injected her left knee and it was helpful. [facility] Medical History (Updated 02/05/25 @ 09:55 by Ramiro Aragon PA-C) Arthritis Numbness Elevated cholesterol HTN (hypertension) Pulmonary nodules Lumbar disc herniation with radiculopathy Lumbar spinal stenosis Left lumbar radiculitis Chronic back pain Tubular adenoma Allergies Asthma-COPD overlap syndrome Chronic cough Asthma Surgical History (Updated 03/30/24 @ 10:12 by RUDDY Flowers) Hx of colonoscopy History of surgery on lower extremity Family History Daughter Stomach cancer Daughter HTN (hypertension) Daughter HTN (hypertension) Social History Household Members: Children Housing: House Are you a primary home health care social worker to a significant other at home: No Do you presently have visiting nurse or other home services: No Patient Tobacco Use Status: Never used Tobacco Second Hand Smoke Exposure: No service: No Current occupational status: retired and disabled Current occupation: rt hand Physical Exam Vital Signs: BMI result Body Mass Index 29.6 Extrem Other: On exam she has 5-125 degrees motion bilaterally. Tenderness to palpation medial compartment bilateral knees. Retropatellar tenderness to palpation bilateral knees. Stable to varus and valgus stress. No effusion. Office Procedures Joint Inj/Aspir; Non-Pain Clin Joint Injection/Drain Details: Injected 1 mL of Decadron and 3 mL 1% lidocaine and 3 mL of 0.25% Marcaine. Site was prepped using aseptic technique. Patient tolerated the procedure well. Shoulders, Hips, Knees, Knee Large Joint Injection : Right Knee Coding Procedure code (CPT) selection complete Assessment & Plan Assessment & Plan (1) Arthritis of both knees: Code(s): M17.0 - Bilateral primary osteoarthritis of knee Category: Medical Plan: 75-year-old woman with bilateral knee arthritis. She responded very well to a left knee injection and I injected her right knee today. She can follow up see me in 3 months. Coding Level of Care Code Est Pt Level 3 (20516) Diagnoses Arthritis of both knees M17.0 CPT Codes Shoulders, Hips, Knees, - Knee Large Joint Injection : Right Knee ([id number])
--- OUTSIDE RECORDS SUMMARY | 2025-05-24 12:04 | XMS_ITS | Clinical Summary ---
Author Organization 175 [facility] Address [address] [place] [address] Phone Care Team Providers Care Laundry Machine Mechanic Name Role Phone China Lemon MD Primary Care Provider [phone] Social History Tobacco Use Types Packs/Day Years Used Date Smoking Tobacco: Never Assessed Comments Unknown Sex and Gender Information Value Date Recorded Sex Assigned at Not on file Legal Sex Female 8:07 AM EDT Gender Identity Not on file Sexual Orientation Not on file Plan of Treatment Upcoming Encounters Date Type Department Care Team ([facility] Contact Info) Description 05/26/2025 1:15 PM EDT Consult Orthopedic Surgery - [place] [id number] [phone] Mason Austin, DPPoornima [address] [address] Health Maintenance Due Date Last Done Comments Breast Cancer Screening 1950 DTaP,Tdap,and Td Vaccines (1 - Tdap) 1971 Pneumococcal Vaccine: 50+ Ye ars (1 of 1 - PCV) 2002 Zoster Vaccines (1 of 2) 2002 COVID-19 Vaccine ( - 2023-2 5 season) 2024 Depression Screening 09/30/2024 Colorectal Cancer Screening: Colonoscopy 03/03/2025 Falls Risk Assessment 03/03/2025 Hepatitis C Screening 03/03/2025 Osteoporosis Screening (Bone Density Screening) 03/03/2025 Social Influencers of Health Screening 03/03/2025 Influenza Vaccine (#1) 2025 RSV Immunization Adult Patie nts (1 - 1-dose 75+ series) 2027 HIB Vaccines Aged Out No longer eligi [...] on patient's age to complete this topic MMR Vaccines Aged Out No longer eligi ble based on patient's age to complete this topic Meningococcal ACWY Vaccine Aged Out N o longer eligible based on patient's age to complete this topic Meningococcal B Vaccine Aged Out No l onger eligible based on patient's age to complete this topic RSV Immunization Patients Un moustapha 20 months Aged Out No longer eligible b ased on patient's age to complete this topic Varicella Vaccines Aged Out No longer eligible based on patient's age to complete this topic Insurance MEDICAID - [place] Care Teams Laundry Machine Mechanic Relationship Specialty Start Date End Date China Lemon MD [address] [place] [address] PCP - General Family Medicine 03/03/25
--- OUTSIDE RECORDS SUMMARY | 2025-05-24 12:04 | XMS_ITS | Encounter Summary ---
Author Organization [employer] Address [address] [facility] 7[address] [place] [address] Care Team Providers Care Industrial Engineer Name Role Phone China Lemon MD Primary Care Provider [phone] Reason for Visit * Reason Comments Med Refill Encounter Details Date Type Department Care Team ([facility] st Contact Info) Description 07/23/2024 Refill [facility] MED & PEDS [address] [place], [place] [phone] China Lemon MD [address] [place] [address] Muscle spasm Social History Tobacco Use Types [...] documented as of this encounter Care Teams Industrial Engineer Relationship Specialty Start Date End Date China Lemon MD [address] [place] [address] PCP - General Family Medicine 10/30/21 documented as of this encounter
== END 2025-05-24 11:29 | disposition home or self-care (01) ==
LOC: HO.HOS 10:50
PROVIDERS: PCP Family Medicine; Visit Provider Orthopaedic Surgery
DX: M17.0 Bilateral primary osteoarthritis of knee (principal)
CPT/HCPCS: 20610; 99213

== ENCOUNTER → 2025-05-24 10:49 | Outpatient (BNVA) | payer MEDICAID, SELFPAY | PROVIDERS: PCP Family Medicine; Visit Provider Orthopaedic Surgery | DX: M17.11 Unilateral primary osteoarthritis, right knee (principal); M17.12 Unilateral primary osteoarthritis, left knee | CPT/HCPCS: 20610; 99212; J0665; J1100; J2003 ==

== ENCOUNTER 2025-06-01 14:35 | Outpatient (REF) | payer MEDICAID, SELFPAY ==
--- OUTSIDE RECORDS SUMMARY | 2025-06-01 15:45 | XMS_ITS | Encounter Summary ---
Author Organization [employer] Address [address] [facility] [address] 7[address] [place] [address] Care Team Providers Care Candle Pourer Name Role Phone China Lemon MD Primary Care Provider [phone] Encounter Details Date Type Department Care Team ([facility] st Contact Info) Description 11/01/2023 Telephone [facility] [address] [place] [address] China Lemon MD [address] [place], [place] [phone] Social History Tobacco Use Types Packs/Day Years [...] documented as of this encounter Care Teams Candle Pourer Relationship Specialty Start Date End Date China Lemon MD [address] [place] [address] PCP - General Family Medicine 10/30/21 documented as of this encounter
--- OUTSIDE RECORDS SUMMARY | 2025-06-01 15:45 | XMS_ITS | Clinical Summary ---
Author Organization 175 [facility] Address [address] [place] [address] Phone Care Team Providers Care Forest Ranger Technician Name Role Phone China Lemon MD Primary Care Provider [phone] Allergies Active Allergy Reactions Criticality Noted Date Comments Amlodipine Swelling 02/28/2024 BLE swelling Medications silver sulfADIAZINE (SSD) 1 % creamIndications: Ingrowing nail Apply topically 1 (one) time each day. 50 g 05/26/20 26 Active Encounters Date Type Department Care Team Description 05/26/2025 1:15 PM EDT Consult Orthopedic Surgery [facility] [address] [phone] Mason Austin DPM Cellulitis of right foot (Primary Dx); Ingrowing nail from Last 3 Months Social History Tobacco Use Types Packs/Day Years Used Date Smoking Tobacco: Never Assessed Comments Unknown Sex and Gender Information Value Date Recorded Sex Assigned at Not on file Legal Sex Female 8:07 AM EDT Gender Identity Not on file Sexual Orientation Not on file Plan of Treatment Upcoming Encounters Date Type Department Care Team (Late st Contact Info) Description 06/07/2025 11:00 AM EDT Office Visit Orthopedic Surgery [facility] [address] [phone] Mason Austin DPM [address] [address] Health Maintenance Due Date Last Done Comments Breast Cancer Screening 1950 Depression Screening 09/30/2024 Colorectal Cancer Screening: Colonoscopy 03/03/2025 Falls Risk Assessment 03/03/2025 Hepatitis C Screening 03/03/2025 Osteoporosis Screening (Bone Density Screening) 03/03/2025 Social Influencers of Health Screening 03/03/2025 Hypertension/CHF/CAD Annual BMP Blood Test 05/26/2025 COVID-19 Vaccine (3 - 2024-2 6 season) 2025 08/01/2022, 12/27/2020 Influenza Vaccine (#1) 2025 , 08/08/2023, 06/13/2022 Cholesterol Screening (Lipid Panel) 03/01/2028 03/01/2023 DTaP,Tdap,and Td Vaccines (2 - Td or Tdap) 08/08/2033 08/08/2023 Zoster Vaccines Completed 03/01/2022, 12/08/2021 Pneumococcal Vaccine: 50+ Years Completed 08/08/2023, 12/04/2021 RSV Immunization Adult Patients Completed 07/02/2024 HIB Vaccines Aged Out No longer eligi [...] to complete this topic RSV Immunization Patients Under 20 months Aged Out No longer eligible b ased on patient's age to complete this topic Varicella Vaccines Aged Out No longer eligible based on patient's age to complete this topic Insurance MEDICAID - [place] Care Teams Forest Ranger Technician Relationship Specialty Start Date End Date China Lemon MD [address] [place] [id number] PCP - General Family Medicine 03/03/25
--- OUTSIDE RECORDS SUMMARY | 2025-06-01 15:45 | XMS_ITS | Encounter Summary ---
Author Organization [employer] Address [address] [facility] 7t [place] [address] Care Team Providers Care Residential Sales Rep Name Role Phone China Lemon MD Primary Care Provider [phone] Reason for Visit * Reason Comments Med Refill Encounter Details Date Type Department Care Team ([facility] st Contact Info) Description 07/23/2024 Refill [facility] CH[facility] MED & PEDS [address] [place], [place] [phone] China Lemon MD [address] [place] [address] Muscle spasm Social History Tobacco Use Types [...] documented as of this encounter Care Teams Residential Sales Rep Relationship Specialty Start Date End Date China Lemon MD [address] [place] [address] PCP - General Family Medicine 10/30/21 documented as of this encounter
--- OUTSIDE RECORDS SUMMARY | 2025-06-01 15:46 | XMS_ITS | Encounter Summary ---
Author Organization [employer] Address [address] [facility] [address] [place] [address] Care Team Providers Care Director Software Quality Assurance Name Role Phone China Lemon MD Primary Care Provider [phone] Encounter Details Date Type Department Care Team ([facility] st Contact Info) Description 08/15/2023 Abstract [facility] MED[facility]INE [address] [place] [address] China Lemon MD [address] [place], [place] [phone] Social History Tobacco Use Types Packs/Day Years [...] documented as of this encounter Care Teams Director Software Quality Assurance Relationship Specialty Start Date End Date China Lemon MD [address] [place] [address] PCP - General Family Medicine 10/30/21 documented as of this encounter
--- OUTSIDE RECORDS SUMMARY | 2025-06-01 15:46 | XMS_ITS | Encounter Summary ---
Author Organization [employer] Address [address] [facility] 7t [place] [address] Care Team Providers Care Plant Taxonomist Name Role Phone China Carreon MD Primary Care Provider [phone] Reason for Visit * Reason Onset Date Comments Med Refill 05/26/2025 Encounter Details Date Type Department Care Team ([facility] st Contact Info) Description 05/26/2025 Telephone [facility] [address] [place] [address] China Carreon MD [address] [place] [address] Med Refill Social History Tobacco Use Types Packs/Day Years [...] AM EDT documented as of this encounter Miscellaneous Notes * Addendum Note - China Carreon MD - 05/27/2025 4:27 PM EDTAddended by: CHINA CARREON on: 05/27/2025 04:27 PM Modules accepted: Orders * Telephone Encounter - Avril Ritchie RN - 05/27/2025 1:42 PM EDT Confirmed with [facility] pharm, patient is using Incruse Ellipta 62.5 mcg. She is not using Breo Ellipta. * Telephone Encounter - China Carreon MD - 05/26/2025 1:30 PM EDT Can you get the dosing, as it is written as Breo ellipta, and I have incruse ellipta on my list. Please and thanksQ1 * Telephone Encounter - Elvia Torres LPN - 05/26/2025 9:28 AM EDT Please see message below and advise. * Telephone Encounter - Reyna Ramon - 05/26/2025 9:13 AM EDT TC from pt requesting medication refill. Medications needing refill : - Breo ellipta inhaler To be sent to: - [facility] - [place] - [address] [facility] Specialist advised to has PCP for refill, due appt is to far away and pulmonary is not going to prescribed until pt been seen documented in this encounter Plan of Treatment Not on file documented as of this encounter Visit Diagnoses Not on filedocumented in this encounter Additional Health Concerns Assessment Noted Time PHQ-9 Depression Total Score: 3 12/30/19 24 9:17 AM EDT documented as of this encounter Care Teams Plant Taxonomist Relationship Specialty Start Date End Date China Carreon MD [address] [facility] [place] [address] PCP - General Family Medicine 10/30/21 documented as of this encounter
--- OUTSIDE RECORDS SUMMARY | 2025-06-01 15:46 | XMS_ITS | Clinical Summary ---
Author Organization [employer] Address [address] [place] [address] [address] [place] [address] Care Team Providers Care Baked Goods Stock Clerk Name Role Phone China Lemon MD Primary Care Provider [phone] Allergies Active Allergy Reactions Criticality Noted Date [...] daily. 180 tablet 4 12/27/19 23 Active albuterol (Ventolin HFA) 108 (90 [...] times daily. 90 tablet 11/13/19 24 Active Artificial Tears 0.2-0.2-1 % solution Administer 1 drop into both eyes 2 times daily. 15 mL 3 02/28/20 24 Active fluticasone (Flonase) 50 MCG/ACT nasal [...] 7 days. 10 mL 08/26/20 24 Active celecoxib (CeleBREX) 100 MG capsule TAKE 1 CAPSULE BY MOUTH TWICE DAILY 60 capsule 10/05/19 25 Active atorvastatin (Lipitor) 80 MG tablet TAKE 1 TABLET BY MOUTH EVERY DAY AT BEDTIME 90 tablet 1 01/15/20 25 Active losartan (Cozaar) 100 MG tablet TAKE 1 TABLET BY MOUTH EVERY DAY 90 tablet 03/16/20 25 Active alendronate (Fosamax) 70 MG tabletIndicatio ns:Age-related osteoporosis without current pathological fracture take 1 tablet by mouth once a week with 6 to 8 oz of water 30 min before first food of day. do not lie down for 30 minutes 12 tablet 1 03/16/20 25 Active Eye Itch Relief 0.035 % solution APPLY 1 DROP IN EACH EYE TWICE DAILY 10 mL 03/16/20 25 Active Acetaminophen Extra Strength 500 MG tablet TAKE 1 TABLET BY MOUTH EVERY 6 HOURS NEEDED FOR PAIN 60 tablet 1 04/08/20 25 Active lidocaine (Lidoderm) 5 % patchIndication s:Muscle spasm APPLY 1 PATCH TOPICALLY TO SKIN, LEAVE ON FOR 12 HOURS AND OFF FOR 12 HOURS DIRECTED 30 patch 04/08/20 25 Active polyvinyl alcohol (Liquifilm Tears) 1.4 % ophthalmic solution INSTILL 1 DROP IN IN EACH EYE TWICE DAILY 15 mL 05/24/20 25 Active Umeclidinium [place] (Incruse Ellipta) 62.5 MCG/ACT aerosol powder Inhale 1 Act (62.5 mcg) Once per day. 30 each 05/27/20 25 Active Umeclidinium [place] (Incruse Ellipta) 62.5 MCG/ACT aerosol powder INHALE 1 PUFF BY MOUTH EVERY DAY AT THE SAME TIME 30 each 01/19/20 23 2024 Discontinued(R eorder (will not trigger notification to Pharmacy)) polyvinyl alcohol (Liquifilm Tears) 1.4 % ophthalmic solution ADMINISTER 1 DROP IN EACH EYE TWICE DAILY 15 mL 3 09/07/20 24 2024 Discontinued Active Problems Problem Noted Date Diagnosed Date Ingrown toenail of right foot 02/24/2025 Assessment & Plan (03/02/2025 8:26 AM EDT): Patient has been diagnosed with onychomycosis and an ingrown toenail on a right toe. Treatment has been delayed due to live in housekeeper nanny availability issues. Plan: - Refer to podiatry for evaluation and treatment of onychomycosis and ingrown toenail Pain of left middle finger 12/30/2023 Assessment & Plan (12/30/2023 5:20 PM EDT): -Ordered XR hand for further evaluation. Mass overlapping multiple quadrants of right luara ast 12/30/2023 Breast pain, left 12/30/2023 Assessment [...] for bathroom Needs rolling walker and wheelchair Patient s clinical findings support the need for [...] kg) Patient needs a walker to perform MRADL s and the functional mobility deficit cannot be sufficiently resolved by use of a cane or crutches, given she will need assistance of both upper extremities for balance. The patient is willing to use a walker and the functional mobility deficit can be improved with the use of this device. . Patient s clinical condition supports the need for a manual wheelchair because: The patient has a mobility limitation that significantly impairs her ability to participate in one or more mobility-related activities of daily living (MRADL). Medical condition: Severe left hip arthritis with immobility and inability to bear weight The patient s mobility limitation cannot be sufficiently resolved [...] Center 12/30/2023 9:15 AM China Lemon MD [facility] Assessment & Plan (10/29/2023 3:58 PM [...] Assessment & Plan (12/26/2022 4:22 PM EDT): Patient s clinical findings support the need for [...] kg) Patient needs a walker to perform MRADL s and the functional mobility deficit cannot be sufficiently resolved by use of a cane or crutches, given she will need assistance of both upper extremities for balance. The patient is willing to use a walker and the functional mobility deficit can be improved with the use of this device. Will also send analgesics and pain management Chronic pain of multiple joints 12/26/2022 Assessment & Plan (03/02/2025 8:26 AM EDT): Patient has been diagnosed with lumbar spondylosis and right leg lumbar radiculopathy. She reports pain radiating from her back down her right leg. The patient has received injections for pain management, with two more scheduled. The most recent injection has provided some improvement, particularly in reducing leg cramps. Plan: - Continue with scheduled injections for pain management - Monitor effectiveness of injections in managing radicular symptoms - Encourage continuation of physical therapy, as patient reports it helps with pain Age-related osteoporosis wit hout current pathological fracture 12/26/2022 Assessment & Plan (03/02/2025 8:25 AM EDT): Patient has been diagnosed with osteoporosis. The patient reports significant pain associated with her condition. Plan: - Continue prescribed exercises, despite reported pain - Encourage walking 2 blocks daily as tolerated - Reactivate lidocaine patches for pain management - If not covered by insurance, recommend [id number] purchase - Prescribe bilateral hip-high compression stockings for her varicose veins - Submit necessary paperwork for insurance coverage of compression stockings Assessment & Plan (12/26/2022 4:23 PM EDT): [...] Date Type Department Care Team Description 05/26/2025 Telephone [facility] [address] [place], [place] [phone] China Lemon MD Med Refill 05/23/2025 Refill [facility] [address] [place] [address] China Lemon MD 04/08/2025 Refill [facility] [address] [place], [place] [phone] China Lemon MD Muscle spasm 03/16/2025 Refill [facility] [address] [place], [place] [phone] China Lemon MD Age-related osteoporosis without current pathological fracture 03/16/2025 Refill [facility] [address] [place] [phone] China Lemon MD Age-related osteoporosis without current pathological fracture from Last 3 Months Immunizations Immunization Administration Dates Next Due Influenza High-dose Quadrivalent Preservative Fr ee 08/08/2023,06/13/2022 Influenza, seasonal, injectable, preservative fr ee 11/26/2024 Jin SARS-CoV-2 Vaccination 12/27/2020 Pfizer Covid-19 Vaccine 12+ [...] Sign Reading Time Taken Comments Blood Pressure 134/70 02/24/2025 3:56 PM EDT Pulse 80 02/24/2025 3:56 PM EDT Temperature 37 C (98.6 F) 02/24/2025 3:56 PM EDT Respiratory Rate 14 02/24/2025 3:56 PM EDT Oxygen Saturation 96% 02/24/2025 3:56 PM EDT Inhaled Oxygen Concentration - - Weight 60.8 kg (134 lb) 02/24/2025 3:56 PM EDT Height 142.2 cm (4' 8 ) 02/24/2025 3:56 PM EDT Body Mass Index 30.04 02/24/2025 3:56 PM EDT Plan of Treatment Health Maintenance Due Date Last Done Comments CT Colonography 1952 FIT DNA/Cologuard 1950 FIT 1950 FOBT 1950 Sigmoidoscopy 1950 Depression Screening 12/29/2024 12/30/2023, 12/30/19 24 Colonoscopy 05/04/2025 05/04/2022 Colorectal Cancer Screening 05/04/2025 COVID-19 Vaccine ( season) 2025 08/01/2022, 12/27/2020 Influenza Vaccine (#1) 2025 , 08/08/2023, 06/13/2022 Alcohol/Substance Use Screening 11/26/2025 11/26/2024 SDOH Screening 11/26/2025 11/26/2024 Tobacco Screening 11/26/2025 11/26/2024 Mammogram 02/03/2026 02/04/2024, 11/29, 12/18/2022, Additional history exists Lipid Panel 03/01/2028 03/01/2023, 10/30/2021 DTaP/Tdap/Td Vaccines (2 - Td or Tdap) 08/08/2033 08/08/2023 Hepatitis C Screening Completed 10/30/2021 Zoster Vaccines Completed 03/01/2022, 12/08/2021 Pneumococcal Vaccine: 50+ Years Completed 08/08/2023, 12/04/2021 RSV Patients and Patients Aged 60 years or older Completed 07/02/2024 HIB Vaccines Aged Out No [...] Procedure Name Priority Date/Time Associated Diagnosis Comments BI US BREAST LIMITED BILATERAL Routine 02/04/2024 2:50 PM EDT LIPID PANEL, STANDARD Routine 03/01/2023 8:06 AM EDT Primary hypertension HM COLONOSCOPY Routine 05/04/2022 ZZZ HISTORICAL HEPATITIS C AB W/REFL TO HCV RNA, QN, PCR Routine 10/30/2021 10:15 AM EST from Last 3 Months or Most Recently Relevant to Health Maintenance Results * BI US Breast Limited Bilateral (02/04/2024 2:50 PM EDT) Anatomical Region Laterality Modality Breast Bilateral Ultrasound 02/04/2024 2:50 PM EDT Narrative 02/04/2024 3:23 PM EDT [facility] [address] [place], [place] [address] Ultrasound Report Signed Patient: Jennifer Brewster MR#: [id number] : 1950 Acct:[id number] Age/Sex: 73 / F ADM Date: 02/04/24 Loc: HO.MAMMO Attending Dr: China Lemon MD Ordering Physician: China Lemon MD Date of Service: 02/04/24 Procedure(s): US breast BI limited mamm only Accession Number(s): [id number] cc: China Lemon MD EXAMINATION: US DIAGNOSTIC ULTRASOUND BREAST, BILATERAL CLINICAL INFORMATION: 73-year-old female, initially presented for screening bilateral mammography, voiced no complaints, and then subsequently one day later at the [facility], the patient complained of bilateral breast [...] in OV> 02/04/24 1520 DD/ 1450 TD/TT: Reception: Procedure Note Donotuseinterpreter, Image - 02/04/2024 [facility] [address] [place], [place] [address] Ultrasound Report Signed Patient: Jennifer Brewster MR#: [id number] : 2Acct:[id number] Age/Sex: 73 / FADM Date: 02/04/24 Loc: HO.MAMMO Attending Dr: China Lemon MD Ordering Physician: China Lemon MD Date of Service: 02/04/24 Procedure(s): US breast BI limited mamm only Accession Number(s): [id number] cc: China Lemon MD EXAMINATION: US DIAGNOSTIC ULTRASOUND BREAST, BILATERAL CLINICAL INFORMATION: 73-year-old female, initially presented for screening bilateral mammography, voiced no complaints, and then subsequently one day later at the [facility], the patient complained of bilateral breast [...] in OV> 02/04/24 1520 DD/ 1450 TD/TT: Reception: us China Lemon MD [facility] US PROCEDURES Final Resul t * Lipid Panel, Standard (03/01/2023 8:06 AM EDT) Cholesterol, Total 189 <200 mg/dL [facility] HDL Cholesterol 67 > OR = 50 mg/dL [facility] Triglycerides 143 <150 mg/dL [facility] LDL Cholesterol 98 mg/dL (calc) [facility] Comment: Reference range: <100 Desirable range <100 mg/dL for primary prevention; <70 mg/dL for patients with CHD or diabetic patients with > or = 2 CHD risk factors. LDL-C is now calculated using the Andie calculation, which is a validated novel method providing better accuracy than the Friedewald equation in the estimation of LDL-C. Alexis SS et al. KHOA. 2013;310(19): 9051-4855 (http://education.Sitemasher/faq/EUY585) Chol/HDLC Ratio 2.8 <5.0 (calc) [facility] Non-HDL Cholesterol 122 <130 mg/dL (calc) [employer] Comment: For patients with diabetes plus 1 major ASCVD risk factor, treating to a non-HDL-C goal of <100 mg/dL (LDL-C of <70 mg/dL) is considered a therapeutic option. Blood Venous blood specimen / Unknown 03/01/2023 8:06 AM EDT 03/01/2023 8:07 AM EDT Narrative [facility] - 03/01/2023 8:14 PM EDT FASTING:YES FASTING: YES China Lemon MD LAB BLOOD ORDERABLES Final Re sult [address], [place] [address] [facility] [address] [place] [address] * (ABNORMAL) Colonoscopy (05/04/2022) Pathologist [facility] Colonoscopy Abnormal(A ) Normal Narrative Shilpi Barrera - 05/04/2022 Tubular adenoma, f/up in 3 yrs, had colonoscopy in [facility] Historical Provider HEALTH MAINTENANCE Edited Result - Final * HEPATITIS C AB W/REFL TO HCV RNA, QN, PCR (10/30/2021 10:15 AM EST) Pathologist [facility] HEPATITIS C ANTIBODY NON-REACT BETTE NON-REACT BETTE [facility] INDEX 0.10 <1.00 [facility] Comment: HCV antibody was non-reactive. There is no laboratory evidence of HCV infection. In most cases, no further action is required. However, if recent HCV exposure is suspected, a test for HCV RNA (test code 38354) is suggested. For additional information please refer to http://education.Myrio/faq/KDB44g6 (This link is being provided for informational/ educational purposes only.) 10/30/2021 10:1 5 AM EST us China Lemon MD HISTORICAL/NON ORDERABLE LABS Final Result [facility] [address] from Last 3 Months or Most Recently Relevant to Health Maintenance Insurance [facility] STANDARD Care Teams Baked Goods Stock Clerk Relationship Specialty Start Date End Date China Lemon MD [address] [place] [id number] PCP - General Family Medicine 10/30/21
== END 2025-06-01 14:36 | disposition home or self-care (01) ==
LOC: HO.MAMMO 14:35
PROVIDERS: PCP Family Medicine; Visit Provider Family Medicine
DX: Z12.31 Encounter for screening mammogram for malignant neoplasm of breast (principal)
CPT/HCPCS: 77063; 77067

== ENCOUNTER → 2025-06-01 14:45 | Outpatient (BNV) | payer MEDICAID, SELFPAY | PROVIDERS: PCP Family Medicine; Visit Provider Internal Medicine | DX: Z12.31 Encounter for screening mammogram for malignant neoplasm of breast (principal) | CPT/HCPCS: 77063; 77067 ==

== ENCOUNTER 2025-07-15 12:43 | Outpatient (AMB) | payer MEDICAID, SELFPAY ==
[2025-07-15 12:44] VITALS: BMI 29.6
--- NOTE | 2025-07-15 12:44 | MHC.OFFVIS ---
Vital Signs 07/15/25 12:44 Height 4 ft 8 in Weight 132 lb BMI 29.6 Intake Visit Reasons: OV- B/L knee OA, Discuss Right TKA Intake Note: Jennifer is a 75 year old female who presents today for a follow up of her bilateral knee OA. Right knee last injected 05/24/25. Today she would like to discuss moving forward with Right Total Knee Arthroplasty. BMI: 29.6 L4-5 Tranksambin Lumabr Fusion 03/10/24 No significant medical history PCP: China Lemon Allergies No Known Allergies Allergy (Verified 07/15/25 12:44) HPI HPI OV- B/L knee OA, Discuss Right TKA: Details: Jennifer is a 75 year old female who presents today for a follow up of her bilateral knee OA. Right knee last injected 05/24/25. Today she would like to discuss moving forward with Right Total Knee Arthroplasty. Has had 3 injections. Uses a cane and can only walk for a few minutes. We have discussed arthroplasty in the past but for 1 reason or another she has been hesitant to proceed forward. She is going to the point now where she feels she can not live like this. The injections are working and she finds the activity related pain limits quality of her life. BMI: 29.6 L4-5 Tranksambin Lumabr Fusion 03/10/24 PMH: Asthma; osteoporosis, HBP PCP: China Lemon [facility] Medical History (Updated 07/16/25 @ 08:45 by Jesu Ignacio MD) Arthritis Numbness Elevated cholesterol HTN (hypertension) Pulmonary nodules Lumbar disc herniation with radiculopathy Lumbar spinal stenosis Left lumbar radiculitis Chronic back pain Tubular adenoma Allergies Asthma-COPD overlap syndrome Chronic cough Asthma Surgical History (Updated 03/30/24 @ 10:12 by RUDDY Flowers) Hx of colonoscopy History of surgery on lower extremity Family History Daughter Stomach cancer Daughter HTN (hypertension) Daughter HTN (hypertension) Social History Household Members: Children Housing: House Are you a primary pediatric acute care unit nurse to a significant other at home: No Do you presently have visiting nurse or other home services: No Patient Tobacco Use Status: Never used Tobacco Second Hand Smoke Exposure: No service: No Current occupational status: retired and disabled Current occupation: rt hand Physical Exam Vital Signs: BMI result Body Mass Index 29.6 Const General: cooperative, healthy appearing, no acute distress, well developed and alert HEENT Head: Yes normal to inspection, Yes normocephalic and Yes atraumatic Mouth: moist mucous membranes Eyes General: appearance normal, both eyes and all related structures EOM: EOMs intact bilaterally Chest Other: no audible wheezing. Resp Other: No audible wheezing Effort & Inspection: normal respiratory effort Cardio Other: Radial pulse palpable with no rythmic abnormalities Back/Spine/Pelvis Cervical Spine: normal cervical lordosis Skin General skin exam: no rashes or lesions noted Neuro General: no focal motor deficits Extrem Other: Tenderness to palpation medial compartment right knee. 5-125 degrees of motion. Positive gait antalgia. 2+ dorsalis pedis pulse. Psych Appearance: grossly normal and well kempt Mental Status: mental status grossly normal Speech and movement: Normal speech and movement present Affect: normal affect Attitude: cooperative Results Reviewed Results Reviewed: I personally reviewed relevant radiographs. There is tricompartmental osteoarthritis that is severe in the medial compartment. Assessment & Plan Assessment & Plan (1) Localized osteoarthritis of right knee: Code(s): M17.11 - Unilateral primary osteoarthritis, right knee Category: Medical Plan: This is a 75-year-old woman with severe osteoarthritis of the right knee. She has failed conservative measures her ambulatory status is severely limited. I recommend right knee arthroplasty. I reviewed the surgery with her. We have discussed this in the past and I again explained the risks, benefits and alternatives to surgery. These include infection, stiffness, doing much to nerves and arteries as well as ongoing pain or need for further surgery. Medical complications include blood clots, pulmonary emboli and organ dysfunction among others. She understands these risks. All her questions were answered. We will begin the preoperative clearance process Coding Level of Care Code Est Pt Level 4 (80811) Diagnoses Localized osteoarthritis of right knee M17.11
--- OUTSIDE RECORDS SUMMARY | 2025-07-15 15:50 | XMS_ITS | Clinical Summary ---
Author Organization [employer] Address [address] [place] [address] [address] [place] [address] Care Team Providers Care [employer] Reading Teacher Name Role Phone China Lemon MD Primary Care Provider [phone] Allergies Active Allergy Reactions Criticality Noted Date [...] 7 days. 10 mL 08/26/20 24 Active losartan (Cozaar) 100 MG tablet TAKE 1 TABLET BY MOUTH EVERY DAY 90 tablet 1 03/16/20 25 Active alendronate (Fosamax) 70 MG tabletIndicatio ns:Age-related osteoporosis without current pathological fracture take 1 tablet by mouth once a week with 6 to 8 oz of water 30 min before first food of day. do not lie down for 30 minutes 12 tablet 1 03/16/20 25 Active lidocaine (Lidoderm) 5 % patchIndication s:Muscle spasm APPLY 1 PATCH TOPICALLY TO SKIN, LEAVE ON FOR 12 HOURS AND OFF FOR 12 HOURS DIRECTED 30 patch 1 04/08/20 25 Active polyvinyl alcohol (Liquifilm Tears) 1.4 % ophthalmic solution INSTILL 1 DROP IN IN EACH EYE TWICE DAILY 15 mL 3 05/24/20 25 Active Umeclidinium Goodwin (Incruse Ellipta) 62.5 MCG/ACT aerosol powder Inhale 1 Act (62.5 mcg) Once per day. 30 each 5 05/27/20 25 Active atorvastatin (Lipitor) 80 MG tablet TAKE 1 TABLET BY MOUTH DAILY AT BEDTIME 90 tablet 1 06/08/20 25 Active celecoxib (CeleBREX) 100 MG capsule TAKE 1 CAPSULE BY MOUTH TWICE DAILY 60 capsule 5 06/18/20 25 Active Acetaminophen Extra Strength 500 MG tablet TAKE 1 TABLET BY MOUTH EVERY 6 HOURS NEEDED FOR PAIN 60 tablet 1 06/18/20 25 Active Ketotifen Fumarate 0.035 % solution PLACE 1 DROP IN EACH EYE TWICE DAILY 10 mL 1 07/08/20 25 Active celecoxib (CeleBREX) 100 MG capsule TAKE 1 CAPSULE BY MOUTH TWICE DAILY 60 capsule 5 10/05/19 25 025 Discontinued Eye Itch Relief 0.035 % solution APPLY 1 DROP IN EACH EYE TWICE DAILY 10 mL 1 03/16/20 25 025 Discontinued Acetaminophen Extra Strength 500 MG tablet TAKE 1 TABLET BY MOUTH EVERY 6 HOURS NEEDED FOR PAIN 60 tablet 1 04/08/20 025 Discontinued Active Problems Problem Noted Date Diagnosed Date Ingrown toenail of right foot 02/24/2025 Assessment & Plan (03/02/2025 8:26 AM EDT): Patient has been diagnosed with onychomycosis and an ingrown toenail on a right toe. Treatment has been delayed due to it quality assurance analyst availability issues. Plan: - Refer to podiatry [...] Center 12/30/2023 9:15 AM China Lemon MD [facility] Assessment & Plan (10/29/2023 3:58 PM [...] Bilateral knee pain 04/24/2023 Asthma-COPD overlap syndrome (CMS/HCC) Assessment & Plan (03/02/2024 2:02 AM EDT): [...] - If not covered by insurance, recommend [id number] purchase - Prescribe bilateral hip-high compression stockings [...] Encounters Date Type Department Care Team Description 07/08/2025 Refill [facility] [address] [place] [address] China Lemon MD 06/18/2025 Refill [facility] [address] [place] [address] China Lemon MD 06/07/2025 Refill [facility] [address] [place] [address] Mckayla Martinez MD 06/01/2025 Orders Only [facility] [address] [place] [address] China Lemon MD 05/26/2025 Telephone [facility] [address] [place], [place] [phone] China Lemon MD Med Refill 05/23/2025 Refill [facility] [address] [place] [address] China Lemon MD from Last 3 Months Immunizations Immunization Administration [...] 11/26/2025 11/26/2024 Tobacco Screening 11/26/2025 11/26/2024 Mammogram 06/01/2027 06/01/2025, 05/0 03/2024, 12/23/2023, Additional history exists Lipid Panel 03/01/2028 03/01/2023, [...] Name Priority Date/Time Associated Diagnosis Comments BI MAMMOGRAM SCREENING TOMOSYNTHESIS BILATERAL Routine 06/01/2025 2:40 PM EDT LIPID PANEL, STANDARD Routine 03/01/2023 8:06 AM EDT Primary hypertension HM COLONOSCOPY Routine 05/04/2022 ZZZ HISTORICAL HEPATITIS C AB W/REFL TO HCV RNA, QN, PCR Routine 10/30/2021 10:15 AM EST from Last 3 Months or Most Recently Relevant to Health Maintenance Results * BI Mammogram Screening Tomosynthesis Bilateral (06/01/2025 2:40 PM EDT) Anatomical Region Laterality Modality Breast Bilateral Mammography 06/01/2025 2:40 PM EDT Narrative 06/04/2025 1:57 PM EDT [facility] [address] [place] [address] Mammography Report Signed Patient: Jennifer Brewster MR#: [id number] : 1950 Acct:[id number] Age/Sex: 75 / F ADM Date: 06/01/25 Loc: HO.MAMMO Attending Dr: China Lemon MD Ordering Physician: China Lemon MD Results: 1Nega tive Date of Service: 06/01/25 Follow Up: 1 Year From Orig inal Mammogram Procedure(s): MM tomosynthesis screening BI Accession Number(s): [id number] cc: China Lemon MD EXAMINATION: MM SCREENING DIGITAL BREAST TOMOSYNTHESIS, BILATERAL CLINICAL INFORMATION: Screening. Asymptomatic. COMPARISON: Mammography: Comparison is made with available priors TECHNIQUE: Digital breast mammography with tomosynthesis is performed in both the craniocaudal and mediolateral oblique views along with computer-aided detection (CAD). FINDINGS: There are scattered areas of fibroglandular density (ACR BI-RADS breast composition Category b). There are no significant masses, abnormal calcifications, or other abnormalities. MM/MM tomosynthesis screening BI IMPRESSION: No mammographic evidence of malignancy. ASSESSMENT: BI-RADS BI-RADS 1 - Negative RECOMMENDATION: Routine annual mammography screening. 1 year F/U This examination should not preclude the clinical evaluation of a suspicious palpable abnormality. This patient's information was entered into a reminder system with a target due date for their next mammogram. Electronically signed by: Jeri Calhoun DO 06/04/2025 01:54 PM EDT Dictated By: Jeri Calhoun DO Signed By: <Electronically signed by Jeri Calhoun DO in OV> 06/04/25 1354 DD/ 1440 TD/TT: 06/01/25 1500 Manager Sterile: Procedure Note Donotuseinterpreter, Image - 06/04/2025 [facility] [address] [place] [address] [address] [place], [place] [address] Mammography Report Signed Patient: Jennifer Brewster MR#: [id number] : 1950cct:[id number] Age/Sex: 75 / FADM Date: 06/01/25 Loc: HO.MAMMO Attending Dr: China Lemon MD Ordering Physician: China Lemon MDResults: 1Nega tive Date of Service: 06/01/25Follow Up: 1 Year From Orig inal Mammogram Procedure(s): MM tomosynthesis screening BI Accession Number(s): [id number] cc: China Lemon MD EXAMINATION: MM SCREENING DIGITAL BREAST TOMOSYNTHESIS, BILATERAL CLINICAL INFORMATION: Screening. Asymptomatic. COMPARISON: Mammography: Comparison is made with available priors TECHNIQUE: Digital breast mammography with tomosynthesis is performed in both the craniocaudal and mediolateral oblique views along with computer-aided detection (CAD). FINDINGS: There are scattered areas of fibroglandular density (ACR BI-RADS breast composition Category b). There are no significant masses, abnormal calcifications, or other abnormalities. MM/MM tomosynthesis screening BI IMPRESSION: No mammographic evidence of malignancy. ASSESSMENT: BI-RADS BI-RADS 1 - Negative RECOMMENDATION: Routine annual mammography screening. 1 year F/U This examination should not preclude the clinical evaluation of a suspicious palpable abnormality. This patient's information was entered into a reminder system with a target due date for their next mammogram. Electronically signed by: Jeri Calhoun DO 06/04/2025 01:54 PM EDT Dictated By: Jeri Calhoun DO Signed By: <Electronically signed by Jeri Calhoun DO in OV> 06/04/25 1354 DD/ 1440 TD/TT: 06/01/25 1500 Manager Sterile: us China Lemon MD IM BI PROCEDURES Final Resul t * Lipid Panel, Standard (03/01/2023 8:06 AM EDT) Cholesterol, Total 189 <200 mg/dL [facility] [employer] [place] [facility] HDL Cholesterol 67 > OR = 50 mg/dL [facility] [employer] [facility] [place] [facility] Triglycerides 143 <150 mg/dL [facility] [employer] [facility] [place] [facility] LDL Cholesterol 98 mg/dL (calc) [facility] Comment: Reference range: <100 Desirable range <100 mg/dL for primary prevention; <70 mg/dL for patients with CHD or diabetic patients with > or = 2 CHD risk factors. LDL-C is now calculated using the Andie calculation, which is a validated novel method providing better accuracy than the Friedewald equation in the estimation of LDL-C. Alexis HAGAN et al. KHOA. 2013;310(19): 1812-6314 (http://education.Stratoscale/faq/NUY111) Chol/HDLC Ratio 2.8 <5.0 (calc) [facility] Non-HDL Cholesterol 122 <130 mg/dL (calc) [facility] Comment: For patients with diabetes plus 1 major ASCVD risk factor, treating to a non-HDL-C goal of <100 mg/dL (LDL-C of <70 mg/dL) is considered a therapeutic option. Blood Venous blood specimen / Unknown 03/01/2023 8:06 AM EDT 03/01/2023 8:07 AM EDT Narrative [facility] - 03/01/2023 8:14 PM EDT FASTING:YES FASTING: YES China Lemon MD LAB BLOOD ORDERABLES Final Re sult [facility] [address], [place] [address] [facility] [employer] [facility] [place] [facility] [address] [place] [address] * (ABNORMAL) Colonoscopy (05/04/2022) Colonoscopy Abnormal(A ) Normal Narrative Shilpi Barrera - 05/04/2022 Tubular adenoma, f/up in 3 yrs, [facility] [place] [facility] Historical Provider HEALTH MAINTENANCE Edited Result - Final * HEPATITIS C AB W/REFL TO HCV RNA, QN, PCR (10/30/2021 10:15 AM EST) HEPATITIS C ANTIBODY NON-REACT BETTE NON-REACT BETTE [facility] INDEX 0.10 <1.00 [facility] Comment: HCV antibody was non-reactive. There is no laboratory evidence of HCV infection. In most cases, no further action is required. However, if recent HCV exposure is suspected, a test for HCV RNA (test code 08968) is suggested. For additional information please refer to http://ASP64.[employer]/faq/WST64y6 (This link is being provided for informational/ educational purposes only.) 10/30/2021 10:1 5 AM EST us China Lemon MD HISTORICAL/NON ORDERABLE LABS Final Result [facility] [address] from Last 3 Months or Most Recently Relevant to Health Maintenance Insurance [facility] [place] [id number] [place] [id number] Care Teams [employer] Reading Teacher Relationship Specialty Start Date End Date China Lemon MD [address] [place] [address] PCP - General Family Medicine 10/30/21
--- OUTSIDE RECORDS SUMMARY | 2025-07-15 15:50 | XMS_ITS | Encounter Summary ---
Author Organization [employer] Address [address] [place] [address] Care Team Providers Care Bow Stapler Name Role Phone China Lemon MD Primary Care Provider [phone] Encounter Details Date Type Department Care Team ([facility] st Contact Info) Description 11/01/2023 Telephone [facility] [address] [place] [address] China Lemon MD [address] [place], [place] [phone] Social History Tobacco Use Types Packs/Day Years [...] documented as of this encounter Care Teams Bow Stapler Relationship Specialty Start Date End Date China Lemon MD [address] [place] [address] PCP - General Family Medicine 10/30/21 documented as of this encounter
--- OUTSIDE RECORDS SUMMARY | 2025-07-15 15:50 | XMS_ITS | Encounter Summary ---
Author Organization [employer] Address [address] [facility] [address]t [place] [address] Care Team Providers Care Flat Cutter Name Role Phone China Lemon MD Primary Care Provider [phone] Reason for Visit * Reason Comments Med Refill Encounter Details Date Type Department Care Team ([facility] st Contact Info) Description 07/23/2024 Refill [facility] [address] [place], [place] [phone] China Lemon MD [address] [place] [address] Muscle spasm Social History Tobacco Use Types [...] documented as of this encounter Care Teams Flat Cutter Relationship Specialty Start Date End Date China Lemon MD [address] [place] [address] PCP - General Family Medicine 10/30/21 documented as of this encounter
--- OUTSIDE RECORDS SUMMARY | 2025-07-15 15:50 | XMS_ITS | Encounter Summary ---
Author Organization [employer] Address [address] [place] [address] Care Team Providers Care Hay Buckler Name Role Phone China Lemon MD Primary Care Provider [phone] Encounter Details Date Type Department Care Team ([facility] st Contact Info) Description 08/15/2023 Abstract [facility] [address] [place] [address] China Lemon MD [address] [place], [place] [phone] Social History Tobacco Use Types Packs/Day Years [...] documented as of this encounter Care Teams Hay Buckler Relationship Specialty Start Date End Date China Lemon MD [address] [place] [address] PCP - General Family Medicine 10/30/21 documented as of this encounter
--- OUTSIDE RECORDS SUMMARY | 2025-07-15 15:50 | XMS_ITS | Clinical Summary ---
Author Organization [address] [facility] Address [address] [place] [address] Phone Care Team Providers Care Travel Specialist Name Role Phone China Lemon MD Primary Care Provider [phone] Allergies Active Allergy Reactions Criticality Noted Date Comments Amlodipine Swelling 02/28/2024 BLE swelling Medications silver sulfADIAZINE (SSD) 1 % creamIndications: Ingrowing nail Apply topically 1 (one) time each day. 50 g 5 05/26/20 26 Active doxycycline (Vibramycin) 100 mg capsule Take 1 capsule (100 mg total) by mouth 2 (two) times a day for 7 days. 14 capsule 5 06/17/20 25 Encounters Date Type Department Care Team Description 07/07/2025 9:15 AM EDT Office Visit Orthopedic Surgery [facility] [address] [phone] Mason Austin DPPoornima Pain in right foot (Primary Dx); Open wound of right great toe, subsequent encounter; Chronic ulcer of right great toe, with fat layer exposed ([facility] V24, [facility] V28); PVD (peripheral vascular disease) ([facility] V24) 06/24/2025 2:30 PM EDT Office Visit Orthopedic [facility] [address] [phone] Mason Austin DPM Open wound of right great toe, subsequent encounter (Primary Dx); Pain in right foot; Venous insufficiency 06/10/2025 2:45 PM EDT Office Visit Orthopedic [facility] [address] [phone] Mason Austin DPM Open wound of right great toe, initial encounter (Primary Dx); Cellulitis of right foot 06/02/2025 3:15 PM EDT Office Visit Orthopedic [facility] [address] [phone] Mason Austin DPM Cellulitis of right foot (Primary Dx); Pain in right foot 05/26/2025 1:15 PM EDT Consult Orthopedic [facility] [address] [phone] Mason Austin DPM Cellulitis of right foot [...] Care Team (Late st Contact Info) Description 07/21/2025 9:30 AM EDT Office Visit Orthopedic [facility] [address] [phone] Mason Austin DPM [address] [address] 09/09/2025 7:00 AM EST Ancillary Procedure [facility] [address] [phone] Health Maintenance Due Date Last Done Comments Breast Cancer Screening 1950 Colorectal Cancer Screening: Colonoscopy 1950 Depression Screening 09/30/2024 Falls Risk Assessment 03/03/2025 Hepatitis C Screening [...] topic Insurance MEDICAID - [place] Care Teams Travel Specialist Relationship Specialty Start Date End Date China Lemon MD [address] [place] [address] PCP - General Family Medicine 03/03/25
== END 2025-07-15 14:21 | disposition home or self-care (01) ==
LOC: HO.HOS 12:43
PROVIDERS: PCP Family Medicine; Visit Provider Orthopaedic Surgery
DX: M17.11 Unilateral primary osteoarthritis, right knee (principal)
CPT/HCPCS: 20610; 99214

== ENCOUNTER → 2025-07-15 12:43 | Outpatient (BNVA) | payer MEDICAID, SELFPAY | PROVIDERS: PCP Family Medicine; Visit Provider Orthopaedic Surgery | DX: M17.11 Unilateral primary osteoarthritis, right knee (principal) | CPT/HCPCS: 20610; 99212; J0665; J1100; J2003 ==

== ENCOUNTER 2025-08-13 13:48 | Outpatient (AMB) | payer MEDICAID, SELFPAY ==
[2025-08-13 13:51] VITALS: BP 119/68; PULSE 72; O2SAT 97; BMI 28.7
--- NOTE | 2025-08-13 13:51 | MHC.OFFVIS ---
Vital Signs 08/13/25 13:51 Height 4 ft 8 in Weight 128 lb BMI 28.7 BP 119/68 Blood Pressure Location Rt brachial Position Sitting Pulse 72 Pulse Source Pulse Oximeter Pulse Oximetry (%) 97 Oxygen Delivery Method Room Air Intake Visit Reasons: Dyspnea Allergies No Known Allergies Allergy (Verified 08/13/25 13:56) HPI Comments Details: The patient is a 75-year-old woman originally from [facility] with a history of COPD. the patient has been a lifelong nonsmoker. However, she was exposed to significant bio fuels while cooking with wood stove With poor ventilation. While in [place] she was placed on respiratory therapy including Salmeterol and also beclomethasone. she also has a rescue inhaler. The patient has been overall doing well. Denies any hospitalizations. However, she does have some increased chest tightness and some shortness of breath. Denies any productive phlegm. She has never had allergy testing. Therefore will have her undergo pulmonary function studies in addition to blood work. However, this point she seems to be stable enough on her current regimen. 02/15/2022 The patient is here for a pulmonary follow up visit. The patient continues to have dyspnea on exertion, mild to moderate. The inhalers have been partially helpful. We did review her PFTs demonstrating moderate COPD. No significant allergies noted. We will adjust her respiratory inhalers. 08/17/2022 the patient is here for a pulmonary follow-up visit. She continues to do very well. The patient has responded well to the Incruse inhaler. She actually has not had to use her QVAR nor the Breo. She also has not required her short-acting beta agonist. However, now will going to the winter months. This is usually when her when her airway disease becomes more effective. Therefore, we will recommend that she restart her QVAR if her symptoms start worsening. Will hold off on the Breo this time. The patient has not had any recent x-rays. Will have her follow-up in 6 months with the chest x-ray the same day. If the patient has any issues prior to that she is to have her x-ray done earlier and give us a call. 03/08/2023 the patient is here for pulmonary follow-up visit. Overall she is doing well from a respiratory status. She has been using uterus and is been very affecting beneficial. She has not had to use her rescue inhaler. She has got back from [place] where she spent a good amount of time. She was limited mainly due to her physical issues as opposed to her respiratory symptoms. She has not had any exacerbations and has not required any prednisone or antibiotics. The patient also also a chest x-ray but she has not has not as of yet. We did review her PFTs from 2021 them straightening and obstructive ventilatory defect consistent with moderate COPD. 03/05/2024 the patient is here for a pulmonary follow-up visit. Overall the patient has been doing well. She continues on the Incruse. Has not had any exacerbations. Has not required her rescue inhaler. At this point she is doing very good with minimal medication. She does need to have surgery for her back. She is going to have that soon. I do not foresee any respiratory issues. Although she should continue the Incruse for now. The patient did have a chest x-ray back in 08/19/2023 which I personally reviewed. Has significant granulomas in her lungs bilaterally and unchanged. This is likely from a previous infection. Will go ahead and repeat the chest x-ray in the fall of 2023. If she has any worsening respiratory symptoms prior to that she will call the office and get the x-ray at an earlier time. 08/13/2025 the patient is here for pulmonary follow-up visit. Overall she is doing well. She continues on the Incruse the Incruse has been effective for her. She has not had to use her rescue inhaler. Which is reassuring. We did review her last chest x-ray from 2022 demonstrating multiple significant granulomas due to previous infections. Will have her repeat the x-ray at this time. And based on the repeat I did personally reviewed demonstrating no acute disease all chronic changes. The patient is having issues with the knee. She is going to need a total knee replacement. From a pulmonary standpoint she is doing very good and she may be able to proceed with anesthesia and Orthopedic surgery at this time. The patient will also monitor closely her symptoms. If she does develop any worsening respiratory symptoms we can also consider switching over to Anoro for additional bronchodilation effect. The patient will follow-up in a year's time if she has any issues she can always call for an earlier assessment and recommendations. [facility] Medical History (Updated 08/13/25 @ 16:27 by Jose Lovelace MD) Arthritis Numbness Elevated cholesterol HTN (hypertension) Pulmonary nodules Lumbar disc herniation with radiculopathy Lumbar spinal stenosis Left lumbar radiculitis Chronic back pain Tubular adenoma Allergies Asthma-COPD overlap syndrome Chronic cough Asthma Surgical History (Updated 03/30/24 @ 10:12 by RUDDY Flowers) Hx of colonoscopy History of surgery on lower extremity Family History Daughter Stomach cancer Daughter HTN (hypertension) Daughter HTN (hypertension) Social History Household Members: Children Housing: House Are you a primary daycare director to a significant other at home: No Do you presently have visiting nurse or other home services: No Patient Tobacco Use Status: Never used Tobacco Second Hand Smoke Exposure: No service: No Current occupational status: retired and disabled Current occupation: rt hand Review of Systems Const Denies fever(s) and Denies weight loss Eyes Denies change in vision ENT Denies change in voice and Reports nasal discharge Card Denies chest pain and Denies dyspnea on exertion Resp Reports cough, Denies dyspnea on exertion and Denies wheezing GI Reports no additional complaints and Denies heartburn Musc Reports as per HPI, Reports myalgias and Reports arthralgias Skin/Breast Denies rash Neuro Reports no additional complaints Aller/Immun Denies wheezing Physical Exam Vital Signs: Last Vital Signs Pulse 72 08/13/25 13:51 BP 119/68 08/13/25 13:51 Pulse Ox 97 08/13/25 13:51 Oxygen Delivery Method Room Air 08/13/25 13:51 BMI result Body Mass Index 28.7 Const General: alert Neck Neck: Yes normal visual inspection, Yes full ROM and Yes no lymphadenopathy Chest Chest palpation & inspection: normal inspection of the chest Resp Auscultation: diminished lung sounds Cardio Rate: regular rate Rhythm: regular rhythm Heart sounds: S1 normal heart sound present and S2 normal heart sound present GI Palpation (GI): Soft to palpation and nontender Auscultation: normal bowel sounds Skin General skin exam: rashes and/or lesions noted Assessment & Plan Assessment & Plan (1) Asthma-COPD overlap syndrome: Code(s): J44.9 - Chronic obstructive pulmonary disease, unspecified Category: Medical (2) Pulmonary nodules: Code(s): R91.8 - Other nonspecific abnormal finding of lung field Category: Medical (3) Pre-op chest exam: Code(s): Z01.811 - Encounter for preprocedural respiratory examination Category: Medical Plan continue Incruse, consider Anoro DELMER as needed CXR proceed with anesthesia and orthopedic surgery from a pulmonary standpoint F/U 1 yr Orders: Orders XR chest 2V 08/13/25 R91.8 - Other nonspecific abnormal finding of lung field Medications: Changed From albuterol sulfate 90 mcg/actuation 2 inhalations inhalation Q8-12H PRN shortness of breath or wheezing To albuterol sulfate 90 mcg/actuation 2 inhalations inhalation Q8-12H PRN 8.5 grams 11RF shortness of breath or wheezing 30 days Refilled umeclidinium 62.5 mcg/actuation (Incruse Ellipta) 1 inh inhalation DAILY 30 ea 11RF Coding Level of Care Code Est Pt Level 4 (68299) Diagnoses Asthma-COPD overlap syndrome J44.9 Pulmonary nodules R91.8 Pre-op chest exam Z01.811 Time Spent (min) 16
--- OUTSIDE RECORDS SUMMARY | 2025-08-13 20:11 | XMS_ITS | Encounter Summary ---
Author Organization [employer] Address [address] [facility] 7t [place] [address] Care Team Providers Care Magnet Valve Assembler Name Role Phone China Lemon MD Primary Care Provider [phone] Encounter Details Date Type Department Care Team (Late st Contact Info) Description 08/13/2025 Orders Only [facility] External Provider, [facility] Social History Tobacco Use Types Packs/Day Years [...] Name Priority Date/Time Associated Diagnosis Comments XR CHEST 2 VIEWS Routine 08/13/2025 2:37 PM EST documented in this encounter Results * XR Chest 2 Views (08/13/2025 2:37 PM EST) Anatomical Region Laterality Modality Chest Radiographic Marlene ging 08/13/2025 2:37 PM EST Narrative 08/13/2025 3:18 PM EST [place] [address] XRay Report Signed Patient: Jennifer Brewster MR#: [id number] : 1950 Acct:[id number] Age/Sex: 75 / F ADM Date: 08/13/25 Loc: ALE Attending Dr: Jose Lovelace MD Ordering Physician: Jose Lovelace MD Date of Service: 08/13/25 Procedure(s): XR chest 2V Accession Number(s): [id number] cc: Jose Lovelace MD; China Lemon MD Reason for Exam: R91.8 - Other nonspecific abnormal finding of lung field EXAMINATION: XR CHEST CLINICAL INFORMATION: R91.8 - Other nonspecific abnormal finding of lung field COMPARISON: Chest 08/29/2023 TECHNIQUE: 2 views of the chest were obtained. FINDINGS: The lungs are well-expanded with bilateral calcified lesions throughout both upper and midlung likely granulomas, unchanged to previous study. There is no new acute consolidation or mass or pleural effusion. Heart size and poor vascularity is normal. There is mild scoliosis dorsal spine. No aggressive lytic or sclerotic process seen. XR/XR chest 2V IMPRESSION: Multiple bilateral calcified lesions in both upper lobes and mid lung, stable. Mild scoliosis of dorsal spine. Electronically signed by: Donal Sommers MD 08/13/2025 03:14 PM EST RP Dictated By: Donal Sommers MD Signed By: <Electronically signed by Donal Sommers MD in OV> 08/13/25 1514 DD/ 1437 TD/TT: 08/13/25 1447 Corrections Officer[place] [facility] [place] Note Donotuseinterpreter, Image - 08/13/[address] [address] XRay Report Signed Patient: Jennifer Brewster MR#: [id number] : 2Acct:[id number] Age/Sex: 75 / FADM Date: 08/13/25 Loc: HO.XRAY Attending Dr: Jose Lovelace MD Ordering Physician: Jose Lovelace MD Date of Service: 08/13/25 Procedure(s): XR chest 2V Accession Number(s): [id number] cc: Jose Lovelace MD; China Lemon MD Reason for Exam: R91.8 - Other nonspecific abnormal finding of lung field EXAMINATION: XR CHEST CLINICAL INFORMATION: R91.8 - Other nonspecific abnormal finding of lung field COMPARISON: Chest 08/29/2023 TECHNIQUE: 2 views of the chest were obtained. FINDINGS: The lungs are well-expanded with bilateral calcified lesions throughout both upper and midlung likely granulomas, unchanged to previous study. There is no new acute consolidation or mass or pleural effusion. Heart size and poor vascularity is normal. There is mild scoliosis dorsal spine. No aggressive lytic or sclerotic process seen. XR/XR chest 2V IMPRESSION: Multiple bilateral calcified lesions in both upper lobes and mid lung, stable. Mild scoliosis of dorsal spine. Electronically signed by: Donal Sommers MD 08/13/2025 03:14 PM EST RP Dictated By: Donal Sommers MD Signed By: <Electronically signed by Donal Sommers MD in OV> 08/13/25 1514 DD/ 1437 TD/TT: 08/13/25 1447 Corrections Officer: [facility] External Provider IMG XR PROCEDURES Final Result documented in this encounter Visit Diagnoses Not on filedocumented in this encounter Additional Health Concerns Assessment Noted Time PHQ-9 Depression Total Score: 3 12/30/19 24 9:17 AM EDT documented as of this encounter Care Teams Magnet Valve Assembler Relationship Specialty Start Date End Date China Lemon MD [address] [place] [address] PCP - General Family Medicine 10/30/21 documented as of this encounter
--- OUTSIDE RECORDS SUMMARY | 2025-08-13 20:11 | XMS_ITS | Encounter Summary ---
Author Organization [employer] Address [address] [facility] [address] 7t [place] [address] Care Team Providers Care Boiler Shop Mechanic Name Role Phone China Lemon MD Primary Care Provider [phone] Encounter Details Date Type Department Care Team ([facility] st Contact Info) Description 11/01/2023 Telephone [facility] MEDICINE [address] [place] [address] China Lemon MD [address] [place], [place] [phone] Social History Tobacco Use Types Packs/Day Years [...] documented as of this encounter Care Teams Boiler Shop Mechanic Relationship Specialty Start Date End Date China Lemon MD [address] [place] [address] PCP - General Family Medicine 10/30/21 documented as of this encounter
--- OUTSIDE RECORDS SUMMARY | 2025-08-13 20:11 | XMS_ITS | Clinical Summary ---
Author Organization [address] [facility] Address [address] [place] [address] Phone Care Team Providers Care Expansion Joint Finisher Name Role Phone China Lemon MD Primary Care Provider [phone] Allergies Active Allergy Reactions Criticality Noted Date Comments Amlodipine Swelling 02/28/2024 BLE swelling Medications silver sulfADIAZINE (SSD) 1 % creamIndications: Ingrowing nail Apply topically 1 (one) time each day. 50 g 05/26/20 26 Active Encounters Date Type Department Care Team Description 07/07/2025 9:15 AM EDT Office Visit Orthopedic [facility] [address] [place] [phone] Mason Austin A, DPM Pain in right foot (Primary Dx); Open wound of right great toe, subsequent encounter; Chronic ulcer of right great toe, with fat layer exposed ([facility] V24, [facility] V28); PVD (peripheral vascular disease) ([facility] V24) 06/24/2025 2:30 PM EDT Office Visit Orthopedic [facility] [address] [phone] Mason Austin A, DPM Open wound of right great toe, subsequent encounter (Primary Dx); Pain in right foot; Venous insufficiency 06/10/2025 2:45 PM EDT Office Visit [place] [address] [phone] Mason Austin A, DPM Open wound of right great toe, initial encounter (Primary Dx); Cellulitis of right foot 06/02/2025 3:15 PM EDT Office Visit Orthopedic [address] [place] [phone] GeovannaMason pierre, DPPoornima Cellulitis of right foot (Primary Dx); Pain in right foot 05/26/2025 1:15 PM EDT Consult Orthopedic Surgery [facility] 250 175 [facility] 250 [place] [phone] Mason Austin, DPPoornima Cellulitis of right foot (Primary Dx); Ingrowing [...] Upcoming Encounters Date Type Department Care Team ([facility] Contact Info) Description 09/09/2025 7:00 AM EST Ancillary Procedure [facility] 101 300 [facility] 101 [place] [phone] Health Maintenance Due Date Last Done Comments [...] topic Insurance MEDICAID - [place] Care Teams Expansion Joint Finisher Relationship Specialty Start Date End Date China Lemon MD [address] [place] [address] PCP - General Family Medicine 03/03/25
--- OUTSIDE RECORDS SUMMARY | 2025-08-13 20:11 | XMS_ITS | Encounter Summary ---
Author Organization [employer] Address [address] [facility] [address] 7t [place] [address] Care Team Providers Care Home Health Care Social Worker Name Role Phone China Lemon MD Primary Care Provider [phone] Encounter Details Date Type Department Care Team ([facility] st Contact Info) Description 08/15/2023 Abstract [facility] MEDICINE 230 [place] [address] China Lemon MD [address] [place], [place] [phone] Social History Tobacco Use Types Packs/Day Years [...] documented as of this encounter Care Teams Home Health Care Social Worker Relationship Specialty Start Date End Date China Lemon MD [address] [place] [address] PCP - General Family Medicine 10/30/21 documented as of this encounter
--- OUTSIDE RECORDS SUMMARY | 2025-08-13 20:11 | XMS_ITS | Clinical Summary ---
Author Organization [employer] Address [address] [place] [address] 7t [place] [address] Care Team Providers Care Leaf Binner Name Role Phone China Lemon MD Primary Care Provider Allergies Active Allergy Reactions Criticality Noted Date [...] minutes 12 tablet 1 03/16/20 25 Active polyvinyl alcohol (Liquifilm Tears) 1.4 % ophthalmic solution INSTILL 1 DROP IN IN EACH EYE TWICE DAILY 15 mL 3 05/24/20 25 Active Umeclidinium Sabula (Incruse Ellipta) 62.5 MCG/ACT aerosol powder Inhale 1 Act (62.5 mcg) Once per day. 30 each 5 5 9:44 AM EST 05/27/20 25 Active atorvastatin (Lipitor) 80 MG tablet TAKE 1 TABLET BY MOUTH DAILY AT BEDTIME 90 tablet 1 06/08/20 25 Active celecoxib (CeleBREX) 100 MG capsule TAKE 1 CAPSULE BY MOUTH TWICE DAILY 60 capsule 5 5 9:44 AM EST 06/18/20 25 Active Ketotifen Fumarate 0.035 % solution PLACE 1 DROP IN EACH EYE TWICE DAILY 10 mL 1 07/08/20 25 Active Acetaminophen Extra Strength 500 MG tablet TAKE 1 TABLET BY MOUTH EVERY 6 HOURS NEEDED FOR PAIN 60 tablet 1 5 9:44 AM EST 08/02/20 25 Active lidocaine (Lidoderm) 5 % patchIndication s:Muscle spasm APPLY 1 PATCH TOPICALLY TO SKIN, LEAVE ON FOR 12 HOURS AND OFF FOR 12 HOURS DIRECTED 30 patch 1 5 9:44 AM EST 08/02/20 25 Active lidocaine (Lidoderm) 5 % patchIndication s:Muscle spasm APPLY 1 PATCH TOPICALLY TO SKIN, LEAVE ON FOR 12 HOURS AND OFF FOR 12 HOURS DIRECTED 30 patch 1 04/08/20 025 Discontinued Acetaminophen Extra Strength 500 MG tablet TAKE 1 TABLET BY MOUTH EVERY 6 HOURS NEEDED FOR PAIN 60 tablet 1 06/18/20 025 Discontinued Active Problems Problem Noted Date Diagnosed Date Ingrown toenail of right foot 02/24/2025 Assessment & Plan (03/02/2025 8:26 AM EDT): Patient has been diagnosed with onychomycosis and an ingrown toenail on a right toe. Treatment has been delayed due to shirt turner availability issues. Plan: - Refer to podiatry [...] AM China Lemon MD [facility] Assessment & Plan (10/29/2023 3:58 PM [...] - If not covered by insurance, recommend [id number] purchase - Prescribe bilateral hip-high compression stockings [...] Encounters Date Type Department Care Team Description 08/13/2025 Orders Only [facility] External Provider, [facility] 08/01/2025 Refill [facility] MED & PEDS [address] [place] [address] China Lemon MD Muscle spasm 07/08/2025 Refill C [facility] MED [facility] PEDS [address] [place] [address] China Lemon MD 06/18/2025 Refill [facility] MED & PEDS [address] [place] [address] China Lemon MD 06/07/2025 Refill [facility] MED & PEDS [address] [place] [address] Mckayla Martinez MD 06/01/2025 Orders Only [facility] MED [facility] PEDS [address] [place], [place] [phone] China Lemon MD 05/26/2025 Telephone [facility] MEDICINE [address] [place] [address] China Lemon MD Med Refill 05/23/2025 Refill [facility] MED & PEDS [address] [place] [address] China Lemon MD from Last 3 Months [...] 2 VIEWS Routine 08/13/2025 2:37 PM EST BI MAMMOGRAM SCREENING TOMOSYNTHESIS BILATERAL Routine 06/01/2025 2:40 PM EDT LIPID PANEL, STANDARD Routine 03/01/2023 8:06 AM EDT Primary hypertension HM COLONOSCOPY Routine 05/04/2022 ZZZ HISTORICAL HEPATITIS C AB W/REFL TO HCV RNA, QN, PCR Routine 10/30/2021 10:15 AM EST from Last 3 Months or Most Recently Relevant to Health Maintenance Results * XR Chest 2 Views (08/13/2025 2:37 PM EST) Anatomical Region Laterality Modality Chest Radiographic Marlene ging 08/13/2025 2:37 PM EST Narrative 08/13/2025 3:18 PM EST [address] [address] XRay Report Signed Patient: Jennifer Brewster MR#: [id number] : 1950 Acct:[id number] Age/Sex: 75 / F ADM Date: 08/13/25 Loc: HO.XRAY Attending Dr: Jose Lovelace MD Ordering Physician: Jose Lovelace MD Date of Service: 08/13/25 Procedure(s): XR chest 2V Accession Number(s): [id number] cc: Jose Lovelace MD; China Lemon MD [...] Donal Sommers MD 08/13/2025 03:14 PM EST Dictated By: Donal Sommers MD Signed By: <Electronically signed by Donal Sommers MD in OV> 08/13/25 1514 DD/ 1437 TD/TT: 08/13/25 1447 Ointment Mill Tender: [facility] Procedure Note Donotuseinterpreter, Image - 08/13/[address] [address] XRay Report Signed Patient: Jennifer Brewster MR#: [id number] : 2Acct:[id number] Age/Sex: 75 / FADM Date: 08/13/25 Loc: HO.XRAY Attending Dr: Jose Lovelace MD Ordering Physician: Jose Lovelace MD Date of Service: 08/13/25 Procedure(s): XR chest 2V Accession Number(s): [id number] cc: Jose Lovelace MD; China Lemon MD [...] Donal Sommers MD 08/13/2025 03:14 PM EST Dictated By: Donal Sommers MD Signed By: <Electronically signed by Donal Sommers MD in OV> 08/13/25 1514 DD/ 1437 TD/TT: 08/13/25 1447 Ointment Mill Tender: [facility] External Provider IMG XR PROCEDURES Final Result * BI Mammogram Screening Tomosynthesis Bilateral (06/01/2025 2:40 PM EDT) Anatomical Region Laterality Modality Breast Bilateral Mammography 06/01/2025 2:40 PM EDT Narrative 06/04/2025 1:57 PM EDT [address] [place] [address] Mammography Report Signed Patient: Jennifer Brewster MR#: [id number] : 1950 Acct:[id number] Age/Sex: 75 / F ADM Date: 06/01/25 Loc: HO.MAMMO Attending Dr: China Lemon MD Ordering Physician: China Lemon MD Results: 1Nega tive Date of Service: 06/01/25 Follow Up: 1 Year From Orig inal Mammogram Procedure(s): MM tomosynthesis screening BI Accession Number(s): [id number] cc: China Lemon MD EXAMINATION: MM SCREENING [...] 06/04/25 1354 DD/ 1440 TD/TT: 06/01/25 1500 Ointment Mill Tender: Procedure Note Donotuseinterpreter, Image - 06/04/2025 [place] [facility]'s [address] [place] [address] Mammography Report Signed Patient: Jennifer Brewster MR#: [id number] : 2Acct:[id number] Age/Sex: 75 / FADM Date: 06/01/25 Loc: HO.MAMMO Attending Dr: China Lemon MD Ordering Physician: China Lemon MDResults: 1Nega tive Date of Service: 06/01/25Follow Up: 1 Year From Orig inal Mammogram Procedure(s): MM tomosynthesis screening BI Accession Number(s): [id number] cc: China Lemon MD EXAMINATION: MM SCREENING [...] 06/04/25 1354 DD/ 1440 TD/TT: 06/01/25 1500 Ointment Mill Tender: China Lemon MD [facility] [place] PROCEDURES Final Resul t * Lipid Panel, Standard (03/01/2023 8:06 AM EDT) Cholesterol, Total 189 <200 mg/dL [facility] HDL Cholesterol 67 > OR = 50 mg/dL [facility] Triglycerides 143 <150 mg/dL [facility] [place] [facility] LDL Cholesterol 98 mg/dL (calc) [facility] Comment: Reference range: <100 Desirable range <100 mg/dL for primary prevention; <70 mg/dL for patients with CHD or diabetic patients with > or = 2 CHD risk factors. LDL-C is now calculated using the Andie calculation, which is a validated novel method providing better accuracy than the Friedewald equation in the estimation of LDL-C. Alexis SS et al. HKOA. 2013;310(19): 1361-6346 (http://education.[employer]/faq/NZE726) Chol/HDLC Ratio 2.8 <5.0 (calc) [facility] Non-HDL Cholesterol 122 <130 mg/dL (calc) [facility] Comment: For patients with diabetes plus 1 major ASCVD risk factor, treating to a non-HDL-C goal of <100 mg/dL (LDL-C of <70 mg/dL) is considered a therapeutic option. Blood Venous blood specimen / Unknown 03/01/2023 8:06 AM EDT 03/01/2023 8:07 AM EDT Narrative [facility] - 03/01/2023 8:14 PM EDT FASTING:YES FASTING: YES China Lemon MD LAB BLOOD ORDERABLES Final Re sult [facility] [address], [place] [address] [facility] [place] [facility] 200 [place] [address] * (ABNORMAL) Colonoscopy (05/04/2022) Colonoscopy Abnormal(A ) Normal Narrative Shilpi Barrera - 05/04/2022 Tubular adenoma, f/up in 3 yrs, [place] [facility] [place] Historical Provider HEALTH MAINTENANCE Edited Result - Final * HEPATITIS C AB W/REFL TO HCV RNA, QN, PCR (10/30/2021 10:15 AM EST) HEPATITIS C ANTIBODY NON-REACT [facility] NON-REACT [facility] INDEX 0.10 <1.00 [facility] Comment: HCV antibody was non-reactive. There is no laboratory evidence of HCV infection. In most cases, no further action is required. However, if recent HCV exposure is suspected, a test for HCV RNA (test code 20870) is suggested. For additional information please refer to http://education.[employer]/faq/CHI89z8 (This link is being provided for informational/ educational purposes only.) 10/30/2021 10:1 5 AM EST us China Lemon MD HISTORICAL/NON ORDERABLE LABS Final Result [facility] [address] [place] [address], from Last 3 Months or Most Recently Relevant to Health Maintenance Insurance [facility] [place] [id number] [place] [address] [place] [address] Care Teams Leaf Binner Relationship Specialty Start Date End Date China Lemon MD [address] [place] [address] [place] [address] PCP - General Family Medicine 10/30/21
--- OUTSIDE RECORDS SUMMARY | 2025-08-13 20:11 | XMS_ITS | Encounter Summary ---
Author Organization [employer] Address 75 [facility] 7t [place] [address] Care Team Providers Care Real Estate Subagent Name Role Phone China Lemon MD Primary Care Provider [phone] Reason for Visit * Reason Comments Med Refill Encounter Details Date Type Department Care Team ([facility] st Contact Info) Description 07/23/2024 Refill [facility] CHC MED & PEDS 505 [place], [place] [phone] China Lemon MD 505 [place] [address] Muscle spasm Social History Tobacco Use Types [...] documented as of this encounter Care Teams Real Estate Subagent Relationship Specialty Start Date End Date China Lemon MD [address] [place] [address] PCP - General Family Medicine 10/30/21 documented as of this encounter
== END 2025-08-13 14:20 | disposition home or self-care (01) ==
LOC: HO.HPS 13:49
PROVIDERS: PCP Family Medicine; Visit Provider Hospitalist
DX: J44.9 Chronic obstructive pulmonary disease, unspecified (principal); R91.8 Other nonspecific abnormal finding of lung field; Z01.811 Encounter for preprocedural respiratory examination
CPT/HCPCS: 99214

== ENCOUNTER 2025-08-13 13:48 | Outpatient (REF) | payer MEDICAID, SELFPAY ==
--- NOTE | ~2025-08-13 | XR_ITS ---
EXAMINATION: XR CHEST CLINICAL INFORMATION: R91.8 - Other nonspecific abnormal finding of lung field COMPARISON: Chest 08/29/2023 TECHNIQUE: 2 views of the chest were obtained. FINDINGS: The lungs are well-expanded with bilateral calcified lesions throughout both upper and midlung likely granulomas, unchanged to previous study. There is no new acute consolidation or mass or pleural effusion. Heart size and poor vascularity is normal. There is mild scoliosis dorsal spine. No aggressive lytic or sclerotic process seen. XR/XR chest 2V IMPRESSION: Multiple bilateral calcified lesions in both upper lobes and mid lung, stable. Mild scoliosis of dorsal spine. Electronically signed by: Donal Sommers MD 08/13/2025 03:14 PM EST
== END 2025-08-13 13:49 | disposition home or self-care (01) ==
LOC: HO.XRAY 13:48
PROVIDERS: PCP Family Medicine; Visit Provider Hospitalist
DX: Z01.811 Encounter for preprocedural respiratory examination (principal); J44.9 Chronic obstructive pulmonary disease, unspecified; R91.8 Other nonspecific abnormal finding of lung field; Z79.51 Long term (current) use of inhaled steroids
CPT/HCPCS: 71046; 99212

== ENCOUNTER → 2025-08-13 14:23 | Outpatient (BNV) | payer MEDICAID, SELFPAY | PROVIDERS: PCP Family Medicine; Visit Provider Radiology Diagnostic Radiology | DX: R91.1 Solitary pulmonary nodule (principal); M41.34 Thoracogenic scoliosis, thoracic region | CPT/HCPCS: 71046 ==

== ENCOUNTER 2025-09-20 14:44 | Outpatient (REF) | payer MEDICAID, SELFPAY ==
--- NOTE | ~2025-09-20 | CT_ITS ---
EXAMINATION: CT KNEE WITHOUT CONTRAST, RIGHT CLINICAL INFORMATION: Primary osteoarthritis COMPARISON: None available. TECHNIQUE: Imaging of the right knee. Biomet protocol. DLP: 146 mGy/cm. FINDINGS/ CT/CT knee RT wo IV con IMPRESSION: Imaging of right knee was performed as per biomed protocol for Dr. Jesu Ignacio. No interpretation was needed. Electronically signed by: Ayden Campbell MD 09/21/2025 12:11 PM LELA
--- OUTSIDE RECORDS SUMMARY | 2025-09-20 17:59 | XMS_ITS | Encounter Summary ---
Author Organization [employer] Address 75 [facility] 7t [place] [address] Care Team Providers Care Laundry Superintendent Name Role Phone China Lemon MD Primary Care Provider [phone] Reason for Visit * Reason Comments Med Refill Encounter Details Date Type Department Care Team ([facility] st Contact Info) Description 07/23/2024 Refill [facility] CHC MED & PEDS [address] [place], [place] [phone] China Lemon MD 505 [place] [address] Muscle spasm Social History Tobacco Use Types [...] Care Team (Late st Contact Info) Description 10/07/2025 9:15 AM EST Office Visit [facility] CHC MED & PEDS [address] [place], [place] [phone] Migdalia Wells, STRUCTURAL STEEL WORKER 505 [place] [address] documented as of this encounter Visit Diagnoses Diagnosis Muscle spasm Spasm of muscle documented in this encounter Additional Health Concerns Assessment Noted Time PHQ-9 Depression Total Score: 3 12/30/19 24 9:17 AM EDT documented as of this encounter Care Teams Laundry Superintendent Relationship Specialty Start Date End Date China Lemon MD 230 [place] [address] PCP - General Family Medicine 10/30/21 documented as of this encounter
--- OUTSIDE RECORDS SUMMARY | 2025-09-20 17:59 | XMS_ITS | Encounter Summary ---
Author Organization [employer] Address [address] [facility] [address] 7[address] [place] [address] Care Team Providers Care Centralized Traffic Control Operator Name Role Phone China Lemon MD Primary Care Provider [phone] Encounter Details Date Type Department Care Team ([facility] st Contact Info) Description 11/01/2023 Telephone [facility] MEDICINE 230 [place] [address] China Lemon MD [address] [place], [place] [phone] Social History Tobacco Use Types Packs/Day Years [...] Description 10/07/2025 9:15 AM EST Office Visit [facility] MED & PEDS 505 [place], [place] [phone] Migdalia Wells CNP 505 [place], [place] [phone] documented as of this encounter Visit Diagnoses Not on filedocumented in this encounter Additional Health Concerns Assessment Noted Time PHQ-9 Depression Total Score: 4 12/27/19 23 3:31 PM EDT documented as of this encounter Care Teams Centralized Traffic Control Operator Relationship Specialty Start Date End Date China Lemon MD [address] [place] [address] PCP - General Family Medicine 10/30/21 documented as of this encounter
--- OUTSIDE RECORDS SUMMARY | 2025-09-20 17:59 | XMS_ITS | Encounter Summary ---
Author Organization [employer] Address [address] [facility] [address] [place] [address] Care Team Providers Care Wire Threader Name Role Phone China Lemon MD Primary Care Provider [phone] Encounter Details Date Type Department Care Team ([facility] st Contact Info) Description 08/15/2023 Abstract [facility] MEDICINE 230 [place] [address] China Lemon MD [address] [place], [place] [phone] Social History Tobacco Use Types Packs/Day Years [...] Description 10/07/2025 9:15 AM EST Office Visit [facility] MED & PEDS 505 [place], [place] [phone] Migdalia Wells CNP [address] [place], [place] [phone] documented as of this encounter Visit Diagnoses Not on filedocumented in this encounter Additional Health Concerns Assessment Noted Time PHQ-9 Depression Total Score: 4 12/27/19 23 3:31 PM EDT documented as of this encounter Care Teams Wire Threader Relationship Specialty Start Date End Date China Lemon MD 230 [place] [address] PCP - General Family Medicine 10/30/21 documented as of this encounter
--- OUTSIDE RECORDS SUMMARY | 2025-09-20 18:00 | XMS_ITS | Clinical Summary ---
Author Organization [employer] Address [address] [place] [address] [address] [place] [address] Care Team Providers Care Wastewater Manager Name Role Phone China Lemon MD Primary Care Provider [phone] Allergies Active Allergy Reactions Criticality Noted Date Comments Amlodipine Swelling 02/28/2024 BLE swelling Medications GaviLAX 17 GM/SCOOP powder TAKE 17 GM MIXED IN 8 OUNCES OF WATER, COFFEE OR TEA ONCE DAILY 2 Active clotrimazole-bet amethasone (Lotrisone) cream APPLY TO AFFECTED AREA(S) AND SURROUNDING AREA(S) TWICE DAILY IN THE MORNING AND EVENING 2 Active cetirizine (ZyrTEC) 10 MG tablet Take 10 mg by mouth in the morning. 2 Active Calcium Carb-Cholecalcif clark (Calcium 500 +D) 500-10 MG-MCG tabletIndication s:Age-related osteoporosis without current pathological fracture Take 1 tablet by mouth 2 times daily. 180 tablet 4 3 Active albuterol (Ventolin HFA) 108 (90 Base) MCG/ACT inhaler INHALE 2 PUFFS EVERY 4 HOURS NEEDED FOR WHEEZING 18 g 5 3 Active olopatadine (Pataday) 0.2 % ophthalmic solution Administer 1 drop into affected eye(s) in the morning. 2.5 mL 2 3 Active diclofenac (Cataflam) 50 MG tablet Take 1 tablet (50 mg) by mouth 3 times daily. 90 tablet 4 Active Artificial Tears 0.2-0.2-1 % solution Administer 1 drop into both eyes 2 times daily. 15 mL 3 4 Active fluticasone (Flonase) 50 MCG/ACT nasal sprayIndications :Viral URI with cough Administer 2 sprays into each nostril Once per day. Shake gently. Before first use, prime pump. After use, clean tip and replace cap. 16 g 1 4 Active ofloxacin (Ocuflox) 0.3 % ophthalmic solutionIndicati ons:Chronic non-infective otitis externa of both ears, unspecified type Instill 10 drops each ear for 7 days. 10 mL 4 Active losartan (Cozaar) 100 MG tablet TAKE 1 TABLET BY MOUTH EVERY DAY 90 tablet 1 5 Active alendronate (Fosamax) 70 MG tabletIndication s:Age-related osteoporosis without current pathological fracture take 1 tablet by mouth once a week with 6 to 8 oz of water 30 min before first food of day. do not lie down for 30 minutes 12 tablet 1 5 Active polyvinyl alcohol (Liquifilm Tears) 1.4 % ophthalmic solution INSTILL 1 DROP IN IN EACH EYE TWICE DAILY 15 mL 3 5 Active Umeclidinium [place] (Incruse Ellipta) 62.5 MCG/ACT aerosol powder Inhale 1 Act (62.5 mcg) Once per day. 30 each 5 08/11/2025 9:44 AM EST 5 Active atorvastatin (Lipitor) 80 MG tablet TAKE 1 TABLET BY MOUTH DAILY AT BEDTIME 90 tablet 1 5 Active celecoxib (CeleBREX) 100 MG capsule TAKE 1 CAPSULE BY MOUTH TWICE DAILY 60 capsule 5 09/13/2025 9:25 AM EST 5 Active Ketotifen Fumarate 0.035 % solution PLACE 1 DROP IN EACH EYE TWICE DAILY 10 mL 1 09/13/2025 9:25 AM EST 5 Active Acetaminophen Extra Strength 500 MG tablet TAKE 1 TABLET BY MOUTH EVERY 6 HOURS NEEDED FOR PAIN 60 tablet 1 08/11/2025 9:44 AM EST 5 Active lidocaine (Lidoderm) 5 % patchIndications :Muscle spasm APPLY 1 PATCH TOPICALLY TO SKIN, LEAVE ON FOR 12 HOURS AND OFF FOR 12 HOURS DIRECTED 30 patch 1 09/13/2025 9:25 AM EST 5 Active Active Problems Problem Noted Date Diagnosed Date Ingrown toenail of right foot 02/24/2025 Assessment & Plan (03/02/2025 8:26 AM EDT): Patient has been diagnosed with onychomycosis and an ingrown toenail on a right toe. Treatment has been delayed due to reading specialist availability issues. Plan: - Refer to podiatry [...] 9:[address] [facility] Assessment & Plan (10/29/2023 3:58 PM [...] - If not covered by insurance, recommend [id number] purchase - Prescribe bilateral hip-high compression stockings [...] Encounters Date Type Department Care Team Description 08/30/2025 Telephone [facility] [address] [place] [address] China Lemon MD Pre-op Exam 08/13/2025 Orders Only [facility] External Provider, [facility] 08/01/2025 Refill [facility] [address] [place] [address] China Lemon MD Muscle spasm 07/08/2025 Refill [facility] [address] [place] [address] China Lemon MD from Last 3 Months [...] your housing situation today? I have geno alisson 11/26/[address] you li [...] 02/24/2025 3:56 PM EDT Plan of Treatment Upcoming Encounters Date Type Department Care Team ([facility] st Contact Info) Description 10/07/2025 9:15 AM EST Office Visit [facility] [address] [place] [address] Migdalia Wells, SKIN PASS OPERATOR [address] [place] [address] Health Maintenance Due Date Last Done Comments [...] PM EST Narrative 08/13/2025 3:18 PM EST [address] [address] XRay Report Signed Patient: Jennifer Brewster MR#: [id number] : 1950 Acct:[id number] Age/Sex: 75 / F ADM Date: 08/13/25 Loc: HO.XRAY Attending Dr: Jose Lovelace MD Ordering Physician: Jose Lovelace MD Date of Service: 08/13/25 Procedure(s): XR chest 2V Accession Number(s): [id number] cc: Jose Lovelace MD; China Lemon MD [...] 08/13/25 1514 DD/ 1437 TD/TT: 08/13/25 1447 Theatre Arts Professor: [facility] Procedure Note Donotuseinterpreter, Image - 08/13/2025 [place] [address] XRay Report Signed Patient: Jennifer Brewster MR#: [id number] : 1950cct:[id number] Age/Sex: 75 / FADM Date: 08/13/25 Loc: ALE Attending Dr: Jose Lovelace MD Ordering Physician: Jose Lovelace MD Date of Service: 08/13/25 Procedure(s): XR chest 2V Accession Number(s): [id number] cc: Jose Lovelace MD; China Lemon MD [...] 08/13/25 1514 DD/ 1437 TD/TT: 08/13/25 1447 Theatre Arts Professor: [facility] External Provider IMG XR PROCEDURES Final Result * BI Mammogram Screening Tomosynthesis Bilateral (06/01/2025 2:40 PM EDT) Anatomical Region Laterality Modality Breast Bilateral Mammography 06/01/2025 2:40 PM EDT Narrative 06/04/2025 1:57 PM EDT [facility] [address] [place] [address] Mammography Report Signed Patient: Jennifer Brewster MR#: [id number] : 1950 Acct:[id number] Age/Sex: 75 / F ADM Date: 06/01/25 Loc: HO.MAMMO Attending Dr: China Lemon MD Ordering Physician: China Lemon MD Results: 1Nega tive Date of Service: 06/01/25 Follow Up: 1 Year From Orig inal Mammogram Procedure(s): MM tomosynthesis screening BI Accession Number(s): [id number] cc: China Lemon MD EXAMINATION: MM SCREENING [...] Jeri Calhoun DO 06/04/2025 01:54 PM EDT RP Dictated By: Jeri Calhoun DO Signed By: <Electronically signed by Jeri Calhoun DO in OV> 06/04/25 1354 DD/ 1440 TD/TT: 06/01/25 1500 Theatre Arts Professor: Procedure Note Donotuseinterpreter, Image - [facility]/04/[facility] [address] [place] [address] Mammography Report Signed Patient: Jennifer Brewster MR#: [id number] : 2Acct:[id number] Age/Sex: 75 / FADM Date: 06/01/25 Loc: HO.MAMMO Attending Dr: China Lemon MD Ordering Physician: China Lemon MDResults: 1Nega tive Date of Service: 06/01/25Follow Up: 1 Year From Orig inal Mammogram Procedure(s): MM tomosynthesis screening BI Accession Number(s): [id number] cc: China Lemon MD EXAMINATION: MM SCREENING [...] Jeri Calhoun DO 06/04/2025 01:54 PM EDT RP Dictated By: Jeri Calhoun DO Signed By: <Electronically signed by Jeri Calhoun DO in OV> 06/04/25 1354 DD/ 1440 TD/TT: 06/01/25 1500 Theatre Arts Professor: us China Lemon MD IMG BI PROCEDURES Final Resul t * Lipid Panel, Standard (03/01/2023 8:06 AM EDT) Cholesterol, Total 189 <200 mg/dL [facility] HDL Cholesterol 67 > OR = 50 mg/dL [facility] Triglycerides 143 <150 mg/dL [facility] LDL Cholesterol 98 mg/dL (calc) [facility] Comment: Reference range: <100 Desirable range <100 mg/dL for primary prevention; <70 mg/dL for patients with CHD or diabetic patients with > or = 2 CHD risk factors. LDL-C is now calculated using the Andie calculation, which is a validated novel method providing better accuracy than the Friedewald equation in the estimation of LDL-C. Alexis HAGAN et al. KHOA. 2013;310(19): 9258-0875 (http://education.[employer].[facility]/faq/UPY165) Chol/HDLC Ratio 2.8 <5.0 (calc) [facility] Non-HDL Cholesterol 122 <130 mg/dL (calc) [facility] Comment: For patients with diabetes plus 1 major ASCVD risk factor, treating to a non-HDL-C goal of <100 mg/dL (LDL-C of <70 mg/dL) is considered a therapeutic option. Blood Venous blood specimen / Unknown 03/01/2023 8:06 AM EDT 03/01/2023 8:07 AM EDT Narrative [facility] - 03/01/2023 8:14 PM EDT FASTING:YES FASTING: YES China Lemon MD LAB BLOOD ORDERABLES Final Re sult [address], [place] [address] [facility] [address] [place] [address] * (ABNORMAL) Colonoscopy (05/04/2022) Colonoscopy Abnormal(A ) Normal Narrative Shilpi Barrera - 05/04/2022 Tubular adenoma, f/up in 3 yrs, had colonoscopy in [facility] Historical Provider HEALTH MAINTENANCE Edited Result - [...] a test for HCV RNA (test code 39688) is suggested. For additional information please refer to http://education.[facility]/faq/EKE88t1 (This link is being provided for informational/ educational purposes only.) 10/30/2021 10:1 5 AM EST us China Lemon MD HISTORICAL/NON ORDERABLE LABS Final Result [facility] [address] from Last 3 Months or Most Recently Relevant to Health Maintenance Insurance [facility] STANDARD Care Teams Wastewater Manager Relationship Specialty Start Date End Date China Lemon MD [address] [place] [phone] PCP - General Family Medicine 10/30/21
--- OUTSIDE RECORDS SUMMARY | 2025-09-20 18:00 | XMS_ITS | Clinical Summary ---
Author Organization [address] [place] [address] Address [address] [place] [address] Phone Care Team Providers Care Animal Ride Manager Name Role Phone China Lemon MD Primary Care Provider [phone] Allergies Active Allergy Reactions Criticality Noted Date Comments Amlodipine Swelling 02/28/2024 BLE swelling Medications silver sulfADIAZINE (SSD) 1 % creamIndications: Ingrowing nail Apply topically 1 (one) time each day. 50 g 05/26/20 26 Active Encounters Date Type Department Care Team Description 09/09/2025 7:00 AM EST Ancillary Procedure [facility] [address] [facility] [address] [place] [address] PVD (peripheral vascular disease) ([facility] V24) 07/07/2025 9:15 AM EDT Office Visit [facility] [address] [phone] Mason Austin DPM Pain in right foot (Primary Dx); Open wound of right great toe, subsequent encounter; Chronic ulcer of right great toe, with fat layer exposed ([facility] V24, [facility] V28); PVD (peripheral vascular disease) ([facility] V24) 06/24/2025 2:30 PM EDT Office Visit [facility] [address] [phone] Mason Austin, DPM Open wound of right great toe, subsequent encounter (Primary Dx); Pain in right foot; Venous insufficiency from Last 3 Months Social History Tobacco Use Types Packs/Day Years Used Date Smoking Tobacco: Never Assessed Comments Unknown Sex and Gender Information Value Date Recorded Sex Assigned at Not on file Legal Sex Female 8:07 AM EDT Gender Identity Not on file Sexual Orientation Not on file Plan of Treatment Health Maintenance Due Date Last Done Comments Breast Cancer Screening 1950 Colorectal Cancer Screening: Colonoscopy 1950 Depression Screening 09/30/2024 Falls Risk Assessment 03/03/2025 Hepatitis C Screening 03/03/2025 Osteoporosis Screening (Bone Density Screening) 03/03/2025 Social Influencers of Health Screening 03/03/2025 Hypertension/CHF/CAD Annual BMP Blood Test 05/26/2025 COVID-19 Vaccine ( season) 2025 08/01/2022, 12/27/2020 Cholesterol Screening (Lipid Panel) 03/01/2028 03/01/2023 DTaP,Tdap,and Td Vaccines (2 - Td or Tdap) 08/08/2033 08/08/2023 Zoster Vaccines Completed 03/01/2022, 12/08/2021 Pneumococcal Vaccine: 50+ Years Completed 08/08/2023, 12/04/2021 RSV Immunization Adult Patients Completed 07/02/2024 Influenza Vaccine Completed 08/13/2025, , 08/08/2023, Additional history exists HIB Vaccines Aged Out No longer eligi [...] 20 months Aged Out No longer eligible based on patient's age to complete this topic Varicella Vaccines Aged Out No longer eligible based on patient's age to complete this topic Procedures Procedure Name Priority Date/Time Associated Diagnosis Comments VAS US DUPLEX LOWER EXT ARTERIES BILAT WITH MARISOL Routine 09/09/2025 7:46 AM EST PVD (peripheral vascular disease) ([facility] V24) from Last 3 Months Results * Vascular US duplex lower extremity arteries bilateral with MARISOL (09/09/2025 7:46 AM EST) Left Dist External Iliac PSV 87 cm/s CV [facility] LAB Left Prox External Iliac PSV 61 cm/s [facility] Left AT dist sys PSV 106 cm/s CV [facility] Left AT mid sys PSV 102 cm/s CV VAS LAB Left AT prox sys PSV 74 cm/s CV VAS LAB Left BRICKMASON prox sys PSV 63 cm/s CV VAS LAB Left mid peroneal sys PSV 51 cm/s CV VAS LAB Left popliteal dist sys PSV 44 cm/s CV V[facility] LAB Left popliteal prox sys PSV 51 cm/s CV V[facility] LAB Left PT dist sys PSV 33 cm/s CV [facility] LAB Left PT mid sys PSV 62 cm/s CV [facility] Left PT prox sys PSV 40 cm/s CV [facility] Left super femoral dist sys PSV 58 cm/s CV [facility] Left super femoral mid sys PSV 89 cm/s CV [facility] LAB Left super femoral prox sys PSV 80 cm/s CV [facility] Right Dist External Iliac PSV 100 cm/s CV [facility] LAB Right Prox External Iliac PSV 84 cm/s CV [facility] Right AT dist sys PSV 65 cm/s CV [facility] Right AT mid sys PSV 117 cm/s CV [facility] Right AT prox sys PSV 180 cm/s CV V[facility] LAB Right BRICKMASON prox sys PSV 55 cm/s CV V[facility] LAB Right mid peroneal sys PSV 75 cm/s CV V[facility] LAB Right popliteal dist sys PSV 76 cm/s CV V[facility] LAB Right popliteal prox sys PSV 71 cm/s CV [facility] Right PT dist sys PSV 14 cm/s [facility] Right PT mid sys PSV 18 cm/s CV [facility] Right PT prox sys PSV 26 cm/s CV [facility] Right super femoral dist sys PSV 79 cm/s CV [facility] Right super femoral mid sys PSV 91 cm/s [facility] Right super femoral prox sys PSV 74 cm/s [facility] Right profunda sys PSV 44 cm/s CV [facility] Left profunda sys PSV 60 cm/s [facility] Right arm BP 128 mmHg [facility] Left arm BP 131 mmHg [facility] Right posterior tibial 129 mmHg [facility] Right Dorsalis Pedis 113 mmHg [facility] Right MARISOL 0.98 CV [facility] Left posterior tibial 131 mmHg [facility] Left Dorsalis Pedis 143 mmHg [facility] Left MARISOL 1.09 CV [facility] LAB Anatomical Region Laterality Modality Vascular, Abdomen Ultrasound Narrative 09/09/2025 1:58 PM EST Right No significant arterial plaques or stenosis in the right lower extremity with normal flow velocities and waveforms in all arterial segments. Right popliteal is calcified. Triple-vessel runoff in the right calf. Right ankle pressure and ankle-brachial index are normal. Right MARISOL 0.98. Left No significant arterial plaque noted. Mild arterial wall calcification noted. Normal flow velocities and waveforms in all arterial segments in the left lower extremity. Triple vessel runoff in the left calf. Left ankle pressure and ankle-brachial index are normal. Left MARISOL 1.09. Right Lower Arterial Duplex The distal external iliac artery has biphasic flow. The common femoral artery has biphasic flow. The profunda femoris artery has biphasic flow. The proximal superficial femoral artery has biphasic flow. The mid superficial femoral artery has triphasic flow. The distal superficial femoral artery has triphasic flow. The popliteal artery has triphasic flow. The anterior tibial artery has triphasic flow. The proximal anterior tibial artery is turbulent. The posterior tibial artery has biphasic flow. The mid peroneal artery has triphasic flow. Left Lower Arterial Duplex The distal external iliac artery has triphasic flow. The common femoral artery has biphasic flow. The profunda femoris artery has biphasic flow. The superficial femoral artery has biphasic flow. The popliteal artery has biphasic flow. The anterior tibial artery has triphasic flow. The posterior tibial artery has biphasic flow. The mid peroneal artery has biphasic flow. Pharmacy Informaticist Details A bustillos scale, color and doppler analysis ultrasound was performed. During the study longitudinal views were obtained. Continuous wave doppler, pulsed wave doppler and pulsed volume recording (PVR) was performed. Overall the study quality was good. us Mason A Geovanna DPM CV VASCULAR PROCEDURES Meggan l Result from Last 3 Months Insurance MEDICAID - [place] Care Teams Animal Ride Manager Relationship Specialty Start Date End Date China Lemon MD [address] [place] [phone] PCP - General Family Medicine 03/03/25
== END 2025-09-20 14:45 | disposition home or self-care (01) ==
LOC: HO.CT 14:44
PROVIDERS: PCP Family Medicine; Visit Provider Physician Assistant
DX: M17.11 Unilateral primary osteoarthritis, right knee (principal)
CPT/HCPCS: 73700

== ENCOUNTER → 2025-09-20 14:45 | Outpatient (BNV) | payer MEDICAID, SELFPAY | PROVIDERS: PCP Family Medicine; Visit Provider Radiology Diagnostic Ultrasound | DX: M17.11 Unilateral primary osteoarthritis, right knee (principal) | CPT/HCPCS: 73700 ==